=== PATIENT | male | born 1945 | race Caucasian/White ===

== ENCOUNTER 2022-04-10 10:54 | Observation (INO) | payer MEDICARE, MEDICAID, SELFPAY ==
[2022-04-10] VITALS (18 sets, daily range): BP systolic 120–156; BP diastolic 62–93; PULSE 78–101; RESP 12–100; TEMP 36.2–37; O2SAT 98–100; BMI 29.7
--- NOTE | ~2022-04-10 | US_ITS ---
EXAMINATION: US art doppler jessica JEFFERSON DATE: 04/10/2022 14:47 INDICATION: Ischemic second toe TECHNIQUE: Segmental pressures and plethysmographic and Doppler waveforms of the brachial and lower e xtremity arteries were obtained. COMPARISON: None. FINDINGS: Brachial artery pressure of 134 mm Hg . Right brachial artery pressures unable to be obtained due to the presence of intravascular axis at the right upper arm. The right and left high-thigh pressure ind ices are 1.21 and 1.31, respectively (normal > 1.2). Pressures unable to be obtained at the bilateral great toes due to wounds on both toes. The right ankle-brachial index (PATRICE) is 1.22 (normal >= 0.9-1). The right lower extremity segmental p ressure gradients are normal (normal gradients <= 20-30 mmHg between adjacent levels on the same leg or the same levels on the two legs). Arterial waveforms are triphasic at the right common femoral and dorsalis pedis arteries and biphasic at the right superficial femoral, popliteal and posterior tibia l arteries, each with brisk systolic upstrokes. The left PATRICE is 1.22. The left lower extremity segmental pressure gradients are normal. Arterial wave forms are triphasic at the left common femoral, superficial femoral, popliteal, dorsalis pedis arteri es and biphasic at the left posterior tibial artery, each with brisk systolic upstrokes. IMPRESSION: 1. Normal PATRICE's bilaterally. No significant occlusive disease. Reviewed, dictated and finalized at location A.
--- NOTE | ~2022-04-10 | XR_ITS ---
XR foot RT 2V 04/10/2022 12:10 Indication: Right second toe pain. Possible osteomyelitis. Procedure: 2 views right foot Comparison: No prior studies for comparison. Findings: There is a transverse lucency in the proximal aspect of the first distal phalanx. Cannot ex clude nondisplaced fracture. Osteopenia. No definite erosive changes or periosteal reaction to sugges t osteomyelitis. Lisfranc joint is grossly intact. There is soft tissue swelling surrounding the seco nd distal phalanx. No foreign bodies. Impression: 1: No definite evidence for osteomyelitis. Moderate soft tissue swelling surrounding the second dista l phalanx. Consider correlation with MRI if there is continuing clinical concern for osteomyelitis. 2: Possible nondisplaced transverse fracture proximal aspect of the first distal phalanx. Correlate f or point tenderness. Reviewed, dictated and finalized at location A. Impression: 1: No definite evidence for osteomyelitis. Moderate soft tissue swelling surrou nding the second distal phalanx. Consider correlation with MRI if there is cont inuing clinical concern for osteomyelitis. 2: Possible nondisplaced transverse fracture proximal aspect of the first dista l phalanx. Correlate for point tenderness.
[2022-04-10] MEDS: MORPHINE SULFATE (*CRX) 4 MG/ML INJ IV PUSH (11:44)
--- NOTE | 2022-04-10 11:53 | ED.GENADULT ---
HPI - General Adult General Chief complaint: Extremity Injury, Lower Stated complaint: right foot pain Time Seen by Provider: 04/10/22 11:12 History of Present Illness HPI narrative: 76-year-old male presents emergency room secondary pain to his right foot. He states she just been hobbling on it lately. He has not had good medical care or good hygiene for quite some time. He complaining of some tenderness to his right second toe. He has been putting layers and layers of bandages on it at this point. Denies any chills or fevers. He has not seen a physician in many years. He has been having this issue for several months. Related Data Home Medications Medication Instructions Recorded Confirmed No Home Medications 04/10/22 04/10/22 Allergies Allergy/AdvReac Type Severity Reaction Status Date / Time No Known Allergies Allergy Verified 08/31/17 15:07 Review of Systems Review of Systems: CONSTITUTIONAL: Denies fever, chills, or sweats. EYES: Denies visual changes, redness, or discharge. ENT: Denies rhinorrhea, congestion, sore throat, or otalgia. CARDIOVASCULAR: Denies chest pain, palpitations, or edema. RESPIRATORY: Denies cough or dyspnea. GASTROINTESTINAL: Denies abdominal pain, nausea, vomiting, or diarrhea. GENITOURINARY: Denies dysuria or hematuria. SKIN: Denies rash or itching. MUSCULOSKELETAL: Denies back pain, joint pain, or myalgia. Severe pain to the right foot NEUROLOGIC: Denies headache, numbness, or weakness. PSYCHIATRIC: Denies anxiety or depression. [facility] Past Medical History Medical History CAD (coronary artery disease) History of hyperlipidemia Not currently on medication. According to his records. History of hypertension Not currently on medication. HTN in history according to his records. History of obstructive sleep apnea According to his records Surgical History Surgical History History of cardiac catheterization 2019 Family History Family History (Updated 04/10/22 @ 16:14 by ARYAN Boyd) Other Family history unknown Social History Social History Living arrangements: with family Additional living arrangements comments: Lives with his brother Exam Narrative: APPEARANCE: Well appearing, no pain or distress, well-nourished. Head normocephalic and atraumatic. EYES: PERRLA/EOMI, conjunctivae very clear. NOSE: Normal with no drainage EARS:TMS clear Kevin Cheek, with good light reflex. THROAT: Pharynx clear, no exudate. NECK: Supple. No adenopathy, no masses. RESPIRATORY: Airway patent, respirations nonlabored. Clear to auscultation bilaterally, no rales, rhonchi, wheezing. CARDIOVASCULAR: Regular rate and rhythm without murmurs, rubs, or gallops. ABDOMINAL: Soft, nontender, nondistended, no hepatosplenomegaly Musculoskeletal: Moves all extremities. Strength/ROM intact, No edema, No calf tenderness. Extremely poor care of his feet. He has very large overgrown toenails. He has multiple layers of bandages to his right second toe. Is noted to be enlarged and swollen. On the plantar aspect at the metatarsal phalangeal joint area is an open lesion with purulent drainage and very foul-smelling. Patient was administered IV morphine and his pain is controlled and I was able to remove all the bandages from around the second toe. Patient is got soft tissue damage to the plantar aspect to the point that I can see the flexor tendons on the plantar aspect of the second right toe. NEURO: Alert. Cranial nerves II through XII intact. Normal gait. Good coordination. Nonfocal examination. SKIN:: Warm, dry. Normal Color PSYCHIATRIC: Normal affect/mood, normal interaction Course Vital Signs Vital signs: Vital Signs Temperature 97.1 F L 04/10/22 10:56 Pulse Rate 78 04/10/22 10:56 Respiratory Rate 100 H
[2022-04-10 12:09] LABS: Basophils Percent Auto 0.2 % (0.2-1.2); Eosinophils Absolute Auto 0.1 K/mm3 (0-0.3); Eosinophils Percent Auto 0.8 % (0-4.4); Hematocrit 41.6 % (42.0-52.0); Hemoglobin 13.8 g/dL (14.0-18.0); Immature Granulocyte Absolute 0.04 K/mm3 (0.00-0.031); Immature Granulocyte Percent A 0.4 % (0-0.5); Immature Platelet Fraction Pct 35.2 % (0.9-11.2); Lymphocytes Absolute Auto 0.91 K/mm3 (0.9-3.2); Lymphocytes Percent Auto 9.4 % (18.3-44.2); Mean Corpuscular HGB Conc 33.2 g/dl (32-36); Mean Corpuscular Hemoglobin 29.4 pg (26-34); Mean Corpuscular Volume 88.7 fl (80-100); Monocytes Absolute Auto 0.7 K/mm3 (0.1-0.6); Monocytes Percent Auto 7.3 % (2.6-8.5); Neutrophils Absolute Auto 7.9 K/mm3 (1.3-6.7); Neutrophils Percent Auto 81.9 % (45.5-73.1); Red Blood Count 4.69 M/mm3 (4.6-6.20); Red Cell Distribution Width 12.7 % (11.5-14.5); White Blood Count 9.7 K/mm3 (4.5-10.0)
[2022-04-10 12:19] LABS: Alanine Aminotransferase 11 U/L (6-50); Alkaline Phosphatase 97 U/L (38-126); Anion Gap 7 mmol/L (8-16); Aspartate Amino Transferase 18 U/L (17-59); Bilirubin,Total 0.8 mg/dL (0.2-1.3); Blood Urea Nitrogen 14 mg/dL (9-20); Calcium 8.2 mg/dL (8.4-10.2); Carbon Dioxide 27 mmol/L (22-30); Chloride 101 mmol/L (98-107); Estimated CRCL calculation 47 ml/min; Estimated Glomerular Filt Rate 59; Glucose 99 mg/dL (65-110); Potassium 4.3 mmol/L (3.4-5.0); Sodium 135 mmol/L (137-145)
[2022-04-10 12:22] LABS: CRP 6.2 mg/dL (<1.0)
[2022-04-10 12:35] LABS: Platelet Count Result < 3 k/mm3 (150-375)
[2022-04-10 14:04] LABS: SARS-CoV-2 RNA PCR Negative
--- NOTE | 2022-04-10 14:08 | PC.NURSE ---
PT has scaly skin including red under abd/groin area with an odor noted. Pt stated that the dsg to his right 2nd toe has been in place for a long time. Pt also has a dressing to his toe on his left foot but this was not removed per pt's request/ MD at bedside during assessment.
--- NOTE | 2022-04-10 15:35 | PM.IMHP ---
H&P: HPI History of Present Illness Date/Time: 04/10/22 15:35 Chief Complaint: Right foot pain. Narrative: This is a 76-year-old male with history of coronary artery disease, hypertension, hyperlipidemia, ITP, and other comorbidities who presented to the emergency department via EMS from home for evaluation of right foot pain for couple of months. He has a cognitive deficit with a poor memory and as such he is not the greatest historian and thus some of the following is obtained via a review of his electronic medical records. I also spoke with his brother Boni chavez with the patient's permission. Over the past couple of weeks, he has had increasing pain in the bottom of the right foot which he is not able to really qualify. He noticed a small wound on the right 2nd toe and he has been keeping this covered with a Band-Aid. He does not recall injuring the area but admits that he walks around barefoot a lot of the time. Unfortunately the pain in the foot has continued to get worse and he came in for evaluation today. Imaging of that foot showed no definitive evidence to suggest osteomyelitis though he has been started on antibiotics for possible infection. Also of note, he was found to have a platelet count of less than 3000 on initial lab draw. Repeat CBC confirms of thrombocytopenia with a platelet count of 8000. Looking back through his chart he does have a history of ITP in 2017 for which he was hospitalized and seen by Dr. Darden. The patient has not noticed any significant bleeding or rash though he has a fine petechial rash on his extremities on exam. He currently has no complaints. Review of Systems Review of Systems: Twelve systems were reviewed. No fever, chills, or sweats. No cold or flu symptoms. No sick contacts. No gingival bleeding, epistaxis, hematemesis, melena, hematochezia, or hematuria. Appetite has been good. No nausea, vomiting, or diarrhea. Except as documented, all other systems were reviewed and are negative. [facility] Past Medical History Medical History (Updated 04/10/22 @ 21:32 by Karina Campbell PA-C) Anxiety Coronary artery disease STEMI in fall 2018 status post PCI to the LAD. Hydrocephalus Hyperlipidemia Noted in previous records. Not currently on medication. Hypertension Noted in previous records. Not currently on medication. Intellectual disability Obstructive sleep apnea Noted in previous records. He does not use a CPAP. Surgical History Surgical History (Updated 04/10/22 @ 21:32 by Karina Campbell PA-C) History of appendectomy History of cardiac catheterization (2018) Fall 2018: PCI to the LAD done at [place]. 07/11/2019: Balloon angioplasty to the distal terminal LAD. History of esophagogastroduodenoscopy Family History Family History (Updated 04/10/22 @ 21:29 by Karina Campbell PA-C) Other Diabetes mellitus Social History Social History (Updated 04/10/22 @ 21:33 by Karina Campbell PA-C) Social History: Surrogate decision maker: Boni Melendrezbrother almendarez. Code status: Full code. Smoking status: Former smoker Alcohol intake: never Substance use: never Living arrangements: with family Additional living arrangements comments: The patient lives with his brother in [place]. Spiritual care concerns: No Meds Home Medications and Allergies Home Medications Medication Instructions Recorded Confirmed Type No Home Medications 04/10/22 04/10/22 History Allergies Allergy/AdvReac Type Severity Reaction Status Date / Time No Known Allergies Allergy Verified 08/31/17 15:07 Vital Signs Vital Signs - 24 hr 04/10/22 10:56 04/10/22 11:16 04/10/22 11:22 Temperature 97.1 F L 98.6 F 97.8 F Pulse Rate 78 101 H 87 Respiratory Rate 100 H 12 18 Blood Pressure 120/79 136/89 130/68 Pulse Oximetry 98 98 100 Oxygen Delivery Room Air 04/10/22 11:13 04/10/22 11:14 04/10/22 14:45 Temperature Pulse Rate Respiratory Rate Blood Pres
--- NOTE | 2022-04-10 15:58 | PM.CNGS ---
Assessment and Plan Assessment and plan (1) Open wound of right foot: Code(s): S91.301A - Unspecified open wound, right foot, initial encounter Status: Acute Assessment and Plan: This is the reason for our consultation. He has an open right second toe wound of unknown origin that has tendon widely exposed. His toe is swollen but there is no obvious purulent drainage at the time of my exam. No evidence of osteomyelitis on plain films. ABIs show no occlusive arterial disease. Will start local wound care with silver gel dressing changes daily, which would also aid in keeping the tendon moist. Due to the exposed tendon, we would recommend orthopedic surgery evaluation. May need further eval with MRI, but will await orthopedic recommendations. Will also consult wound care to help clean up his feet and toenails tomorrow. Thank you for allowing us to see the patient in consultation. (2) Thrombocytopenia: Code(s): D69.6 - Thrombocytopenia, unspecified Status: Acute Assessment and Plan: Platelets < 3,000 which is a contraindication for any surgical procedure, but fortunately there is no need for any urgent surgical intervention at this time. Management per Hospitalist. Monitor labs. (3) Poor personal hygiene: Code(s): R46.0 - Very low level of personal hygiene Status: Acute Assessment and Plan: Discussed the importance of taking care of his foot and keeping this wound clean. Plan I have discussed the patient's case and plan of care with Dr. Dixon. History of Present Illness Consult details Consult date: 04/10/22 Reason for consult: wound care (Right 2nd toe wound) Requesting physician: Alonso Liang, Narrative: This is a 76 yo male who presented to the ER with a right 2nd toe wound. The patient is a poor historian and is unable to provide much history. He cannot recall when or how the wound started, but believes he has been having pain in his foot for at least 2-3 months. He cannot recall any injury. He cannot recall any of his health history. He doesn't recall the last time he washed his feet, but states it isn't very often. Work-up in the ER showed a normal white blood cell count with severe thrombocytopenia with platelets of < 3,000. The ER physician found layers and layers of bandages over his right foot that took a substantial amount of time to remove. He was given IV Morphine for his foot pain. After removing all bandages, he was found to have a wound on the plantar aspect of his second toe with tendon exposed and suspected infection. X-rays of the right foot showed no evidence of osteomyelitis. There is noted to be soft tissue swelling of the right second toe and possible fracture of the proximal aspect of the first distal phalanx. He has no point tenderness on exam. ABIs done in ER and normal. Our service was consulted for the right toe wound. He will be admitted to the Hospitalist. Type and screen has been ordered. Review of Systems Review of Systems: ROS unobtainable: Yes unobtainable due to mental status and other (Limited due to him being a poor historian) [facility] Past Medical History Medical History CAD (coronary artery disease) History of hyperlipidemia Not currently on medication. According to his records. History of hypertension Not currently on medication. HTN in history according to his records. History of obstructive sleep apnea According to his records Surgical History Surgical History History of cardiac catheterization 2019 Family History Family History (Updated 04/10/22 @ 16:14 by ARYAN Boyd) Other Family history unknown Social History Social History Living arrangements: with family Additional living arrangements comments: Lives with his brother Meds Home Medications and A
[2022-04-10 16:02] LABS: Basophils Percent Auto 0.3 % (0.2-1.2); Eosinophils Absolute Auto 0.1 K/mm3 (0-0.3); Eosinophils Percent Auto 1.1 % (0-4.4); Hematocrit 38.9 % (42.0-52.0); Hemoglobin 13.3 g/dL (14.0-18.0); Immature Granulocyte Absolute 0.05 K/mm3 (0.00-0.031); Immature Granulocyte Percent A 0.5 % (0-0.5); Lymphocytes Absolute Auto 1.31 K/mm3 (0.9-3.2); Lymphocytes Percent Auto 12.9 % (18.3-44.2); Mean Corpuscular HGB Conc 34.2 g/dl (32-36); Mean Corpuscular Hemoglobin 29.8 pg (26-34); Mean Corpuscular Volume 87.2 fl (80-100); Monocytes Absolute Auto 0.8 K/mm3 (0.1-0.6); Monocytes Percent Auto 7.4 % (2.6-8.5); Neutrophils Absolute Auto 7.9 K/mm3 (1.3-6.7); Neutrophils Percent Auto 77.8 % (45.5-73.1); Red Blood Count 4.46 M/mm3 (4.6-6.20); Red Cell Distribution Width 12.9 % (11.5-14.5); White Blood Count 10.1 K/mm3 (4.5-10.0)
[2022-04-10 16:27] LABS: Platelet Count Result 8 k/mm3 (150-375)
[2022-04-10] MEDS: methylPREDNISolone SOD SUCC 125 MG VIAL IV PUSH (17:57)
[2022-04-10] MEDS: EUCERIN CREAM 120 GM JAR 1 APPLIC TOPICAL (18:00)
--- NOTE | 2022-04-10 18:24 | ADMGEN ---
This patient, Eduardo Flores, was admitted to 3 Med Surg Room 315-01. Patient/family oriented to hospital policies and general routines including ID bracelet, bed and alarms, visiting hours, pain management, procedures, bathroom and other care routines, personal items, smoking policy, room service/diet, and visiting hours. Information on how to activate the Rapid Response Team has been discussed. Patient/Family are encouraged to report perceived risks to care and to ask questions if they do not understand what they are told or what they should do.
[2022-04-11] VITALS (10 sets, daily range): BP systolic 107–146; BP diastolic 63–80; PULSE 71–89; RESP 16–18; TEMP 36.1–37; O2SAT 95–100
[2022-04-11] MEDS: methylPREDNISolone SOD SUCC 125 MG VIAL IV PUSH ×2 (06:11→17:52)
[2022-04-11 07:58] LABS: Hematocrit 46.4 % (42.0-52.0); Hemoglobin 15.7 g/dL (14.0-18.0); Immature Platelet Fraction Pct 46.2 % (0.9-11.2); Mean Corpuscular HGB Conc 33.8 g/dl (32-36); Mean Corpuscular Hemoglobin 29.7 pg (26-34); Mean Corpuscular Volume 87.7 fl (80-100); Red Blood Count 5.29 M/mm3 (4.6-6.20); Red Cell Distribution Width 12.5 % (11.5-14.5); White Blood Count 9.7 K/mm3 (4.5-10.0)
[2022-04-11 08:02] LABS: Anion Gap 9 mmol/L (8-16); Blood Urea Nitrogen 17 mg/dL (9-20); Calcium 8.3 mg/dL (8.4-10.2); Carbon Dioxide 23 mmol/L (22-30); Chloride 102 mmol/L (98-107); Estimated CRCL calculation 50 ml/min; Estimated Glomerular Filt Rate > 60; Glucose 145 mg/dL (65-110); Magnesium 2.3 mg/dL (1.6-2.3); Potassium 4.4 mmol/L (3.4-5.0); Sodium 134 mmol/L (137-145)
[2022-04-11 08:15] LABS: Platelet Count Result < 3 k/mm3 (150-375)
[2022-04-11] MEDS: SILVERGEL (ELTA) 45 ML 1 APPLIC TOPICAL (09:30)
--- NOTE | 2022-04-11 10:37 | PM.PNGS ---
Progress Note: A&P Assessment and Plan (1) Open wound of right foot: Code(s): S91.301A - Unspecified open wound, right foot, initial encounter Status: Acute Assessment and Plan: appreciate wound care input, await ortho recs, no acute surgical issues as wound is clean and there is no s/s infection Subjective Subjective Date/Time Seen: 04/11/22 10:37 no acute issues, still c/o pain in R foot but not worse Review of Systems Review of Systems: All systems reviewed & are unremarkable except as noted in HPI and below Exam Const: General: cooperative, comfortable and poor hygiene Resp: Auscultation: clear to auscultation bilaterally Cardio: Rate: regular rate Rhythm: regular rhythm GI: GI Palp: No abdominal tenderness and Yes Soft to palpation Skin: Other: R foot - dressing C/D/I Objective Data Vital Signs Vital Signs: Vital Signs - 24 hr 04/10/22 10:56 04/10/22 11:16 04/10/22 11:22 Temperature 36.2 C L 37.0 C 36.6 C Pulse Rate 78 101 H 87 Respiratory Rate 100 H 12 18 Blood Pressure 120/79 136/89 130/68 Pulse Oximetry 98 98 100 Oxygen Delivery Room Air 04/10/22 11:13 04/10/22 11:14 04/10/22 14:45 Temperature Pulse Rate Respiratory Rate Blood Pressure 146/93 H 142/62 H Pulse Oximetry 100 100 100 Oxygen Delivery 04/10/22 14:46 04/10/22 15:01 04/10/22 15:08 Temperature Pulse Rate Respiratory Rate Blood Pressure 126/66 126/64 Pulse Oximetry 100 100 100 Oxygen Delivery 04/10/22 15:17 04/10/22 15:31 04/10/22 15:46 Temperature Pulse Rate Respiratory Rate Blood Pressure 135/75 156/72 H Pulse Oximetry 100 Oxygen Delivery 04/10/22 16:01 04/10/22 16:16 04/10/22 17:15 Temperature Pulse Rate Respiratory Rate Blood Pressure 130/66 127/62 Pulse Oximetry 100 Oxygen Delivery 04/10/22 17:30 04/10/22 18:22 04/10/22 22:00 Temperature 36.9 C Pulse Rate 91 82 Respiratory Rate 16 16 Blood Pressure 139/69 139/69 Pulse Oximetry 99 99 99 Oxygen Delivery 04/10/22 20:00 04/11/22 06:00 Temperature 36.1 C L Pulse Rate 78 Respiratory Rate 16 Blood Pressure 146/72 H Pulse Oximetry 100 Oxygen Delivery Room Air Intake/Output Intake/Output: Intake & Output 04/08/22 04/09/22 04/10/22 04/11/22 23:59 23:59 23:59 23:59 Intake Total 250 950 Output Total 200 Balance 250 750 Meds/Results Medications: Active Medications Generic Name Dose Route Start Last Admin Trade Name Hailey PRN Reason Stop Dose Admin Methylprednisolone Sodium Succinate 125 mg 04/11/22 06:00 04/11/22 06:11 Methylprednisolone Sod Succ 125 Mg Vial IV PUSH 125 mg Q12H MARIEL Administration Multi-Ingred Cream/Lotion/Oil/Oint 1 applic 04/11/22 09:00 04/10/22 18:00 Eucerin Cream 120 Gm Jar TOPICAL 1 applic DAILY MARIEL Administration Pantoprazole Sodium 40 mg 04/11/22 09:00 Pantoprazole 40 Mg Tablet PO QAM MARIEL Silver Nitrate 1 applic 04/10/22 16:05 04/10/22 20:30 Silvergel (Elta) 45 Ml TOPICAL Not Given DAILY [facility] Radiology Results: ITS Impressions Foot X-Ray 04/10/22 12:17 Impression: 1: No definite evidence for osteomyelitis. Moderate soft tissue swelling surrounding the second distal phalanx. Consider correlation with MRI if there is continuing clinical concern for osteomyelitis. 2: Possible nondisplaced transverse fracture proximal aspect of the first distal phalanx. Correlate for point tenderness. Doppler Study Ultrasound 04/10/22 14:51 IMPRESSION: 1. Normal PATRICE's bilaterally. No significant occlusive disease. Labs Labs: Laboratory Results - last 24 hr 04/10/22 04/10/22 04/10/22 11:57 11:57 11:57 WBC 9.7 RBC 4.69 Hgb 13.8 L Hct 41.6 L MCV 88.7 MCH 29.4 MCHC 33.2 RDW 12.7 Plt Count < 3 L* MPV TNP Immature Gran % (Auto) 0.4 Neut % (Auto) 81.9 H Lymph % (Auto) 9.[address] [place] % (Auto) 7.3 Eos % (
[2022-04-11] MEDS: PANTOPRAZOLE 40 MG TABLET PO (10:39)
--- NOTE | 2022-04-11 15:56 | PM.IMPN ---
Progress Note: A&P Assessment and Plan (1) Open wound of right foot: Code(s): S91.301A - Unspecified open wound, right foot, initial encounter Status: Acute Assessment and Plan: The patient cannot provide details regarding the wound, how or when it was obtained. General surgery was consulted and appreciate their input. Wound nurse has also been consulted. Does not appear to be infected. Plan to continue wound care. (2) Thrombocytopenia: Code(s): D69.6 - Thrombocytopenia, unspecified Status: Acute Assessment and Plan: Patient has a history of ITP. Dr. Darden was consulted and he recommended starting Solu-Medrol 125 mg b.i.d. At this time there is no active bleeding. Plt count <3000. Discussed with Dr Darden with plans for transfusion today. Continue bleeding precautions and repeat platelet count in the morning. (3) Coronary artery disease: Code(s): I25.10 - Atherosclerotic heart disease of [place] coronary artery without angina pectoris Status: Acute Assessment and Plan: Patient with CAD status post PCI to the LAD in the fall of 2018. He is not currently taking any medications at home. No symptoms. Continue to monitor (4) Hypertension: Code(s): I10 - Essential (primary) hypertension Status: Acute Assessment and Plan: Patient's blood pressure was reviewed on 04/11. Patient with diet-controlled hypertension. Blood pressure remains well controlled. Continue to follow. Subjective Date/time seen: 04/11/22 15:56 Interval history: 76yo male with intellectual disability, ITP, CAD, HTN and ITP here for right foot pain. Patient feels well today. No complaints of CP or SOB. No significant right foot pain. Eating well. No n/v. Denies melena, hematochezia, hematuria or hemoptysis. Exam Narrative: AF 97.6 114/65 71 16 99% ra Gen - NARD sitting up in chair feeding himself Chest - CTA bilaterally, nml RR CV - RRR S1/S2 Abd - Soft, NT/ND, Positive BS. no obvious splenomegaly Ext - No pedal edema. right foot dressing with small dried red stain overlying the toes o/w clean/dry/intact Psych - Nml mood and affect. in good spirits Skin - Warm and dry. diffuse petechial rash. Objective Data Vital Signs Vital Signs: Vital Signs - 24 hr 04/10/22 16:01 04/10/22 16:16 04/10/22 17:15 Temperature Pulse Rate Respiratory Rate Blood Pressure 130/66 127/62 Pulse Oximetry 100 Oxygen Delivery 04/10/22 17:30 04/10/22 18:22 04/10/22 22:00 Temperature 98.5 F Pulse Rate 91 82 Respiratory Rate 16 16 Blood Pressure 139/69 139/69 Pulse Oximetry 99 99 99 Oxygen Delivery 04/10/22 20:00 04/11/22 06:00 04/11/22 08:50 Temperature 96.9 F L Pulse Rate 78 Respiratory Rate 16 Blood Pressure 146/72 H Pulse Oximetry 100 Oxygen Delivery Room Air Room Air 04/11/22 13:26 Temperature 97.6 F Pulse Rate 71 Respiratory Rate 16 Blood Pressure 114/65 Pulse Oximetry 99 Oxygen Delivery Intake/Output Intake/Output: Intake & Output 04/08/22 04/09/22 04/10/22 04/11/22 23:59 23:59 23:59 23:59 Intake Total 250 2350 Output Total 400 Balance 250 1950 Meds/Results Medications: Active Medications Generic Name Dose Route Start Last Admin Trade Name Freq PRN Reason Stop Dose Admin Methylprednisolone Sodium Succinate 125 mg 04/11/22 06:00 04/11/22 06:11 Methylprednisolone Sod Succ 125 Mg Vial IV PUSH 125 mg Q12H MARIEL Administration Multi-Ingred Cream/Lotion/Oil/Oint 1 applic 04/11/22 09:00 04/10/22 18:00 Eucerin Cream 120 Gm Jar TOPICAL 1 applic DAILY MARIEL Administration Pantoprazole Sodium 40 mg 04/11/22 09:00 04/11/22 10:39 Pantoprazole 40 Mg Tablet PO 40 mg QAM MARIEL Administration Silver Nitrate 1 applic 04/10/22 16:05 04/10/22 20:30 Silvergel (Elta) 45 Ml TOPICAL Not Given DAILY [facility] Radiology Results: ITS Impressions Foot X-Ray 04/10/22 12:1
--- NOTE | 2022-04-11 16:22 | PDONCCN ---
[facility] - Date of Consult Date/Time: 04/11/22 16:22 Requesting Physician: Moody House MD Primary Care Provider: UNKNOWN,DOCTOR - Consult Narrative Reason for consult: ITP Narrative: Eduardo Flores is a 76 year old male with history of chronic ITP, coronary artery disease and hyperlipidemia came into the ER with right foot pain going on for couple of months duration. He denies any prior injury. Foot x-ray showed no definite evidence of osteomyelitis. Patient is a poor historian. He denies any bleeding but does have some bruises in hands. He denies any fevers and chills. He denies any new lumps bowels and lymphadenopathy. No melena hematochezia. Labs showed platelet count of less than 3000. Patient has a history of ITP and was seen last in September 2017. At that time his platelet count was 5000 on admission. He received treatment with a steroid at that time. He also received IV IgG treatment. Review of Systems - Review of Systems All systems reviewed & are unremarkable except as noted in [facility] and [facility] Medical History: Medical History (Last Updated 04/10/22 @ 21:32 by Karina Campbell PA-C) Anxiety Coronary artery disease STEMI in fall 2018 status post PCI to the LAD. Hydrocephalus Hyperlipidemia Noted in previous records. Not currently on medication. Hypertension Noted in previous records. Not currently on medication. Intellectual disability Obstructive sleep apnea Noted in previous records. He does not use a CPAP. Surgical History: Surgical History (Last Updated 04/10/22 @ 21:32 by Karina Campbell PA-C) History of appendectomy History of cardiac catheterization Onset Date: fall: PCI to the LAD done at [facility]. 07/11/2019: Balloon angioplasty to the distal terminal LAD. History of esophagogastroduodenoscopy Family History: Family History (Last Updated 04/10/22 @ 21:29 by Karina Campbell PA-C) Other Diabetes mellitus - Social History Social History: Social History (Last Updated 04/10/22 @ 21:33 by Karina Campbell PA-C) Alcohol Use: Alcohol intake: never Substance Use: Substance use: never Others: Spiritual care concerns: No Living Arrangements: Living arrangements: with family Smoking Status: Smoking status: Former smoker Meds Home Medications Medication Instructions Recorded Confirmed Type No Home Medications 04/10/22 04/10/22 History Allergies Allergy/AdvReac Type Severity Reaction Status Date / Time No Known Allergies Allergy Verified 08/31/17 15:07 Results - Labs CBC & Chem 7: 04/11/22 07:34 04/11/22 07:34 Labs: Short CBC 04/10/22 04/11/22 Range/Units 15:54 07:34 WBC 10.1 H 9.7 (4.5-10.0) K/mm3 Hgb 13.3 L 15.7 (14.0-18.0) g/dL Hct 38.9 L 46.4 (42.0-52.0) % Plt Count 8 L* D < 3 L* D (150-375) k/mm3 BMP 04/11/22 07:34 Sodium 134 L Potassium 4.4 Chloride 102 Carbon Dioxide 23 BUN 17 Creatinine 1.00 Glucose 145 H Calcium 8.3 L Assessment and Plan - Additional Plan Chronic ITP. Patient is now has a flare up of ITP. Likely secondary to the right foot infection. Patient is a poor historian. He was found to have acute ITP in 2016 when his platelet count was only 5000. Now he came into the hospital with right foot infection going on for 2 months duration. Right foot x-ray showed no definitive evidence of osteomyelitis. He denies any fevers and chills. He denies any bleeding. I have reviewed these labs. This is consistent with ITP. Patient has been started on Solu-Medrol 125 mg q.12 hours. Platelet count remains low. We will proceed with 2 units of platelet transfusion today. We will also add IV IgG treatment. Patient will continue prednisone taper upon discharge. I plan to start him on prednisone 60 mg twice a day with 10 mg taper on every 4 day once platelet count is more than 50,000. He can be discharged home onc
[2022-04-11] MEDS: SODIUM CHLORIDE 0.9% IV 250 ML 30 ML IV CONT (18:29)
[2022-04-12 02:26] VITALS: BP 128/80; PULSE 74; RESP 16; TEMP 36.7; O2SAT 96
[2022-04-12 05:49] VITALS: BP 128/59; PULSE 71; RESP 16; TEMP 37.1; O2SAT 96
[2022-04-12] MEDS: methylPREDNISolone SOD SUCC 125 MG VIAL IV PUSH ×2 (06:27→17:29)
[2022-04-12 07:12] LABS: Basophils Percent Auto 0.1 % (0.2-1.2); Hematocrit 37.4 % (42.0-52.0); Hemoglobin 12.5 g/dL (14.0-18.0); Immature Granulocyte Absolute 0.21 K/mm3 (0.00-0.031); Immature Granulocyte Percent A 0.9 % (0-0.5); Immature Platelet Fraction Pct 12.8 % (0.9-11.2); Lymphocytes Absolute Auto 0.65 K/mm3 (0.9-3.2); Lymphocytes Percent Auto 2.9 % (18.3-44.2); Mean Corpuscular HGB Conc 33.4 g/dl (32-36); Mean Corpuscular Volume 86.8 fl (80-100); Mean Platelet Volume 11.5 fl (7.4-10.4); Monocytes Percent Auto 4.4 % (2.6-8.5); Neutrophils Absolute Auto 20.3 K/mm3 (1.3-6.7); Neutrophils Percent Auto 91.7 % (45.5-73.1); Platelet Count Result 75 k/mm3 (150-375); Red Blood Count 4.31 M/mm3 (4.6-6.20); Red Cell Distribution Width 12.6 % (11.5-14.5); White Blood Count 22.1 K/mm3 (4.5-10.0)
[2022-04-12 08:30] LABS: Folic Acid 6.7 ng/mL (2.76->20)
--- NOTE | 2022-04-12 09:16 | PM.PNGS ---
Progress Note: A&P Assessment and Plan (1) Open wound of right foot: Code(s): S91.301A - Unspecified open wound, right foot, initial encounter Status: Acute Assessment and Plan: cont local wound care, no acute issues, will need coverage of tendon vs amputation but can be done as outpt, ok to dc from surgical standpoint once medically stable (2) Thrombocytopenia: Code(s): D69.6 - Thrombocytopenia, unspecified Status: Acute Assessment and Plan: improved c steroids per hematology, cont mgmt per heme Subjective Subjective Date/Time Seen: 04/12/22 09:16 no acute issues, resting comfortably this am Review of Systems Review of Systems: All systems reviewed & are unremarkable except as noted in HPI and below Exam Const: General: no acute distress and poor hygiene Resp: Auscultation: clear to auscultation bilaterally Cardio: Rate: regular rate Rhythm: regular rhythm GI: Inspection: normal to inspection Skin: Other: R foot wound - drsg C/D/I Objective Data Vital Signs Vital Signs: Vital Signs - 24 hr 04/11/22 13:26 04/11/22 18:34 04/11/22 18:55 Temperature 36.4 C 36.1 C L 36.1 C L Pulse Rate 71 88 86 Respiratory Rate 16 18 18 Blood Pressure 114/65 113/70 107/63 Pulse Oximetry 99 96 97 04/11/22 18:58 04/11/22 21:18 04/11/22 21:39 Temperature 36.6 C 36.7 C 36.7 C Pulse Rate 89 84 89 Respiratory Rate 16 16 16 Blood Pressure 124/79 124/80 124/79 Pulse Oximetry 99 99 99 04/11/22 21:25 04/11/22 22:37 04/11/22 23:37 Temperature 36.2 C L 37.0 C 36.9 C Pulse Rate 79 82 86 Respiratory Rate 16 16 16 Blood Pressure 128/71 118/68 128/78 Pulse Oximetry 95 95 95 04/12/22 02:26 04/12/22 05:49 Temperature 36.7 C 37.1 C Pulse Rate 74 71 Respiratory Rate 16 16 Blood Pressure 128/80 128/59 L Pulse Oximetry 96 96 Intake/Output Intake/Output: Intake & Output 07/06/22 07/07/22 07/08/22 07/09/22 23:59 23:59 23:59 23:59 Intake Total 250 3370 1083 Output Total 900 Balance 250 2470 1083 Meds/Results Medications: Active Medications Generic Name Dose Route Start Last Admin Trade Name Hailey PRN Reason Stop Dose Admin Immune Globulin 79 gm/ N/A 790 mls @ 23.7 mls/hr 04/11/22 16:17 04/12/22 02:42 IVPB 04/13/22 01:36 0.5 mg/kg/min ONCE ONE 23.7 mls/hr Administration 0.5 MG/KG/MIN Methylprednisolone Sodium Succinate 125 mg 04/11/22 06:00 04/12/22 06:27 Methylprednisolone Sod Succ 125 Mg Vial IV PUSH 125 mg Q12H MARIEL Administration Multi-Ingred Cream/Lotion/Oil/Oint 1 applic 04/11/22 09:00 04/10/22 18:00 Eucerin Cream 120 Gm Jar TOPICAL 1 applic DAILY MARIEL Administration Silver Nitrate 1 applic 04/10/22 16:05 04/11/22 09:30 Silvergel (Elta) 45 Ml TOPICAL 1 applic DAILY MARIEL Administration Radiology Results: ITS Impressions Foot X-Ray 04/10/22 12:17 Impression: 1: No definite evidence for osteomyelitis. Moderate soft tissue swelling surrounding the second distal phalanx. Consider correlation with MRI if there is continuing clinical concern for osteomyelitis. 2: Possible nondisplaced transverse fracture proximal aspect of the first distal phalanx. Correlate for point tenderness. Doppler Study Ultrasound 04/10/22 14:51 IMPRESSION: 1. Normal PATRICE's bilaterally. No significant occlusive disease. Labs Labs: Laboratory Results - last 24 hr 04/10/22 04/12/22 04/12/22 11:57 07:02 07:02 WBC 22.1 H RBC 4.31 L Hgb 12.5 L D Hct 37.4 L MCV 86.8 MCH 29.0 MCHC 33.4 RDW 12.6 Plt Count 75 L D MPV 11.5 H Immature Gran % (Auto) 0.9 H Neut % (Auto) 91.7 H Lymph % (Auto) 2.9 L [place] % (Auto) 4.4 Eos % (Auto) 0.0 Baso % (Auto) 0.1 L Lymph # (Auto) 0.65 L [place] # (Auto) 1.0 H Eos # (Auto) 0.0 Baso # (Auto) 0.0 Abs Immat Gran (auto) 0.21 H Absolute Neuts (auto) 20.3 H Absolute Nucleated RBC 0.0 Nucleated RBC % 0.0 %
--- NOTE | 2022-04-12 12:29 | PM.IMPN ---
Progress Note: A&P Assessment and Plan (1) Open wound of right foot: Code(s): S91.301A - Unspecified open wound, right foot, initial encounter Status: Acute Assessment and Plan: The patient cannot provide details regarding the wound, how or when it was obtained. General surgery was consulted and appreciate their input. Wound nurse has also been consulted. Does not appear to be infected. Plan to continue current wound care. Plan to return home after discharge with brother. Start PT/OT. (2) Thrombocytopenia: Code(s): D69.6 - Thrombocytopenia, unspecified Status: Acute Assessment and Plan: Patient has a history of ITP. Dr. Darden was consulted and he recommended starting Solu-Medrol 125 mg b.i.d. At this time there is no active bleeding. Plt count was <3000. Patient was transfused 2U platelets. IVIg also started. Plt count up to 75K. Continue steroids. Continue to monitor. (3) Coronary artery disease: Code(s): I25.10 - Atherosclerotic heart disease of [place] coronary artery without angina pectoris Status: Acute Assessment and Plan: Patient with CAD status post PCI to the LAD in the fall of 2018. He is not currently taking any medications at home. No symptoms. Continue to monitor (4) Hypertension: Code(s): I10 - Essential (primary) hypertension Status: Acute Assessment and Plan: Patient's blood pressure was reviewed on 04/12 Patient with diet-controlled hypertension. Blood pressure remains well controlled. Continue to follow. Plan DVT prophylaxis: SCDs Code status: Full Subjective Date/time seen: 04/12/22 12:29 Interval history: 76yo male with intellectual disability, ITP, CAD, HTN and ITP here for right foot pain. Slept well last night. No complaints of chest pain, shortness of breath, nausea, vomiting, cough or abdominal pain. Eating normally. No evidence of acute blood loss. Tolerated the transfusion well last night Exam Narrative: AF 98.7 128/59 71 16 96% ra Gen - NARD lying semi-recumbent in bed Chest - few basilar inspiratory crackles. nml RR CV - RRR S1/S2 Abd - Soft, NT/ND, Positive BS Ext - No pedal edema. Psych - Nml mood and affect. in good spirits Skin - Warm and dry. diffuse petechial rash. Objective Data Vital Signs Vital Signs: Vital Signs - 24 hr 04/11/22 13:26 04/11/22 18:34 04/11/22 18:55 Temperature 97.6 F 97.0 F L 96.9 F L Pulse Rate 71 88 86 Respiratory Rate 16 18 18 Blood Pressure 114/65 113/70 107/63 Pulse Oximetry 99 96 97 Oxygen Delivery 04/11/22 18:58 04/11/22 21:18 04/11/22 21:39 Temperature 98 F 98.1 F 98.1 F Pulse Rate 89 84 89 Respiratory Rate 16 16 16 Blood Pressure 124/79 124/80 124/79 Pulse Oximetry 99 99 99 Oxygen Delivery 04/11/22 21:25 04/11/22 22:37 04/11/22 23:37 Temperature 97.1 F L 98.6 F 98.4 F Pulse Rate 79 82 86 Respiratory Rate 16 16 16 Blood Pressure 128/71 118/68 128/78 Pulse Oximetry 95 95 95 Oxygen Delivery 04/12/22 02:26 04/12/22 05:49 04/12/22 08:00 Temperature 98.1 F 98.7 F Pulse Rate 74 71 Respiratory Rate 16 16 Blood Pressure 128/80 128/59 L Pulse Oximetry 96 96 Oxygen Delivery Room Air Intake/Output Intake/Output: Intake & Output 04/09/22 04/10/22 04/11/22 04/12/22 23:59 23:59 23:59 23:59 Intake Total 250 3370 1203 Output Total 900 Balance 250 2470 1203 Meds/Results Medications: Active Medications Generic Name Dose Route Start Last Admin Trade Name Freq PRN Reason Stop Dose Admin Immune Globulin 79 gm/ N/A 790 mls @ 23.7 mls/hr 04/11/22 16:17 04/12/22 02:42 IVPB 04/13/22 01:36 0.5 mg/kg/min ONCE ONE 23.7 mls/hr Administration 0.5 MG/KG/MIN Methylprednisolone Sodium Succinate 125 mg 04/11/22 06:00 04/12/22 06:27 Methylprednisolone Sod Succ 125 Mg Vial IV PUSH 125 mg Q12H MARIEL Administration Multi-Ingred Cream/Lotion/Oil/Oint 1 applic 04/11/22 09:00
[2022-04-12 14:00] VITALS: BP 102/88; PULSE 76; RESP 18; TEMP 36.4; O2SAT 96
[2022-04-12] MEDS: SILVERGEL (ELTA) 45 ML 1 APPLIC TOPICAL (16:17)
[2022-04-12] MEDS: EUCERIN CREAM 120 GM JAR 1 APPLIC TOPICAL (17:28)
[2022-04-12 21:59] VITALS: BP 128/76; PULSE 79; RESP 18; TEMP 36.6; O2SAT 96
[2022-04-12 22:18] VITALS: O2SAT 96
[2022-04-13] MEDS: methylPREDNISolone SOD SUCC 125 MG VIAL IV PUSH (05:22)
[2022-04-13 05:33] VITALS: BP 132/77; PULSE 83; RESP 18; TEMP 36.9; O2SAT 97
[2022-04-13 06:55] LABS: Basophils Percent Auto 0.1 % (0.2-1.2); Hematocrit 38.2 % (42.0-52.0); Hemoglobin 12.9 g/dL (14.0-18.0); Immature Granulocyte Absolute 0.23 K/mm3 (0.00-0.031); Immature Granulocyte Percent A 1.3 % (0-0.5); Lymphocytes Absolute Auto 0.56 K/mm3 (0.9-3.2); Lymphocytes Percent Auto 3.2 % (18.3-44.2); Mean Corpuscular HGB Conc 33.8 g/dl (32-36); Mean Corpuscular Hemoglobin 29.4 pg (26-34); Monocytes Absolute Auto 0.6 K/mm3 (0.1-0.6); Monocytes Percent Auto 3.5 % (2.6-8.5); Neutrophils Absolute Auto 16.1 K/mm3 (1.3-6.7); Neutrophils Percent Auto 91.9 % (45.5-73.1); Platelet Count Result 114 k/mm3 (150-375); Red Blood Count 4.39 M/mm3 (4.6-6.20); Red Cell Distribution Width 12.7 % (11.5-14.5); White Blood Count 17.5 K/mm3 (4.5-10.0)
[2022-04-13] MEDS: EUCERIN CREAM 120 GM JAR 1 APPLIC TOPICAL (08:36)
[2022-04-13] MEDS: SILVERGEL (ELTA) 45 ML 1 APPLIC TOPICAL (09:17)
[2022-04-13 14:00] VITALS: BP 129/59; PULSE 77; RESP 20; TEMP 35.7; O2SAT 99
--- NOTE | 2022-04-13 16:59 | PCCCNOTE ---
Nurse [facility] called and stated pt needs cab voucher for ride home. Cab voucher provided.
--- NOTE | 2022-04-13 17:00 | PM.DS ---
DS: Admitting Diagnosis Discharge Date 04/13/22 Admitting Diagnosis Right foot pain DS: Discharge Diagnosis Discharge Diagnosis (1) Open wound of right foot: Code(s): S91.301A - Unspecified open wound, right foot, initial encounter Status: Acute Assessment and Plan: The patient cannot provide details regarding the wound, how or when it was obtained. General surgery was consulted and appreciate their input. No indication for surgery. Wound nurse was also consulted. Did not appear to be infected. Plan to continue current wound care. Plan to return home after discharge with brother. (2) Thrombocytopenia: Code(s): D69.6 - Thrombocytopenia, unspecified Status: Acute Assessment and Plan: Patient has a history of ITP. Plately count was <3000. Dr. Darden was consulted and he recommended starting Solu-Medrol 125 mg b.i.d. There was no active bleeding. Patient was transfused 2U platelets. IVIg started. Plt count up to 114K. Discussed with Dr Darden who recommended Prednisone 60mg BID to wean by 10mg every 3 days until off. Plan to discharge with a tapering course of steroids as outpatient. A hand typed prednisone tapering schedule was given with decreasing the evening dose by 10mg every 3 days until off then taper the morning dose. (3) Coronary artery disease: Code(s): I25.10 - Atherosclerotic heart disease of [place] coronary artery without angina pectoris Status: Acute Assessment and Plan: Patient with CAD status post PCI to the LAD in the fall of 2018. He is not currently taking any medications at home. No symptoms. Continue to monitor (4) Hypertension: Code(s): I10 - Essential (primary) hypertension Status: Acute Assessment and Plan: Patient's blood pressure was monitored closely. Patient with diet-controlled hypertension. Blood pressure remained well controlled. DS: Summary Hospital Course Reason for hospitalization: 76yo male with intellectual disability, ITP, CAD, HTN and ITP here for right foot pain. Please see H&P for details. Hospital Course: Please see above for details of hospital course. Status at Discharge Cognitive/behavioral status at discharge: Stable Time Spent with Patient Time attestation: Total time spent providing and/or coordinating discharge services: 35 minutes Time spent: Greater than 30 minutes Exam Narrative: AF 96.2 129/59 77 20 99% ra Gen - NARD lying semi-recumbent in bed Chest - CTA bilaterally, nml RR CV - RRR S1/S2 Abd - Soft, NT/ND, Positive BS Ext - No pedal edema. Right foot dressing clean and dry Psych - Nml mood and affect. Skin - Warm and dry. diffuse petechial rash. small shallow ulcer mid back without drainage or erythema. DS: Data Data Completed and Pending Labs on day of discharge: Labs from last 24 hours 04/13/22 06:11 WBC 17.5 H RBC 4.39 L Hgb 12.9 L Hct 38.2 L MCV 87.0 MCH 29.4 MCHC 33.8 RDW 12.7 Plt Count 114 L D MPV 12.0 H Immature Gran % (Auto) 1.3 H Neut % (Auto) 91.9 H Lymph % (Auto) 3.2 L [place] % (Auto) 3.5 Eos % (Auto) 0.0 Baso % (Auto) 0.1 L Lymph # (Auto) 0.56 L [place] # (Auto) 0.6 Eos # (Auto) 0.0 Baso # (Auto) 0.0 Abs Immat Gran (auto) 0.23 H Absolute Neuts (auto) 16.1 H Absolute Nucleated RBC 0.0 Nucleated RBC % 0.0 Discharge Plan Discharge Attending physician on discharge: Joseph House Consulting providers: Jovita Dixon ; Tomasz Darden Discharging Clinician: Joseph House Anticipated Discharge Date/Time: 04/13/22 17:10 Patient Disposition: Home, Self-Care Activity: as tolerated Diet: heart healthy Discharge Instructions: WOUND CARE TO THE RIGHT TOE: Apply silver gel to right 2nd toe wound DAILY and cover with gauze, wrap with Kerlex to keep the gauze in place. Take precautions to avoid falls. Rise slowly from a lying or sitting position. Pause before standing
--- NOTE | 2022-04-13 17:50 | PC.NURSE ---
Went over discharge instructions with Boni Flores brother and caregiver of Eduardo.
[2022-04-14 19:22] LABS: Platelet Antibody, Direct IgG NEGATIVE (NEGATIVE)
--- NOTE | 2022-04-22 10:06 | PC.NURSE ---
Plt Ab direct is negative. Dr. Harsh christian.
== END 2022-04-13 19:05 | disposition home or self-care (01) ==
LOC: ANHED 15:18 → ANH3MEDSUR 17:05
PROVIDERS: Internal Medicine Hematology & Oncology; Physician Assistant; Admitting Provider Internal Medicine; Emergency Provider Emergency Medicine; Visit Provider Internal Medicine
DX: S91.301A Unspecified open wound, right foot, initial encounter (principal); D69.6 Thrombocytopenia, unspecified; M79.89 Other specified soft tissue disorders; R46.0 Very low level of personal hygiene; I10 Essential (primary) hypertension; I25.10 Atherosclerotic heart disease of native coronary artery without angina pectoris; I25.2 Old myocardial infarction; G47.33 Obstructive sleep apnea (adult) (pediatric); F79 Unspecified intellectual disabilities; D69.3 Immune thrombocytopenic purpura; Z87.891 Personal history of nicotine dependence; X58.XXXA Exposure to other specified factors, initial encounter; Z20.822 Contact with and (suspected) exposure to COVID-19
CPT/HCPCS: 36415; 36430; 73620; 80048; 80053; 82607; 82746; 83735; 84443; 85025; 85027; 85055; 86023; 86140; 86850; 86900; 86901; 93923; 96365; 96366; 96367; 96375; 96376; 97161; 97165; 99285; A9270; C9803; G0378; J1459; J2270; J2930; J3370; J7050; P9034; U0003; U0005

== ENCOUNTER 2022-04-25 10:59 | Outpatient (CLI) | payer MEDICARE, MEDICAID, SELFPAY ==
--- NOTE | ~2022-04-25 | XR_ITS ---
EXAMINATION: XR ankle RT min 3V, XR foot RT min 3V DATE: 04/25/2022 12:30 INDICATION: Toe cellulitis at the right foot TECHNIQUE: 1. Anteroposterior, mortise, additional oblique and lateral view of the right ankle were obtained. 2. Dorsoplantar, two oblique and lateral views of the right foot were obtained. COMPARISON: None. FINDINGS: Hallux valgus. Alignment of the right foot and ankle is otherwise normal. No fracture. Polyarticular osteoarthritis, moderate severity at the tibiotalar joint and mild at the subtalar, first metatarsoph alangeal and multiple tarsometatarsal and interphalangeal joints. There is diffuse osteopenia which c omplicates assessment for cortical erosion particularly at the toes. On the supinated oblique view of the foot the cortex at the tuft of the fourth distal phalanx is indistinct and could not exclude ost eolysis although this is not appreciated on the dorsal plantar projection. No other lesions suspiciou s for osteomyelitis. Small plantar calcaneal spur. Mild soft tissue swelling over the dorsum of the f orefoot. No soft tissue gas or radiopaque foreign bodies. IMPRESSION: 1. Equivocal osteolysis with indistinct cortex at the tuft of the fourth distal phalanx on one obliqu e images but with intact appearing cortex on the dorsal plantar image. Osteomyelitis at this location is considered possible but less likely. Correlate with site of infection. If clinically indicated co uld consider either dedicated high-resolution smaller field of view images focused at the toes or MRI for further evaluation. 2. Polyarticular osteoarthritis, moderate at the right ankle and mild at multiple additional joints i n the foot. Reviewed, dictated and finalized at location A. IMPRESSION: 1. Equivocal osteolysis with indistinct cortex at the tuft of the fourth distal phalanx on one oblique images but with intact appearing cortex on the dorsal p lantar image. Osteomyelitis at this location is considered possible but less li david. Correlate with site of infection. If clinically indicated could consider either dedicated high-resolution smaller field of view images focused at the to es or MRI for further evaluation. 2. Polyarticular osteoarthritis, moderate at the right ankle and mild at multip le additional joints in the foot.
--- NOTE | ~2022-04-25 | XR_ITS ---
XR lumbar spine 2-3V DATE: 04/25/2022 12:30 INDICATION: Low back pain. TECHNIQUE: AP, lateral, coned lateral lumbosacral views COMPARISON: None FINDINGS: There is osteopenia. There is levoscoliosis of the thoracic spine and minimal dextro scoliosis of the lumbar spine. There is degenerative disease throughout the lumbar spine, severe at L1-2, mild at L2-3, moderate at L3-4, moderately severe at L4-5, severe at L5-S1. Minimal anterolisthesis at L3-4. No fracture or bone destruction or spondylolisthesis is noted otherwise. The lumbar pedicles are inta ct. The sacroiliac joints are unremarkable. IMPRESSION: Osteopenia Scoliosis Multilevel degenerative disc disease Reviewed, dictated and finalized at location B.
[2022-04-25 12:04] LABS: Hematocrit 44.3 % (42.0-52.0); Hemoglobin 14.6 g/dL (14.0-18.0); Immature Platelet Fraction Pct 8.6 % (0.9-11.2); Mean Corpuscular Hemoglobin 29.7 pg (26-34); Mean Corpuscular Volume 90.2 fl (80-100); Mean Platelet Volume 11.1 fl (7.4-10.4); Platelet Count Result 59 k/mm3 (150-375); Red Blood Count 4.91 M/mm3 (4.6-6.20); Red Cell Distribution Width 13.7 % (11.5-14.5); White Blood Count 19.9 K/mm3 (4.5-10.0)
[2022-04-25 12:12] LABS: Hemoglobin A1C 5.8 % (<5.7)
[2022-04-25 12:15] LABS: Alanine Aminotransferase 22 U/L (6-50); Albumin Level 3.5 g/dL (3.5-5.1); Alkaline Phosphatase 75 U/L (38-126); Anion Gap 2 mmol/L (8-16); Aspartate Amino Transferase 23 U/L (17-59); Bilirubin,Total 0.5 mg/dL (0.2-1.3); Blood Urea Nitrogen 28 mg/dL (9-20); Calcium 8.5 mg/dL (8.4-10.2); Carbon Dioxide 28 mmol/L (22-30); Chloride 103 mmol/L (98-107); Cholesterol 232 mg/dL (0-200); Estimated Glomerular Filt Rate > 60; Glucose 107 mg/dL (65-110); HDL Direct 37 mg/dL; Potassium 4.4 mmol/L (3.4-5.0); Sodium 133 mmol/L (137-145); Triglycerides 118 mg/dL (<150)
[2022-04-25 12:26] LABS: LDL Cholesterol Direct 166 mg/dL
[2022-04-25 12:35] LABS: Free T4 Free Thyroxine 1.35 ng/mL (0.78-2.19)
[2022-04-25 13:20] LABS: Folic Acid 6.4 ng/mL (2.76->20)
== END 2022-04-25 11:00 | disposition home or self-care (01) ==
LOC: ANHLAB 11:25
PROVIDERS: Visit Provider Emergency Medicine
DX: F41.9 Anxiety disorder, unspecified (principal); D69.6 Thrombocytopenia, unspecified; D72.829 Elevated white blood cell count, unspecified; L03.115 Cellulitis of right lower limb; I25.10 Atherosclerotic heart disease of native coronary artery without angina pectoris; E66.9 Obesity, unspecified; M85.88 Other specified disorders of bone density and structure, other site; M41.86 Other forms of scoliosis, lumbar region; M51.36 Other intervertebral disc degeneration, lumbar region; M19.071 Primary osteoarthritis, right ankle and foot; M89.571 Osteolysis, right ankle and foot
CPT/HCPCS: 36415; 72100; 73610; 73630; 80053; 80061; 82607; 82746; 83036; 84439; 84443; 85027; 85055

== ENCOUNTER 2022-04-26 09:50 | Outpatient (NON) | payer MEDICARE, MEDICAID, SELFPAY ==
[2022-04-26 11:07] LABS: Appearance Urine Clear (Clear); Bilirubin Urine Negative (Negative); Blood Urine Negative (Negative); Color Urine Yellow (Yellow); Glucose Urine UA Negative (Negative); Ketones Urine Negative (Negative); Leukocyte Esterase Ur Negative LEU/UL (NEGATIVE); Nitrate Urine Negative (Negative); Protein Urine Negative (Negative); Urobilinogen Urine 0.2 mg/dL (<2.0); pH Urine 5.5 (5.0-9.0)
[2022-04-26 11:11] LABS: Add Urine Microscopic? NO
[2022-04-26 11:13] LABS: Bacteria Urine Trace /hpf; Mucus Urine Rare /lpf; Squamous Epithelial Cell Urine Rare /hpf (Few); Uric Acid Crystals Urine Many /hpf
== END 2022-04-26 09:51 | disposition home or self-care (01) ==
PROVIDERS: Visit Provider Emergency Medicine
DX: F41.9 Anxiety disorder, unspecified (principal); I25.10 Atherosclerotic heart disease of native coronary artery without angina pectoris; E66.9 Obesity, unspecified; D72.829 Elevated white blood cell count, unspecified; D69.6 Thrombocytopenia, unspecified
CPT/HCPCS: 81003

== ENCOUNTER 2022-04-28 16:28 | Emergency (ER) | payer MEDICARE, MEDICAID, SELFPAY ==
--- NOTE | ~2022-04-28 | XR_ITS ---
EXAM: XR toe 2nd RT min 2V DATE: 04/28/2022 18:29 HISTORY: deep wound infection Rt 2nd toe . COMPARISON: None available. FINDINGS: Decreased mineralization. No fracture or dislocation. Cortical loss along the proximal and lateral aspect of the second distal phalange. No periosteal change. Overlying soft tissue irregulari ty. IMPRESSION: Possible osteoarthritis involving the proximal and lateral aspect of the distal right sec ond phalange. Reviewed, dictated and finalized at location K. IMPRESSION: Possible osteoarthritis involving the proximal and lateral aspect o f the distal right second phalange.
--- NOTE | ~2022-04-28 | XR_ITS ---
EXAM: XR toe 3rd LT min 2V DATE: 04/28/2022 18:31 HISTORY: wound Lt 3rd toe . COMPARISON: None available. FINDINGS: Decreased mineralization. No fracture or dislocation. No lytic or blastic lesion. Scattere d mild degenerative change. No erosion or periosteal change. Soft tissues within normal limits. IMPRESSION: No radiographic evidence of osteomyelitis in the left third toe. Reviewed, dictated and finalized at location K.
[2022-04-28 16:33] VITALS: BP 124/69; PULSE 79; RESP 14; TEMP 36.8; O2SAT 97
--- NOTE | 2022-04-28 17:53 | ED.RECABL ---
HPI - Recheck/Abnormal Lab/Rx General Chief Complaint: Recheck/Abnormal Lab/Rx Stated Complaint: abnormal labs Time Seen by Provider: 04/28/22 17:27 Source: patient and family Mode of arrival: ambulatory Limitations: other (poor historian) History of Present Illness HPI narrative: This is a 76 year old male that presents to the ER for abnormal labs. Reports he went to see his primary doctor on Thursday and had some blood work done. He was called today as his platelets were abnormal. He was instructed to come to the ER. He also has an open wound on the right 2nd toe as well as a wound on the left third toe. They have been caring for his wounds at home. His brother helps him manage the wound. Denies fever, hematuria, melena, or hematochezia. Related Data Allergies Allergy/AdvReac Type Severity Reaction Status Date / Time No Known Allergies Allergy Verified 08/31/17 15:07 Review of Systems Review of Systems: CONSTITUTIONAL: Denies fever SKIN: Reports rash NEUROLOGIC: Denies numbness All systems reviewed & are unremarkable except as noted in HPI and below FOR[facility]LY [facility] Past Medical History Medical History (Updated 04/30/22 @ 00:00 by [facility]) Anxiety Coronary artery disease STEMI in fall 2018 status post PCI to the LAD. Hydrocephalus Hyperlipidemia Noted in previous records. Not currently on medication. Hypertension Noted in previous records. Not currently on medication. Intellectual disability Obstructive sleep apnea Noted in previous records. He does not use a CPAP. Surgical History Surgical History (Updated 04/11/22 @ 16:31 by Tomasz Darden MD) History of appendectomy History of cardiac catheterization (2018) Fall 2018: PCI to the LAD done at [facility]. 07/11/2019: Balloon angioplasty to the distal terminal LAD. History of esophagogastroduodenoscopy Family History Family History (Updated 04/10/22 @ 21:29 by Karina Campbell PA-C) Other Diabetes mellitus Social History Social History (Updated 04/10/22 @ 21:33 by Karina Campbell PA-C) Social History: Surrogate decision maker: Boni Flores, alyshaer. Code status: Full code. Smoking status: Former smoker Alcohol intake: never Substance use: never Additional living arrangements comments: The patient lives with his brother in [place]. Spiritual care concerns: No Exam Narrative: GENERAL: Well-appearing, well-nourished, and in no acute distress. HEAD: Normocephalic, atraumatic. EYES: EOMI. ENT: Nares clear, no rhinorrhea or epistaxis. Mucous membranes moist. Oropharynx without tonsillar hypertrophy exudate or other lesions. CHEST: No respiratory distress. HEART: Regular rate. Normal peripheral pulses. EXTREMITIES: Normal range of motion. Right 2nd toe with mild redness and edema. There is an open wound at the base of the 2nd proximal phalanx in which the tendon is exposed. No abnormal drainage noted. There is an ulceration starting on the left 3rd toe without surrounding erythema or edema SKIN: Warm, dry. Fine, petechial rash NEURO: No focal deficits. Alert and oriented x3. PSYCH: Normal mood and affect Course Consultations Consultation #1: Spoke with Dr. Smith about patient and workup. Agrees that his wound sounds chronic in nature without any change, and no concerning laboratory findings today. Is to follow up with Dr. Dixon as originally planned in his last admission for further management Date: 04/28/22 Time: 20:02 Vital Signs Vital signs: Vital Signs Temperature 98.3 F 04/28/22 16:33 Pulse Rate 79 04/28/22 16:33 Respiratory Rate 14 04/28/22 16:33 Blood Pressure 124/69 04/28/22 16:33 Pulse Oximetry 97 04/28/22 16:33 Oxygen Delivery Room Air 04/28/22 16:33 Temperature 98.3 F 04/28/22 16:33 Pulse Rate 84 04/28/22 23:04 Respiratory Rate 16 04/28/22 23:04 Blood Pressure 140/86 04/28/22 23:04 Pulse Oximetry 98 04/28/22 23:04 Oxygen Delivery Room Air 04/28/22 16:33
[2022-04-28 18:28] LABS: Hematocrit 49.4 % (42.0-52.0); Hemoglobin 14.9 g/dL (14.0-18.0); Immature Platelet Fraction Pct 4.7 % (0.9-11.2); Mean Corpuscular HGB Conc 30.2 g/dl (32-36); Mean Corpuscular Hemoglobin 29.7 pg (26-34); Mean Corpuscular Volume 98.4 fl (80-100); Mean Platelet Volume 11.4 fl (7.4-10.4); Platelet Count Result 76 k/mm3 (150-375); Red Blood Count 5.02 M/mm3 (4.6-6.20); Red Cell Distribution Width 14.5 % (11.5-14.5); White Blood Count 20.8 K/mm3 (4.5-10.0)
[2022-04-28 18:39] LABS: INR 1.1; Prothrombin Time 13.8 Seconds (11.1-14.7)
[2022-04-28 18:40] LABS: Lactic Acid Reflex 2.3 mmol/L (0.7-2.0); Partial Thromboplastin Time 22.6 SECONDS (22.3-36.8)
[2022-04-28 18:42] LABS: Alanine Aminotransferase 24 U/L (6-50); Albumin Level 3.9 g/dL (3.5-5.1); Alkaline Phosphatase 79 U/L (38-126); Anion Gap 6 mmol/L (8-16); Aspartate Amino Transferase 19 U/L (17-59); Bilirubin,Total 0.6 mg/dL (0.2-1.3); Blood Urea Nitrogen 31 mg/dL (9-20); CRP < 0.5 mg/dL (<1.0); Calcium 8.4 mg/dL (8.4-10.2); Carbon Dioxide 29 mmol/L (22-30); Chloride 105 mmol/L (98-107); Estimated Glomerular Filt Rate > 60; Glucose 136 mg/dL (65-110); Potassium 4.4 mmol/L (3.4-5.0); Sodium 140 mmol/L (137-145)
[2022-04-28 18:50] LABS: Lymphocytes Absolute Manual 0.83 K/mm3 (1.1-4.5); Monocytes Percent Manual 1 % (3-9); Neutrophils Percent Manual 95 % (46-73); Platelet Estimate Decreased (Adequate); Total Cells Counted 100
[2022-04-28 18:51] LABS: Hypochromasia 1+ (NORMAL)
[2022-04-28] MEDS: SODIUM CHLORIDE 0.9% IV 500 ML 999 ML IV CONT ×3 (19:11→21:30)
[2022-04-28 19:13] LABS: Erythrocyte Sedimentation Rate 1 mm/hr (0-20)
[2022-04-28 20:29] VITALS: BP 128/76; PULSE 80; RESP 16; O2SAT 97
[2022-04-28 21:26] LABS: Reflex Lactic Acid Yes or No Add Lactic
[2022-04-28 22:24] LABS: Lactic Acid 1.5 mmol/L (0.7-2.0)
[2022-04-28 23:04] VITALS: BP 140/86; PULSE 84; RESP 16; O2SAT 98
== END 2022-04-29 00:22 | disposition home or self-care (01) ==
PROVIDERS: Physician Assistant; Emergency Provider Emergency Medicine; PCP Emergency Medicine
DX: D69.6 Thrombocytopenia, unspecified (principal); L98.8 Other specified disorders of the skin and subcutaneous tissue; I25.2 Old myocardial infarction; I25.10 Atherosclerotic heart disease of native coronary artery without angina pectoris; G47.33 Obstructive sleep apnea (adult) (pediatric); F79 Unspecified intellectual disabilities; Z87.891 Personal history of nicotine dependence; R93.6 Abnormal findings on diagnostic imaging of limbs
CPT/HCPCS: 36415; 73660; 80053; 83605; 85025; 85055; 85610; 85652; 85730; 86140; 87040; 87070; 87205; 99283; J7040

== ENCOUNTER 2022-05-17 05:52 | Observation (INO) | payer MEDICARE, MEDICAID, SELFPAY ==
[2022-05-17] VITALS (18 sets, daily range): BP systolic 109–137; BP diastolic 54–81; PULSE 70–102; RESP 18–24; TEMP 35.9–37; O2SAT 94–99; BMI 29.9
--- NOTE | ~2022-05-17 | XR_ITS ---
EXAMINATION: XR chest 1V portable INDICATION: Weakness TECHNIQUE: Portable AP chest at 0612 hours COMPARISON: 10/13/2017 FINDINGS: The lungs are free of acute opacities. No pleural effusion or pneumothorax. The cardiomedia stinal silhouette is normal. IMPRESSION: 1. No acute cardiopulmonary abnormality. Reviewed, dictated and finalized at location A.
--- NOTE | 2022-05-17 05:55 | ECG_ITS ---
Measurements Intervals [place] Rate: 101 P: 31 AR: 133 QRS: 9 QRSD: 94 T: 11 QT: 334 QTc: 433 Interpretive Statements SINUS TACHYCARDIA WITH OCCASIONAL SUPRAVENTRICULAR PREMATURE COMPLEXES BASELINE ARTIFACT BORDERLINE ECG NO PREVIOUS ECG AVAILABLE FOR COMPARISON Electronically Signed On 05-17-2022 13:28:15 CDT by Jovi Abreu M.D.
[2022-05-17 06:08] LABS: Basophils Percent Auto 0.2 % (0.2-1.2); Eosinophils Percent Auto 0.4 % (0-4.4); Hematocrit 43.8 % (42.0-52.0); Hemoglobin 13.8 g/dL (14.0-18.0); Immature Granulocyte Absolute 0.22 K/mm3 (0.00-0.031); Lymphocytes Absolute Auto 0.62 K/mm3 (0.9-3.2); Lymphocytes Percent Auto 5.5 % (18.3-44.2); Mean Corpuscular HGB Conc 31.5 g/dl (32-36); Mean Corpuscular Hemoglobin 29.1 pg (26-34); Mean Corpuscular Volume 92.4 fl (80-100); Mean Platelet Volume 9.9 fl (7.4-10.4); Monocytes Absolute Auto 0.8 K/mm3 (0.1-0.6); Monocytes Percent Auto 6.7 % (2.6-8.5); Neutrophils Absolute Auto 9.6 K/mm3 (1.3-6.7); Neutrophils Percent Auto 85.2 % (45.5-73.1); Platelet Count Result 125 k/mm3 (150-375); Red Blood Count 4.74 M/mm3 (4.6-6.20); Red Cell Distribution Width 14.6 % (11.5-14.5); White Blood Count 11.2 K/mm3 (4.5-10.0)
[2022-05-17 06:18] LABS: Lactic Acid Reflex 2.6 mmol/L (0.7-2.0)
[2022-05-17 06:19] LABS: Alanine Aminotransferase 29 U/L (6-50); Albumin Level 3.4 g/dL (3.5-5.1); Alkaline Phosphatase 76 U/L (38-126); Anion Gap 5 mmol/L (8-16); Aspartate Amino Transferase 28 U/L (17-59); Bilirubin,Total 0.8 mg/dL (0.2-1.3); Blood Urea Nitrogen 22 mg/dL (9-20); Carbon Dioxide 31 mmol/L (22-30); Chloride 100 mmol/L (98-107); Estimated Glomerular Filt Rate 59; Glucose 194 mg/dL (65-110); Potassium 4.1 mmol/L (3.4-5.0); Sodium 136 mmol/L (137-145)
--- NOTE | 2022-05-17 06:28 | PC.NURSE ---
When catheterizing this patient this RN found the patient in 2 depends, 3 pairs of underwear and 2 pairs of pants all soaked through with new and old urine. Patient states I have no help. Patient also wearing 2 shirts because he states he cannot do it. Patient groin area found red, swollen, bleeding, covered in yeast and pus. Patient is in a lot pain and was cleaned up. Patient also states he has not taken a shower in a few weeks. Patient scalp is yellow, flaky, and full of grease.
[2022-05-17 06:37] LABS: Troponin I 0.048 ng/mL (0.000-0.034)
[2022-05-17 06:44] LABS: Appearance Urine Clear (Clear); Bilirubin Urine Negative (Negative); Blood Urine 1+ (Negative); Color Urine Yellow (Yellow); Glucose Urine UA Negative (Negative); Ketones Urine Negative (Negative); Leukocyte Esterase Ur Negative LEU/UL (Negative); Nitrate Urine Negative (Negative); Protein Urine 1+ mg/dL (Negative)
--- NOTE | 2022-05-17 06:47 | ED.GENADULT ---
HPI - General Adult General Chief complaint: Weakness Stated complaint: GEN WEAKNESS Time Seen by Provider: 05/17/22 05:55 History of Present Illness HPI narrative: 76-year-old male brought in by EMS secondary to generalized weakness. Patient lives in an apartment and apparently his roommate called for them to come and curing pickling packer the patient. They found him he was sitting on the bathroom floor. Patient is a very poor historian. He is not voicing any specific complaints. He denies any chest, abdominal pain. He denies any chills or fevers. Patient is wearing 2 depends and 3 pairs of shorts and 2 pants that are all saturated with urine. It is obvious that this patient is not have the capability of taking care of himself. Related Data Allergies Allergy/AdvReac Type Severity Reaction Status Date / Time No Known Allergies Allergy Verified 08/31/17 15:07 Review of Systems Review of Systems: ROS unobtainable: Yes unobtainable due to mental status PMFSH Past Medical History Medical History Anxiety Coronary artery disease STEMI in fall 2018 status post PCI to the LAD. Hydrocephalus Hyperlipidemia Noted in previous records. Not currently on medication. Hypertension Noted in previous records. Not currently on medication. Intellectual disability Obstructive sleep apnea Noted in previous records. He does not use a CPAP. Surgical History Surgical History History of appendectomy History of cardiac catheterization (2018) Fall 2018: PCI to the LAD done at [place]. 07/11/2019: Balloon angioplasty to the distal terminal LAD. History of esophagogastroduodenoscopy Family History Family History Other Diabetes mellitus Social History Social History Social History: Surrogate decision maker: Boni Flores, brother. Code status: Full code. Smoking status: Former smoker Alcohol intake: never Substance use: never Additional living arrangements comments: The patient lives with his brother in [place]. Spiritual care concerns: No Exam Narrative: APPEARANCE: Well appearing, no pain or distress, well-nourished. Patient is very unkept. Head Normocephalic and atraumatic. EYES: PERRLA/EOMI, conjunctivae clear. NOSE: Normal with no drainage EARS:TMS clear with Cheek, with good light reflex. THROAT: Pharynx clear, no exudate. NECK: Supple. No adenopathy, no masses. RESPIRATORY: Airway patent, respirations nonlabored. Clear to auscultation bilaterally, no rales, rhonchi, wheezing. CARDIOVASCULAR: Regular rate and rhythm without murmurs, rubs, or gallops. ABDOMINAL: Soft, nontender, nondistended, no hepatosplenomegaly Musculoskeletal: Moves all extremities. Strength/ROM intact, No edema, No calf tenderness. NEURO: Alert. Cranial nerves II through XII intact. Normal gait. Good coordination. Nonfocal examination. SKIN:: Warm, dry. Appears to be pale in color. PSYCHIATRIC: Normal affect/mood, normal interaction but not answering questions appropriately. He does know that he is here in the emergency department. GENITAL: Excoriations and erythema noted to the scrotal region Course Vital Signs Vital signs: Vital Signs Temperature 98.6 F 05/17/22 05:52 Pulse Rate 98 05/17/22 05:52 Respiratory Rate 18 05/17/22 05:52 Blood Pressure 132/81 05/17/22 05:52 Pulse Oximetry 96 05/17/22 05:52 Oxygen Delivery Room Air 05/17/22 05:52 Temperature 98.6 F 05/17/22 05:52 Pulse Rate 96 05/17/22 05:59 Respiratory Rate 18 05/17/22 05:52 Blood Pressure 132/81 05/17/22 05:52 Pulse Oximetry 96 05/17/22 05:52 Oxygen Delivery Room Air 05/17/22 05:52 Medical Decision Making [facility] Narrative Medical decision making narrative: Patient is extremely poor historian. In reviewing the
[2022-05-17 06:52] LABS: Mucus Urine Rare /lpf; Squamous Epithelial Cell Urine Rare /hpf (Few); WBC Urine 0-3 /hpf
[2022-05-17 06:53] LABS: Add Urine Microscopic? YES
[2022-05-17 06:59] LABS: SARS-CoV-2 RNA PCR Negative
[2022-05-17] MEDS: SODIUM CHLORIDE 0.9% IV 1,000 ML 999 ML IV CONT (07:03)
--- NOTE | 2022-05-17 08:04 | PC.NURSE ---
Many attempts made to draw blood cultures, called lab/ Consulting Analyst for assistance.
--- NOTE | 2022-05-17 08:23 | ADMGEN ---
This patient, Eduardo Flores, was admitted to IMU Room 201-01. Patient/family oriented to hospital policies and general routines including ID bracelet, bed and alarms, visiting hours, pain management, procedures, bathroom and other care routines, personal items, smoking policy, room service/diet, and visiting hours. Information on how to activate the Rapid Response Team has been discussed. Patient/Family are encouraged to report perceived risks to care and to ask questions if they do not understand what they are told or what they should do.
[2022-05-17 08:51] LABS: Lactic Acid Reflex 1.4 mmol/L (0.7-2.0)
[2022-05-17 09:05] LABS: Reflex Lactic Acid Yes or No Add Lactic
[2022-05-17 10:51] LABS: Lactic Acid 1.1 mmol/L (0.7-2.0)
--- NOTE | 2022-05-17 11:31 | PM.IMHP ---
H&P: HPI History of Present Illness Date/Time: 05/17/22 11:31 Chief Complaint: 76-year-old male brought in by EMS secondary to generalized weakness.? Patient lives in an apartment and apparently his roommate called for them to come and chart picker the patient.? They found him he was sitting on the bathroom floor.? Patient is a very poor historian.? He is not voicing any specific complaints.? He denies any chest, abdominal pain.? He denies any chills or fevers.? Patient is wearing 2 depends and 3 pairs of shorts and 2 pants that are all saturated with urine.? It is obvious that this patient is not have the capability of taking care of himself. Review of Systems Review of Systems: 10 point ROS negative except as stated in HPI / Subjective PMFSH Past Medical History Medical History Anxiety Coronary artery disease STEMI in fall 2018 status post PCI to the LAD. Hydrocephalus Hyperlipidemia Noted in previous records. Not currently on medication. Hypertension Noted in previous records. Not currently on medication. Intellectual disability Obstructive sleep apnea Noted in previous records. He does not use a CPAP. Surgical History Surgical History History of appendectomy History of cardiac catheterization (2018) Fall 2018: PCI to the LAD done at [place]. 07/11/2019: Balloon angioplasty to the distal terminal LAD. History of esophagogastroduodenoscopy Family History Family History Other Diabetes mellitus Social History Social History Social History: Surrogate decision maker: Boni Flores, brother. Code status: Full code. Smoking status: Never smoker Alcohol intake: never Substance use: never Substance use type: does not use Additional living arrangements comments: The patient lives with his brother in [place]. Spiritual care concerns: No Meds Home Medications and Allergies Home Medications Medication Instructions Recorded Confirmed Type No Home Medications 05/17/22 05/17/22 History Allergies Allergy/AdvReac Type Severity Reaction Status Date / Time No Known Allergies Allergy Verified 08/31/17 15:07 Vital Signs Vital Signs - 24 hr 05/17/22 05:52 05/17/22 05:59 05/17/22 07:23 Temperature 98.6 F Pulse Rate 98 96 93 Respiratory Rate 18 18 Blood Pressure 132/81 109/66 Pulse Oximetry 96 99 Oxygen Delivery Room Air 05/17/22 07:43 05/17/22 07:55 05/17/22 08:54 Temperature 98.2 F Pulse Rate 88 85 88 Respiratory Rate 20 20 24 H Blood Pressure 118/65 120/64 113/55 L Pulse Oximetry 96 95 94 Oxygen Delivery 05/17/22 09:06 05/17/22 10:00 05/17/22 08:36 Temperature Pulse Rate 86 85 Respiratory Rate Blood Pressure Pulse Oximetry Oxygen Delivery Room Air H&P: Results Labs Labs: Short CBC 05/17/22 Range/Units 06:02 WBC 11.2 H (4.5-10.0) K/mm3 Hgb 13.8 L (14.0-18.0) g/dL Hct 43.8 (42.0-52.0) % Plt Count 125 L D (150-375) k/mm3 BMP 05/17/22 06:02 Sodium 136 L Potassium 4.1 Chloride 100 Carbon Dioxide 31 H BUN 22 H Creatinine 1.20 Glucose 194 H Calcium 8.0 L Cardiac Enzymes 05/17/22 Range/Units 06:02 Troponin I 0.048 H* (0.000-0.034) ng/mL Liver Function 05/17/22 Range/Units 06:02 Total Bilirubin 0.8 (0.2-1.3) mg/dL AST 28 (17-59) U/L ALT 29 (6-50) U/L Alkaline Phosphatase 76 (38-126) U/L Albumin 3.4 L (3.5-5.1) g/dL Urine 05/17/22 Range/Units 06:23 Urine Color Yellow (Yellow) Urine Appearance Clear (Clear) Urine pH 6.0 (5.0-9.0) Ur Specific [place] 1.020 (1.001-1.035) Urine Protein 1+ H (Negative) mg/dL Urine Glucose (UA) Negative (Negative) mg/dL Assessment and Plan Assessment and plan (
[2022-05-17 15:43] LABS: Troponin I 0.059 ng/mL (0.000-0.034)
[2022-05-17] MEDS: TOLNAFTATE 1% POWDER 45 GM BTL 1 APPLIC TOPICAL (21:51)
[2022-05-18] VITALS (8 sets, daily range): BP systolic 105–133; BP diastolic 48–78; PULSE 66–94; RESP 17–24; TEMP 36.4–37.1; O2SAT 90–99
[2022-05-18 07:11] LABS: Anion Gap 4 mmol/L (8-16); Blood Urea Nitrogen 13 mg/dL (9-20); Calcium 7.3 mg/dL (8.4-10.2); Carbon Dioxide 28 mmol/L (22-30); Chloride 104 mmol/L (98-107); Estimated CRCL calculation 59 ml/min; Estimated Glomerular Filt Rate > 60; Glucose 123 mg/dL (65-110); Potassium 3.3 mmol/L (3.4-5.0); Sodium 136 mmol/L (137-145)
[2022-05-18 07:23] LABS: Troponin I 0.035 ng/mL (0.000-0.034)
[2022-05-18] MEDS: TOLNAFTATE 1% POWDER 45 GM BTL 1 APPLIC TOPICAL ×2 (10:36→20:07)
[2022-05-18] MEDS: POTASSIUM CHLORIDE 20 MEQ PACKET (FOR LIQUID) 40 MEQ PO (10:36)
--- NOTE | 2022-05-18 11:07 | PM.IMPN ---
Progress Note: A&P Assessment and Plan (1) Generalized weakness: Code(s): R53.1 - Weakness Status: Acute Assessment and Plan: Will have PT OT evaluate the patient. Will likely need placement. (2) Elevated lactic acid level: Code(s): R79.89 - Other specified abnormal findings of blood chemistry Status: Acute Assessment and Plan: Resolved (3) Anxiety: Code(s): F41.9 - Anxiety disorder, unspecified Status: Acute Assessment and Plan: Chronic (4) Hyperlipidemia: Code(s): E78.5 - Hyperlipidemia, unspecified Status: Acute Assessment and Plan: Chronic (5) Hypertension: Code(s): I10 - Essential (primary) hypertension Status: Acute Assessment and Plan: Monitor blood pressure. No home meds listed in the system. Need to get home med information. (6) Obstructive sleep apnea: Code(s): G47.33 - Obstructive sleep apnea (adult) (pediatric) Status: Acute Assessment and Plan: Chronic (7) Dehydration: Code(s): E86.0 - Dehydration Status: Acute Assessment and Plan: Continue IV fluids. Improved. Monitor labs Subjective Date/time seen: 05/18/22 11:07 No complaints Exam Narrative: General: alert and oriented Psych: appropriate mood nad affect Eyes: PERRLA Neck: Trachea midline, no new lesions Skin: no changes Lungs: CTA Cardiac: Normal S1,S2, no MGR ABD: soft, nd, nt, nbs Ext: no new lesions, no cce Vasc: Pulses intact Objective Data Vital Signs Vital Signs: Vital Signs - 24 hr 05/17/22 12:11 05/17/22 12:28 05/17/22 12:00 Temperature 96.7 F L Pulse Rate 70 83 Respiratory Rate 18 Blood Pressure 126/72 Pulse Oximetry 96 Oxygen Delivery Room Air 05/17/22 14:00 05/17/22 14:58 05/17/22 16:00 Temperature Pulse Rate 80 Respiratory Rate Blood Pressure Pulse Oximetry Oxygen Delivery Room Air Room Air 05/17/22 16:00 05/17/22 16:50 05/17/22 18:00 Temperature 98.2 F Pulse Rate 92 91 95 Respiratory Rate 21 H Blood Pressure 120/54 L Pulse Oximetry 96 Oxygen Delivery 05/17/22 20:00 05/17/22 20:00 05/17/22 20:00 Temperature 97.3 F L Pulse Rate 96 96 98 Respiratory Rate 20 20 Blood Pressure 133/54 L Pulse Oximetry 99 99 Oxygen Delivery Room Air 05/17/22 22:00 05/17/22 23:11 05/17/22 23:17 Temperature 98.1 F Pulse Rate 90 102 H 102 H Respiratory Rate 20 20 Blood Pressure 137/66 Pulse Oximetry 99 99 Oxygen Delivery Room Air 05/18/22 00:00 05/18/22 02:00 05/18/22 04:00 Temperature Pulse Rate 89 88 91 Respiratory Rate Blood Pressure Pulse Oximetry Oxygen Delivery 05/18/22 04:00 05/18/22 03:30 05/18/22 06:00 Temperature 97.5 F L Pulse Rate 90 90 89 Respiratory Rate 18 18 Blood Pressure 133/78 Pulse Oximetry 99 99 Oxygen Delivery Room Air 05/18/22 08:00 05/18/22 08:00 05/18/22 08:50 Temperature 98.7 F Pulse Rate 92 88 Respiratory Rate 20 Blood Pressure 125/62 Pulse Oximetry 90 Oxygen Delivery Room Air Intake/Output Intake/Output: Intake & Output 05/15/22 05/16/22 05/17/22 05/18/22 23:59 23:59 23:59 23:59 Intake Total 1590 200 Output Total 400 350 Balance 1190 -150 Meds/Results Medications: Active Medications Generic Name Dose Route Start Last Admin Trade Name Freq PRN Reason Stop Dose Admin Tolnaftate 1 applic 05/17/22 21:00 05/18/22 10:36 Tolnaftate 1% Powder 45 Gm Btl TOPICAL 1 applic Q12HR MARIEL Administration Radiology Results: ITS Impressions Chest X-Ray 05/17/22 08:55 IMPRESSION: 1. No acute cardiopulmonary abnormality. Labs Labs: Laboratory Results - last 24 hr 05/17/22 05/18/22 05/18/22 14:53 06:47 06:47 Sodium 136 L Potassium 3.3 L Chloride 104 Carbon Dioxide 28 Anion Gap 4 L BUN 13 D Creatinine 0.90 Estim Creat Clear Calc 59 Estimated G
--- NOTE | 2022-05-18 14:58 | PC.NURSE ---
This patient, Eduardo Flores, was transferred to [facility] on 05/18/22 at 1457. Personal belongings sent with patient. Report given to Joycelyn REDDY. Appropriate documentation sent with patient.
--- NOTE | 2022-05-18 15:06 | PC.NURSE ---
This patient, Eduardo Flores, was received from [[phone] to [facility] [phone] ] on 05/18/22 at 1500. Patient/family oriented to unit policies and routines
[2022-05-19 06:00] VITALS: BP 108/58; PULSE 83; RESP 17; TEMP 36.8; O2SAT 95
[2022-05-19] MEDS: TOLNAFTATE 1% POWDER 45 GM BTL 1 APPLIC TOPICAL (08:27)
--- NOTE | 2022-05-19 09:04 | PCOTNOTE ---
Attempted to see patient this am, however patient refused.
--- NOTE | 2022-05-19 10:21 | PM.DS ---
DS: Admitting Diagnosis Discharge Date May 19, 2022 Admitting Diagnosis Dehydration DS: Discharge Diagnosis Discharge Diagnosis (1) Generalized weakness: Code(s): R53.1 - Weakness Status: Acute Assessment and Plan: Will have PT OT evaluate the patient. Will likely need placement. (2) Elevated lactic acid level: Code(s): R79.89 - Other specified abnormal findings of blood chemistry Status: Acute Assessment and Plan: Resolved (3) Anxiety: Code(s): F41.9 - Anxiety disorder, unspecified Status: Acute Assessment and Plan: Chronic (4) Hyperlipidemia: Code(s): E78.5 - Hyperlipidemia, unspecified Status: Acute Assessment and Plan: Chronic (5) Hypertension: Code(s): I10 - Essential (primary) hypertension Status: Acute Assessment and Plan: Monitor blood pressure. No home meds listed in the system. Need to get home med information. (6) Obstructive sleep apnea: Code(s): G47.33 - Obstructive sleep apnea (adult) (pediatric) Status: Acute Assessment and Plan: Chronic (7) Dehydration: Code(s): E86.0 - Dehydration Status: Acute Assessment and Plan: Continue IV fluids. Improved. Monitor labs DS: Summary Hospital Course Hospital Course: Patient was admitted fall and weakness. He was found to be dehydrated. After IV fluids all of his laboratory values improved. He will need to be set up with ongoing physical therapy on discharge. Otherwise patient is stable can be discharged Time Spent with Patient Time attestation: Total time spent providing and/or coordinating discharge services: Exam Narrative: General: alert and oriented Psych: appropriate mood nad affect Eyes: PERRLA Neck: Trachea midline, no new lesions Skin: no changes Lungs: CTA Cardiac: Normal S1,S2, no MGR ABD: soft, nd, nt, nbs Ext: no new lesions, no cce Vasc: Pulses intact DS: Data Data Completed and Pending Labs on day of discharge: Preliminary micro results at discharge 05/17/22 08:22 Blood Culture - Preliminary Blood 05/17/22 08:22 Blood Culture - Preliminary Blood Discharge Plan Discharge Attending physician on discharge: Ilya Maciel Discharging Clinician: Ilya Maciel Patient Disposition: SNF Activity: no preference Diet: as tolerated Patient Instructions: Antibiotic Form, Sepsis (GEN), High Troponin Levels (GEN) Stand Alone Forms: General Discharge Information Discharge Medications: No Action No Home Medications Date of admission: 05/17/22 06:43 Primary Care Provider: Manjeet Fernandez Admitting Provider: Nita Pratt V. Attending physician on admission: Nita Pratt V. Condition: Stable
[2022-05-19 14:00] VITALS: BP 112/65; PULSE 85; RESP 18; TEMP 37.4; O2SAT 100
[2022-05-19 15:07] LABS: EDCOVIDSCREEN Negative (Negative)
== END 2022-05-19 16:25 ==
LOC: ANHED 06:46 → ANHIMU 08:32 → ANH3MEDSUR 05-19 10:21 → ANHIMU 05-21 10:57
PROVIDERS: Admitting Provider Internal Medicine; Emergency Provider Emergency Medicine; PCP Emergency Medicine; Visit Provider Chiropractor
DX: R53.1 Weakness (principal); R74.02 Elevation of levels of lactic acid dehydrogenase [LDH]; F41.9 Anxiety disorder, unspecified; I25.10 Atherosclerotic heart disease of native coronary artery without angina pectoris; E78.5 Hyperlipidemia, unspecified; I10 Essential (primary) hypertension; Z95.5 Presence of coronary angioplasty implant and graft; E86.0 Dehydration; G47.33 Obstructive sleep apnea (adult) (pediatric); G91.9 Hydrocephalus, unspecified; F79 Unspecified intellectual disabilities; R77.8 Other specified abnormalities of plasma proteins; I25.2 Old myocardial infarction; R00.0 Tachycardia, unspecified; I49.1 Atrial premature depolarization; L53.9 Erythematous condition, unspecified; N49.2 Inflammatory disorders of scrotum; Z20.822 Contact with and (suspected) exposure to COVID-19; Z79.891 Long term (current) use of opiate analgesic; Z79.52 Long term (current) use of systemic steroids; Z79.899 Other long term (current) drug therapy
CPT/HCPCS: 36415; 51701; 71045; 80048; 80053; 81001; 83605; 84484; 85025; 87040; 87426; 93005; 96361; 96365; 97116; 97161; 97165; 97530; 99285; A9270; C9803; G0378; J0696; J7030; U0003; U0005

== ENCOUNTER 2024-03-06 05:48 | Inpatient (IN) | payer MEDICARE, MEDICAID, SELFPAY ==
[2024-03-06] VITALS (14 sets, daily range): BP systolic 108–145; BP diastolic 52–69; PULSE 71–88; RESP 16–30; TEMP 36.1–36.9; O2SAT 91–100
--- NOTE | ~2024-03-06 | XR_ITS ---
XR chest 1V portable 03/06/2024 06:23 Indication: Weakness. Procedure: AP portable chest Comparison: Comparison to multiple prior studies sequentially, with oldest reviewed study dated 05/2015. Findings: Heart size normal. Left basilar atelectasis. Right lung clear. No significant effusion or p neumothorax. No acute osseous abnormality. Impression: 1: Left basilar atelectasis. Reviewed, dictated and finalized at location B. Impression: 1: Left basilar atelectasis.
--- NOTE | ~2024-03-06 | CT_ITS ---
EXAMINATION: CT brain wo con DATE: 03/06/2024 08:18 INDICATION: Status post fall. TECHNIQUE: Computed tomography (CT) of the head was performed without intravenous contrast. The dose- length product was 1135.00 mGy-cm. Automated exposure control and iterative reconstruction technique were employed. COMPARISON: CT dated 10/13/2017 FINDINGS: No acute intracranial hemorrhage, infarction, mass or mass effect. No ventriculomegaly or m idline shift. There are scattered moderate periventricular and subcortical white matter changes, most likely related to small vessel ischemic disease (microangiopathy). There is a small mucous retention cyst of the right maxillary sinus. No acute infarction, hemorrhage or mass. IMPRESSION: 1. No acute intracranial abnormality. 2: Chronic age-related findings. Reviewed, dictated and finalized at location B.
--- NOTE | 2024-03-06 05:55 | ECG_ITS ---
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 Measurements Intervals [place] Rate: 87 P: 38 IN: 144 QRS: 23 QRSD: 101 T: 45 QT: 351 QTc: 424 Interpretive Statements SINUS RHYTHM NONSPECIFIC T-WAVE ABNORMALITY No previous ECG available for comparison Electronically Signed On 03-06-2024 12:09:05 CDT by Gautam Su M.D.
[2024-03-06 06:32] LABS: Basophils Percent Auto 0.2 % (0.2-1.2); Immature Granulocyte Percent A 0.5 % (0-0.5); Immature Platelet Fraction Pct 3.1 % (0.9-11.2); Lymphocytes Absolute Auto 0.32 K/mm3 (0.9-3.2); Lymphocytes Percent Auto 1.7 % (18.3-44.2); Mean Corpuscular HGB Conc 33.3 g/dl (32-36); Mean Corpuscular Hemoglobin 29.8 pg (26-34); Mean Corpuscular Volume 89.3 fl (80-100); Mean Platelet Volume 9.7 fl (7.4-10.4); Monocytes Absolute Auto 0.6 K/mm3 (0.1-0.6); Monocytes Percent Auto 3.3 % (2.6-8.5); Neutrophils Absolute Auto 17.7 K/mm3 (1.3-6.7); Neutrophils Percent Auto 94.3 % (45.5-73.1); Platelet Count Result 145 k/mm3 (150-375); Red Blood Count 5.04 M/mm3 (4.6-6.20); Red Cell Distribution Width 13.2 % (11.5-14.5); White Blood Count 18.8 K/mm3 (4.5-10.0)
[2024-03-06 06:40] LABS: Alanine Aminotransferase 11 U/L (6-50); Albumin Level 3.9 g/dL (3.5-5.1); Alkaline Phosphatase 85 U/L (38-126); Anion Gap 6 mmol/L (4-12); Aspartate Amino Transferase 19 U/L (17-59); Bilirubin,Total 0.5 mg/dL (0.2-1.3); Blood Urea Nitrogen 26 mg/dL (9-20); Calcium 8.9 mg/dL (8.4-10.2); Carbon Dioxide 25 mmol/L (22-30); Chloride 104 mmol/L (98-107); Estimated CRCL calculation 41 ml/min; Estimated Glomerular Filt Rate 59; Glucose 207 mg/dL (65-110); Potassium 4.6 mmol/L (3.4-5.0); Sodium 135 mmol/L (137-145)
[2024-03-06 06:49] LABS: Appearance Urine Clear (Clear); Bacteria Urine None Seen /hpf; Bilirubin Urine Negative (Negative); Blood Urine 1+ (Negative); Color Urine Yellow (Yellow); Glucose Urine UA Negative (Negative); Ketones Urine Negative (Negative); Leukocyte Esterase Ur Negative LEU/UL (Negative); Mucus Urine Present /lpf; Nitrate Urine Negative (Negative); Non Pathogenic Casts 0-2; Protein Urine Trace mg/dL (Negative); Specific Grav Ur 1.019 (1.001-1.035); Squamous Epithelial Cell Urine None Seen /hpf (Few); Urobilinogen Urine 0.2 mg/dL (<2.0); WBC Urine 0-5 /hpf (0-3)
[2024-03-06 06:50] LABS: Add Urine Microscopic? YES
[2024-03-06 06:58] LABS: INR 1.1; Prothrombin Time 14.6 Seconds (11.1-14.7)
[2024-03-06 06:59] LABS: Partial Thromboplastin Time 27.8 Seconds (22.3-36.8)
[2024-03-06 07:07] LABS: Influenza A QL RT-PCR Negative (Negative); Influenza B QL RT-PCR Negative (Negative); RSV RNA, RT-PCR Negative (Negative); SARS-CoV-2 RNA PCR Negative (Negative)
[2024-03-06] MEDS: SODIUM CHLORIDE 0.9% IV 1,000 ML 999 ML IV CONT (07:28)
[2024-03-06 09:28] LABS: Reflex Lactic Acid Yes or No Add Lactic
[2024-03-06 09:39] LABS: Creatine Kinase 346 U/L (55-170)
--- NOTE | 2024-03-06 09:41 | ED.GENADULT ---
HPI - General Adult General Chief complaint: Weakness Stated complaint: generalized weakness Time Seen by Provider: 03/06/24 07:03 Source: EMS Mode of arrival: EMS Limitations: altered mental status History of Present Illness HPI narrative: 78-year-old with a history of hypertension, and CAD, anxiety, intellectual disability lives in a long term was brought in with the complaints of fall. Patient upon arrival was covered with feces had 5 layers of clothes. Patient how he is unsure why he is here. Related Data Home Medications Medication Instructions Recorded Confirmed No Home Medications 05/17/22 05/17/22 Allergies Allergy/AdvReac Type Severity Reaction Status Date / Time No Known Allergies Allergy Verified 08/31/17 15:07 Review of Systems Review of Systems: ROS unobtainable: Yes unobtainable due to medical condition PMFSH Past Medical History Medical History Anxiety Coronary artery disease STEMI in fall 2018 status post PCI to the LAD. Hydrocephalus Hyperlipidemia Noted in previous records. Not currently on medication. Hypertension Noted in previous records. Not currently on medication. Intellectual disability Obstructive sleep apnea Noted in previous records. He does not use a CPAP. Surgical History Surgical History History of appendectomy History of cardiac catheterization (2018) Fall 2018: PCI to the LAD done at [place]. 07/11/2019: Balloon angioplasty to the distal terminal LAD. History of esophagogastroduodenoscopy Family History Family History Other Diabetes mellitus Social History Social History Social History: Surrogate decision maker: Boni Flores, alyshaer. Code status: Full code. Smoking status: Never smoker Alcohol intake: never Substance use: never Substance use type: does not use Living arrangements: with family Additional living arrangements comments: The patient lives with his brother in [place]. Spiritual care concerns: No Exam Narrative: GENERAL: Well-appearing, well-nourished, and in no acute distress., confused and unkempt HEAD: Normocephalic, atraumatic. EYES: PERRLA and EOMI. ENT: Nares clear, no rhinorrhea or epistaxis. Mucous membranes moist. NECK: Supple. CHEST: Clear to auscultation. No respiratory distress. HEART: Regular rate and rhythm. No murmur heard. Normal peripheral pulses. ABDOMEN: Soft, nontender, nondistended, normal active bowel sounds. EXTREMITIES: Normal range of motion. No edema. SKIN: Warm, dry, no rash. NEURO: No focal deficits. Alert PSYCH: Normal mood and affect. Course Course Emergency Course: Patient comfortably lying in bed in no discomfort. And did review his labs his lactic acid was elevated did give him a L of fluid , repeat lactic acid was 1.7. Patient needs to be placed in a half-way. He is unable to take care of himself he did a discussed with the hospitalist accepted the patient Vital Signs Vital signs: Vital Signs Temperature 36.9 C 03/06/24 05:47 Pulse Rate 88 03/06/24 05:47 Respiratory Rate 30 H 03/06/24 05:47 Blood Pressure 120/56 L 03/06/24 05:47 Pulse Oximetry 93 03/06/24 05:47 Oxygen Delivery Room Air 03/06/24 05:47 Temperature 36.9 C 03/06/24 05:47 Pulse Rate 88 03/06/24 05:47 Respiratory Rate 30 H 03/06/24 05:47 Blood Pressure 120/56 L 03/06/24 05:47 Pulse Oximetry 93 03/06/24 05:47 Oxygen Delivery Room Air 03/06/24 05:47 Medical Decision Making Differential Diagnosis Differential Diagnosis: Sepsis, head trauma, UTI, dehydration Vital Signs Vital Signs: Vital Signs Temperature 36.9 C 03/06/24 05:47 Pulse Rate 88 03/06/24 05:47 Respiratory Rate 30 H 03/06/24 05:47 Blood Pressure 120/56 L 03/06/24
[2024-03-06 09:48] LABS: Lactic Acid 1.7 mmol/L (0.7-2.0)
--- NOTE | 2024-03-06 11:56 | PM.IMHP ---
H&P: HPI History of Present Illness Date/Time: 03/06/24 11:56 Chief Complaint: confusion Narrative: patient is confused, history is taken from ER physician, 78 years old gentleman with history of hypertension, dementia, CAD, anxiety, brought to ED by EMS because of confusion. Patient was found on the floor, unknown time on the floor. And patient was found covered with feces and urine. patient was brought to ED for further evaluation treatment. Upon arrival, patient was afebrile, but had tachycardia tachypnea, leukocytosis 18,800 with left shift, elevated BUN creatinine ratio 26/1.2, urinalysis showed white blood cell 0 to 5, chest x-ray shows patchy infiltrate bilateral low base, prominent left lower lobe. when I saw examined patient in the ED, patient is alert, still confused. Patient could not recall who brought him in the hospital. patient was not oriented x3. Patient denies chest pain abdomen pain nausea vomiting. We admit patient for further evaluation and treatment Review of Systems Review of Systems: patient confused, , I am unable to review system completely except above PMFSH Past Medical History Medical History Anxiety Coronary artery disease STEMI in fall 2018 status post PCI to the LAD. Hydrocephalus Hyperlipidemia Noted in previous records. Not currently on medication. Hypertension Noted in previous records. Not currently on medication. Intellectual disability Obstructive sleep apnea Noted in previous records. He does not use a CPAP. Surgical History Surgical History History of appendectomy History of cardiac catheterization (2018) Fall 2018: PCI to the LAD done at [place]. 07/11/2019: Balloon angioplasty to the distal terminal LAD. History of esophagogastroduodenoscopy Family History Family History Other Diabetes mellitus Social History Social History Social History: Surrogate decision maker: Boni Flores, alyshaer. Code status: Full code. Smoking status: Never smoker Alcohol intake: never Substance use: never Substance use type: does not use Living arrangements: with family Additional living arrangements comments: The patient lives with his brother in [place]. Spiritual care concerns: No Meds Home Medications and Allergies Home Medications Medication Instructions Recorded Confirmed Type No Home Medications 05/17/22 05/17/22 History Allergies Allergy/AdvReac Type Severity Reaction Status Date / Time No Known Allergies Allergy Verified 08/31/17 15:07 Vital Signs Vital Signs - 24 hr 03/06/24 05:47 03/06/24 06:01 03/06/24 06:53 Temperature 98.4 F Pulse Rate 88 85 82 Respiratory Rate 30 H 26 H 27 H Blood Pressure 120/56 L 113/62 119/56 L Pulse Oximetry 93 91 97 Oxygen Delivery Room Air 03/06/24 07:01 03/06/24 07:31 03/06/24 08:01 Temperature Pulse Rate 81 80 85 Respiratory Rate 21 H 22 H 23 H Blood Pressure 124/60 119/59 L 128/61 Pulse Oximetry 96 96 98 Oxygen Delivery 03/06/24 09:11 03/06/24 09:30 03/06/24 09:31 Temperature Pulse Rate 79 77 79 Respiratory Rate 20 20 16 Blood Pressure 120/69 137/69 Pulse Oximetry 100 98 99 Oxygen Delivery 03/06/24 09:45 03/06/24 10:01 Temperature Pulse Rate 78 80 Respiratory Rate 20 20 Blood Pressure 145/66 H Pulse Oximetry 99 Oxygen Delivery Exam Narrative: GENERAL: lethargic in no acute distress. Well-nourished. - EYES: EOMI. Anicteric. - HENT: dry mucous membranes. - LUNGS: Clear to auscultation bilaterally, no wheezing, rhonchi, or rales. - CARDIOVASCULAR: Regular rate and rhythm. No murmur. No JVD. - ABDOMEN: Soft, non-tender and non-distended. No palpable masses. - EXTREMITIES: No edema. Peripheral pulses 2+.
[2024-03-06] MEDS: SODIUM CHLORIDE 0.9% IV 1,000 ML 125 ML IV CONT (13:00)
--- NOTE | 2024-03-06 15:42 | PC.NURSE ---
This RN placed call to [place] Adult Abuse Hotline ( ) at this time to relay patient condition/information. Worker made aware of patient admission.
--- NOTE | 2024-03-06 16:23 | PC.NURSE ---
This patient, Eduardo Flores, was admitted to 3 Med Surg Room 305-01. Patient/family oriented to hospital policies and general routines including ID bracelet, bed and alarms, visiting hours, pain management, procedures, bathroom and other care routines, personal items, smoking policy, room service/diet, and visiting hours. Information on how to activate the Rapid Response Team has been discussed. Patient/Family are encouraged to report perceived risks to care and to ask questions if they do not understand what they are told or what they should do.
[2024-03-06] MEDS: cefTRIAXone 2 GM/NS 100 ML 2 GM/100 ML BAG IVPB (17:05)
[2024-03-06] MEDS: metroNIDAZOLE 500 MG/ISO 100ML 500 MG/100 ML BAG 100 MG IVPB ×2 (17:05→20:52)
[2024-03-07] MEDS: SODIUM CHLORIDE 0.9% IV 1,000 ML 125 ML IV CONT ×2 (04:08→12:22)
[2024-03-07] MEDS: metroNIDAZOLE 500 MG/ISO 100ML 500 MG/100 ML BAG 100 MG IVPB ×3 (05:54→21:01)
[2024-03-07 06:00] VITALS: BP 144/43; PULSE 74; RESP 18; TEMP 36.1; O2SAT 99
[2024-03-07 06:20] LABS: Basophils Percent Auto 0.2 % (0.2-1.2); Eosinophils Absolute Auto 0.1 K/mm3 (0-0.3); Eosinophils Percent Auto 1.3 % (0-4.4); Hematocrit 41.6 % (42.0-52.0); Hemoglobin 13.3 g/dL (14.0-18.0); Immature Granulocyte Absolute 0.03 K/mm3 (0.00-0.031); Immature Granulocyte Percent A 0.3 % (0-0.5); Immature Platelet Fraction Pct 3.7 % (0.9-11.2); Lymphocytes Absolute Auto 0.85 K/mm3 (0.9-3.2); Lymphocytes Percent Auto 8.4 % (18.3-44.2); Mean Corpuscular Hemoglobin 29.2 pg (26-34); Mean Corpuscular Volume 91.4 fl (80-100); Mean Platelet Volume 10.3 fl (7.4-10.4); Monocytes Absolute Auto 0.6 K/mm3 (0.1-0.6); Neutrophils Absolute Auto 8.5 K/mm3 (1.3-6.7); Neutrophils Percent Auto 83.8 % (45.5-73.1); Platelet Count Result 134 k/mm3 (150-375); Red Blood Count 4.55 M/mm3 (4.6-6.20); Red Cell Distribution Width 13.2 % (11.5-14.5); White Blood Count 10.1 K/mm3 (4.5-10.0)
[2024-03-07 06:40] LABS: Anion Gap 3 mmol/L (4-12); Blood Urea Nitrogen 19 mg/dL (9-20); Carbon Dioxide 27 mmol/L (22-30); Chloride 107 mmol/L (98-107); Estimated CRCL calculation 49 ml/min; Estimated Glomerular Filt Rate > 60; Glucose 117 mg/dL (65-110); Potassium 3.8 mmol/L (3.4-5.0); Sodium 137 mmol/L (137-145)
[2024-03-07 08:15] VITALS: PULSE 74; O2SAT 98
--- NOTE | 2024-03-07 08:57 | PM.IMPN ---
Progress Note: A&P Assessment and Plan (1) Acute metabolic encephalopathy: Code(s): G93.41 - Metabolic encephalopathy Status: Acute (2) Altered mental status: Qualifiers: Altered mental status type: unspecified Qualified Code(s): R41.82 - Altered mental status, unspecified Code(s): R41.82 - Altered mental status, unspecified Status: Acute (3) Dehydration: Code(s): E86.0 - Dehydration Status: Acute (4) Acute renal failure: Code(s): N17.9 - Acute kidney failure, unspecified Status: Acute (5) Sepsis: Code(s): A41.9 - Sepsis, unspecified organism Status: Acute (6) Aspiration pneumonia: Code(s): J69.0 - Pneumonitis due to inhalation of food and vomit Status: Acute (7) Complicated UTI (urinary tract infection): Code(s): N39.0 - Urinary tract infection, site not specified Status: Acute (8) Hyperlipidemia: Code(s): E78.5 - Hyperlipidemia, unspecified Status: Acute (9) Anxiety: Code(s): F41.9 - Anxiety disorder, unspecified Status: Acute (10) CAD (coronary artery disease): Code(s): I25.10 - Atherosclerotic heart disease of [place] coronary artery without angina pectoris Status: Acute Plan acute metabolic encephalopathy Patient have dementia, patient not oriented x3, worse than baseline Possible acute metabolic encephalopathy due to dehydration and possible sepsis Neuro check CT of head shows no acute intracranial issues Four precaution Consult PT OT home health care physician for evaluation and assisting placement sepsis, aspiration pneumonia, UTI Patient has leukocytosis 18,500, tachycardia tachypnea, lactic acidosis 3.0 x-ray shows patchy infiltrate prominent left lower lobe Suspecting aspiration pneumonia , UA show white blood cell 0 5 and microscopic hematuria, suspecting UTI Start ceftriaxone and Flagyl IV Follow-up blood culture Start received fluid resuscitation in the ED, continue IV fluid blood culture has no growth so far Essential hypertension, blood pressure low initially, received fluid resuscitation blood pressure became stable continue IV fluid dehydration ZEB Elevated BUN creatinine above baseline Dry mucous membrane Possible due to dehydration Avoid nephrotoxic medication Follow-up BMP Patient may stay more than 2 midnights in the hospital Subjective Date/time seen: 03/07/24 08:57 Interval history: patient is afebrile, blood pressure stable, leukocytosis is resolving, mental status improving, lactic acidosis resolved. patient still not oriented x3 Exam Narrative: GENERAL: lethargic in no acute distress. Well-nourished. - EYES: EOMI. Anicteric. - HENT: dry mucous membranes. - LUNGS: Clear to auscultation bilaterally, no wheezing, rhonchi, or rales. - CARDIOVASCULAR: Regular rate and rhythm. No murmur. No JVD. - ABDOMEN: Soft, non-tender and non-distended. No palpable masses. - EXTREMITIES: No edema. Peripheral pulses 2+. Non-tender. - NEUROLOGIC: No focal neurological deficits. CN II-XII grossly intact. know we are extremities, general weakness, - PSYCHIATRIC: Awake, Alert and not oriented x 3. Appropriate mood and affect. - SKIN: No rashes or lesions. Warm. - LYMPH: No cervical lymphadenopathy. Objective Data Vital Signs Vital Signs: Vital Signs - 24 hr 03/06/24 09:11 03/06/24 09:30 03/06/24 09:31 Temperature Pulse Rate 79 77 79 Respiratory Rate 20 20 16 Blood Pressure 120/69 137/69 Pulse Oximetry 100 98 99 Oxygen Delivery 03/06/24 09:45 03/06/24 10:01 03/06/24 12:00 Temperature 97.7 F Pulse Rate 78 80 71 Respiratory Rate 20 20 18 Blood Pressure 145/66 H 127/63 Pulse Oximetry 99 99 Oxygen Delivery 03/06/24 13:26 03/06/24 16:35 03/06/24 21:01 Temperature 97.7 F 96.9 F L Pulse Rate 71 74 Respiratory Rate 18 18 Blood Pressure 127/63 108/52 L Pulse Oximetry 99 96 Oxygen Delivery
[2024-03-07] MEDS: cefTRIAXone 2 GM/NS 100 ML 2 GM/100 ML BAG IVPB (12:20)
[2024-03-07 14:00] VITALS: BP 109/51; PULSE 71; RESP 16; TEMP 36.4; O2SAT 98
[2024-03-07 14:27] VITALS: O2SAT 97
[2024-03-07 20:33] VITALS: BP 139/64; PULSE 68; RESP 16; TEMP 36.6; O2SAT 100
[2024-03-08 05:30] VITALS: BP 147/68; PULSE 65; RESP 20; TEMP 36.2; O2SAT 100
[2024-03-08] MEDS: metroNIDAZOLE 500 MG/ISO 100ML 500 MG/100 ML BAG 100 MG IVPB ×3 (05:43→23:46)
[2024-03-08] MEDS: SODIUM CHLORIDE 0.9% IV 1,000 ML 125 ML IV CONT ×2 (05:47→12:22)
--- NOTE | 2024-03-08 08:07 | PM.IMPN ---
Progress Note: A&P Assessment and Plan (1) Acute metabolic encephalopathy: Code(s): G93.41 - Metabolic encephalopathy Status: Acute (2) Altered mental status: Qualifiers: Altered mental status type: unspecified Qualified Code(s): R41.82 - Altered mental status, unspecified Code(s): R41.82 - Altered mental status, unspecified Status: Acute (3) Dehydration: Code(s): E86.0 - Dehydration Status: Acute (4) Acute renal failure: Code(s): N17.9 - Acute kidney failure, unspecified Status: Acute (5) Sepsis: Code(s): A41.9 - Sepsis, unspecified organism Status: Acute (6) Aspiration pneumonia: Code(s): J69.0 - Pneumonitis due to inhalation of food and vomit Status: Acute (7) Complicated UTI (urinary tract infection): Code(s): N39.0 - Urinary tract infection, site not specified Status: Acute (8) Hyperlipidemia: Code(s): E78.5 - Hyperlipidemia, unspecified Status: Acute (9) Anxiety: Code(s): F41.9 - Anxiety disorder, unspecified Status: Acute (10) CAD (coronary artery disease): Code(s): I25.10 - Atherosclerotic heart disease of [place] coronary artery without angina pectoris Status: Acute Plan acute metabolic encephalopathy Patient have dementia, patient not oriented x3, worse than baseline Possible acute metabolic encephalopathy due to dehydration and possible sepsis Neuro check CT of head shows no acute intracranial issues Four precaution Consult PT OT manager critical care for evaluation and assisting placement sepsis, aspiration pneumonia, UTI Patient has leukocytosis 18,500, tachycardia tachypnea, lactic acidosis 3.0 x-ray shows patchy infiltrate prominent left lower lobe Suspecting aspiration pneumonia , UA show white blood cell 0 5 and microscopic hematuria, suspecting UTI continue ceftriaxone and Flagyl IV Follow-up blood culture, no growth so far Start received fluid resuscitation in the ED, continue IV fluid Essential hypertension, blood pressure low initially, received fluid resuscitation blood pressure became stable continue IV fluid blood pressure stable dehydration ZEB Elevated BUN creatinine above baseline Dry mucous membrane Possible due to dehydration Avoid nephrotoxic medication Follow-up BMP Patient may stay more than 2 midnights in the hospital Subjective Date/time seen: 03/08/24 08:07 Interval history: patient is afebrile, blood pressure stable, leukocytosis is resolving, mental status continue to improve, patient is alert, oriented to place, not oriented to time and person. no other new issues or event Exam Narrative: GENERAL: ill-appearing in no acute distress. Well-nourished. - EYES: EOMI. Anicteric. - HENT: Moist mucous membranes. - LUNGS: Clear to auscultation bilaterally, no wheezing, rhonchi, or rales. - CARDIOVASCULAR: Regular rate and rhythm. No murmur. No JVD. - ABDOMEN: Soft, non-tender and non-distended. No palpable masses. - EXTREMITIES: No edema. Peripheral pulses 2+. Non-tender. - NEUROLOGIC: No focal neurological deficits. CN II-XII grossly intact. - PSYCHIATRIC: Awake, Alert and oriented to place only Appropriate mood and affect. - SKIN: No rashes or lesions. Warm. - LYMPH: No cervical lymphadenopathy. Objective Data Vital Signs Vital Signs: Vital Signs - 24 hr 03/07/24 09:05 03/07/24 08:15 03/07/24 14:27 Temperature Pulse Rate 74 Respiratory Rate Blood Pressure Pulse Oximetry 98 97 Oxygen Delivery Room Air Room Air Room Air 03/07/24 14:00 03/07/24 20:33 03/08/24 05:30 Temperature 97.6 F 97.8 F 97.1 F L Pulse Rate 71 68 65 Respiratory Rate 16 16 20 Blood Pressure 109/51 L 139/64 147/68 H Pulse Oximetry 98 100 100 Oxygen Delivery Intake/Output Intake/Output: Intake & Output 03/05/24 03/06/24 03/07/24 03/08/24 23:59 23:59 23:59 23:59 Intake Total 0730 473
[2024-03-08 09:39] LABS: Hemoglobin 15.3 g/dL (14.0-18.0); Mean Corpuscular HGB Conc 32.6 g/dl (32-36); Mean Corpuscular Hemoglobin 29.7 pg (26-34); Mean Corpuscular Volume 91.1 fl (80-100); Mean Platelet Volume 9.8 fl (7.4-10.4); Platelet Count Result 142 k/mm3 (150-375); Red Blood Count 5.16 M/mm3 (4.6-6.20); Red Cell Distribution Width 13.1 % (11.5-14.5); White Blood Count 9.3 K/mm3 (4.5-10.0)
[2024-03-08 09:50] LABS: Anion Gap 6 mmol/L (4-12); Blood Urea Nitrogen 18 mg/dL (9-20); Calcium 8.6 mg/dL (8.4-10.2); Carbon Dioxide 26 mmol/L (22-30); Chloride 106 mmol/L (98-107); Estimated CRCL calculation 49 ml/min; Estimated Glomerular Filt Rate > 60; Glucose 161 mg/dL (65-110); Potassium 4.7 mmol/L (3.4-5.0); Sodium 138 mmol/L (137-145)
[2024-03-08] MEDS: cefTRIAXone 2 GM/NS 100 ML 2 GM/100 ML BAG IVPB (12:21)
[2024-03-08 13:54] VITALS: BP 105/58; PULSE 67; RESP 18; TEMP 36.3; O2SAT 99
[2024-03-08 20:55] VITALS: BP 121/63; PULSE 69; RESP 20; TEMP 36.7; O2SAT 100
[2024-03-09 05:25] VITALS: BP 129/58; PULSE 69; RESP 18; TEMP 36; O2SAT 97
[2024-03-09] MEDS: metroNIDAZOLE 500 MG/ISO 100ML 500 MG/100 ML BAG 100 MG IVPB (05:52)
--- NOTE | 2024-03-09 08:44 | PM.IMPN ---
Progress Note: A&P Assessment and Plan (1) Acute metabolic encephalopathy: Code(s): G93.41 - Metabolic encephalopathy Status: Acute (2) Altered mental status: Qualifiers: Altered mental status type: unspecified Qualified Code(s): R41.82 - Altered mental status, unspecified Code(s): R41.82 - Altered mental status, unspecified Status: Acute (3) Dehydration: Code(s): E86.0 - Dehydration Status: Acute (4) Acute renal failure: Code(s): N17.9 - Acute kidney failure, unspecified Status: Acute (5) Sepsis: Code(s): A41.9 - Sepsis, unspecified organism Status: Acute (6) Aspiration pneumonia: Code(s): J69.0 - Pneumonitis due to inhalation of food and vomit Status: Acute (7) Complicated UTI (urinary tract infection): Code(s): N39.0 - Urinary tract infection, site not specified Status: Acute (8) Hyperlipidemia: Code(s): E78.5 - Hyperlipidemia, unspecified Status: Acute (9) Anxiety: Code(s): F41.9 - Anxiety disorder, unspecified Status: Acute (10) CAD (coronary artery disease): Code(s): I25.10 - Atherosclerotic heart disease of [place] coronary artery without angina pectoris Status: Acute Plan acute metabolic encephalopathy Patient have dementia, patient not oriented x3, worse than baseline Possible acute metabolic encephalopathy due to dehydration and possible sepsis Neuro check CT of head shows no acute intracranial issues Four precaution Consult PT OT primary care md for evaluation and assisting placement sepsis, aspiration pneumonia, UTI Patient has leukocytosis 18,500, tachycardia tachypnea, lactic acidosis 3.0 x-ray shows patchy infiltrate prominent left lower lobe Suspecting aspiration pneumonia , UA show white blood cell 0 5 and microscopic hematuria, suspecting UTI continue ceftriaxone and Flagyl IV Follow-up blood culture, no growth so far received fluid resuscitation in the ED, continue IV fluid Patient has finished 4 days of antibiotics, will change to Augmentin p.o. Essential hypertension, blood pressure low initially, received fluid resuscitation blood pressure became stable continue IV fluid blood pressure stable dehydration ZEB Elevated BUN creatinine above baseline Dry mucous membrane Possible due to dehydration Avoid nephrotoxic medication Follow-up BMP resolved patient is ready to be discharged to [facility] today Subjective Date/time seen: 03/09/24 08:44 Interval history: patient is afebrile, blood pressure stable, continue to improve, patient is alert, oriented to place, not oriented to time and person. no other new issues or event Exam Narrative: GENERAL: ill-appearing in no acute distress. Well-nourished. - EYES: EOMI. Anicteric. - HENT: Moist mucous membranes. - LUNGS: Clear to auscultation bilaterally, no wheezing, rhonchi, or rales. - CARDIOVASCULAR: Regular rate and rhythm. No murmur. No JVD. - ABDOMEN: Soft, non-tender and non-distended. No palpable masses. - EXTREMITIES: No edema. Peripheral pulses 2+. Non-tender. - NEUROLOGIC: No focal neurological deficits. CN II-XII grossly intact. - PSYCHIATRIC: Awake, Alert and oriented to place only Appropriate mood and affect. - SKIN: No rashes or lesions. Warm. - LYMPH: No cervical lymphadenopathy. Objective Data Vital Signs Vital Signs: Vital Signs - 24 hr 03/08/24 13:54 03/08/24 20:55 03/08/24 20:00 Temperature 97.4 F L 98.1 F Pulse Rate 67 69 Respiratory Rate 18 20 Blood Pressure 105/58 L 121/63 Pulse Oximetry 99 100 Oxygen Delivery Room Air 03/09/24 05:25 Temperature 96.8 F L Pulse Rate 69 Respiratory Rate 18 Blood Pressure 129/58 L Pulse Oximetry 97 Oxygen Delivery Intake/Output Intake/Output: Intake & Output 03/06/24 03/07/24 03/08/24 03/09/24 23:59 23:59 23:59 23:59 Intake Total 3276 4730 3692.9 820 Balance 32
--- NOTE | 2024-03-09 08:44 | PM.DS ---
DS: Admitting Diagnosis Discharge Date 03/09 Admitting Diagnosis (1) Acute metabolic encephalopathy: Code(s): G93.41 - Metabolic encephalopathy Status: Acute (2) Altered mental status: Qualifiers: Altered mental status type: unspecified Qualified Code(s): R41.82 - Altered mental status, unspecified Code(s): R41.82 - Altered mental status, unspecified Status: Acute (3) Dehydration: Code(s): E86.0 - Dehydration Status: Acute (4) Acute renal failure: Code(s): N17.9 - Acute kidney failure, unspecified Status: Acute (5) Sepsis: Code(s): A41.9 - Sepsis, unspecified organism Status: Acute (6) Aspiration pneumonia: Code(s): J69.0 - Pneumonitis due to inhalation of food and vomit Status: Acute (7) Complicated UTI (urinary tract infection): Code(s): N39.0 - Urinary tract infection, site not specified Status: Acute (8) Hyperlipidemia: Code(s): E78.5 - Hyperlipidemia, unspecified Status: Acute (9) Anxiety: Code(s): F41.9 - Anxiety disorder, unspecified Status: Acute (10) CAD (coronary artery disease): Code(s): I25.10 - Atherosclerotic heart disease of [place] coronary artery without angina pectoris Status: Acute DS: Discharge Diagnosis Discharge Diagnosis (1) Acute metabolic encephalopathy: Code(s): G93.41 - Metabolic encephalopathy Status: Acute (2) Altered mental status: Qualifiers: Altered mental status type: unspecified Qualified Code(s): R41.82 - Altered mental status, unspecified Code(s): R41.82 - Altered mental status, unspecified Status: Acute (3) Dehydration: Code(s): E86.0 - Dehydration Status: Acute (4) Acute renal failure: Code(s): N17.9 - Acute kidney failure, unspecified Status: Acute (5) Sepsis: Code(s): A41.9 - Sepsis, unspecified organism Status: Acute (6) Aspiration pneumonia: Code(s): J69.0 - Pneumonitis due to inhalation of food and vomit Status: Acute (7) Complicated UTI (urinary tract infection): Code(s): N39.0 - Urinary tract infection, site not specified Status: Acute (8) Hyperlipidemia: Code(s): E78.5 - Hyperlipidemia, unspecified Status: Acute (9) Anxiety: Code(s): F41.9 - Anxiety disorder, unspecified Status: Acute (10) CAD (coronary artery disease): Code(s): I25.10 - Atherosclerotic heart disease of [place] coronary artery without angina pectoris Status: Acute DS: Summary Hospital Course Hospital Course: 78 years old gentleman with history of hypertension, dementia, CAD, anxiety, brought to ED by EMS because of confusion. Patient was found on the floor, unknown time on the floor. And patient was found covered with feces and urine. patient was brought to ED for further evaluation treatment. Upon arrival, patient was afebrile, but had tachycardia tachypnea, leukocytosis 18,800 with left shift, elevated BUN creatinine ratio 26/1.2, urinalysis showed white blood cell 0 to 5, chest x-ray shows patchy infiltrate bilateral low base, prominent left lower lobe. when I saw examined patient in the ED, patient is alert, still confused. Patient could not recall who brought him in the hospital. patient was not oriented x3. Patient denies chest pain abdomen pain nausea vomiting. We admit patient for further evaluation and treatment acute metabolic encephalopathy Patient have dementia, patient not oriented x3, worse than baseline Possible acute metabolic encephalopathy due to dehydration and possible sepsis Neuro check CT of head shows no acute intracranial issues Four precaution Consult PT OT rn critical care for evaluation and assisting placement sepsis, aspiration pneumonia, UTI Patient has leukocytosis 18,500, tachycardia tachypnea, lactic acidosis 3.0 x-ray shows patchy infiltrate prominent
[2024-03-09 11:58] LABS: SARS-CoV-2 RNA PCR Negative (Negative)
[2024-03-09 13:36] VITALS: BP 115/47; PULSE 82; RESP 16; TEMP 36.2; O2SAT 98
== END 2024-03-09 14:05 | DRG 871 ==
LOC: ANHED 10:18 → ANH3MEDSUR 10:45
PROVIDERS: Emergency Medicine; Admitting Provider Hospitalist; Emergency Provider Family Medicine; PCP Emergency Medicine; Visit Provider Hospitalist
DX: A41.9 Sepsis, unspecified organism (principal); G93.41 Metabolic encephalopathy; J69.0 Pneumonitis due to inhalation of food and vomit; J18.9 Pneumonia, unspecified organism; N17.9 Acute kidney failure, unspecified; N39.0 Urinary tract infection, site not specified; R31.29 Other microscopic hematuria; Z20.822 Contact with and (suspected) exposure to COVID-19; E86.0 Dehydration; E78.5 Hyperlipidemia, unspecified; F41.9 Anxiety disorder, unspecified; I25.10 Atherosclerotic heart disease of native coronary artery without angina pectoris; F03.90 Unspecified dementia, unspecified severity, without behavioral disturbance, psychotic disturbance, mood disturbance, and anxiety; Z90.49 Acquired absence of other specified parts of digestive tract
CPT/HCPCS: 36415; 70450; 71045; 80048; 80053; 81001; 82550; 83605; 85025; 85027; 85055; 85610; 85730; 87040; 87635; 87637; 93005; 96360; 97110; 97116; 97161; 97165; 97530; 99285; J0696; J1836; J7030

== ENCOUNTER 2025-05-19 22:03 | Inpatient (IN) | payer MEDICARE, MEDICAID, SELFPAY ==
--- NOTE | ~2025-05-19 | XR_ITS ---
CHEST RADIOGRAPH CLINICAL HISTORY: weakness . COMPARISON: 03/06/2024 TECHNIQUE: Single portable view of the chest. FINDINGS The cardiomediastinal silhouette is unremarkable. The lungs are clear. IMPRESSION: No focal infiltrate or effusion. Reviewed, dictated and finalized at location A.
--- NOTE | ~2025-05-19 | CT_ITS ---
EXAMINATION: CT brain wo con DATE: 05/20/2025 00:51 INDICATION: Weakness TECHNIQUE: Computed tomography (CT) of the head was performed without intravenous contrast. Sagittal and coronal reconstructions were performed. The mA was adjusted according to patient size. Iterative reconstruction technique was employed. The dose-length product was 756.67 mGy-cm. COMPARISON: head CT dated 03/06/2024 FINDINGS: No acute intracranial hemorrhage, acute infarction or abnormal extra axial fluid collection. There is moderate scattered white matter hypoattenuation consistent with chronic small vessel ischemic diseas e. Symmetric prominence of the sulci consistent with mild age-appropriate diffuse cerebral volume lo ss. Ventricles are normal and symmetric. No mass/mass effect. Mucus retention cyst in the right maxil julián sinus. The orbits are normal. Bilateral mastoids are hypopneumatized but clear. IMPRESSION: 1. No acute intracranial process. 2. Age-related changes including mild diffuse volume loss and moderate scattered white matter hypoatt enuation consistent with chronic small vessel ischemic disease. Reviewed, dictated and finalized at location A. IMPRESSION: 1. No acute intracranial process. 2. Age-related changes including mild diffuse volume loss and moderate scattere d white matter hypoattenuation consistent with chronic small vessel ischemic di sease.
--- NOTE | ~2025-05-19 | CT_ITS ---
EXAMINATION: CT diagnostic chest w con DATE: 05/20/2025 09:16 INDICATION: Dedicated imaging of concern of aspiration PNA TECHNIQUE: Computed tomography (CT) of the chest was performed without intravenous contrast. Addition al 3D reconstructions utilizing coronal maximum intensity projection (MIP) were performed. Automated exposure control and iterative reconstruction technique were employed. The dose-length product was 20 5.81 mGy-cm. COMPARISON: 10/27/2014 FINDINGS: Chronic pneumatocele in the posterior segment of the right upper lobe. Patchy consolidation in the ba silar left lower lobe and small region of tree-in-bud opacity in the dependent right middle lobe cons istent with endobronchial spread of disease and aspiration and/or pneumonia. No pulmonary edema, pleu ral effusion or pneumothorax. Heart size normal. Atherosclerotic coronary artery calcifications. No p ericardial effusion. Aortic valve calcification. Thoracic aorta is normal in caliber with no dissecti on. Bilateral renal cysts the largest on the left measuring 6.5 cm. There are couple small calcified nodules at the caudal tip of the right hepatic lobe consistent with old granulomatous disease. Modera te thoracic spondylosis with chronic mild anterior wedging of a few mid to lower thoracic vertebral b odies. IMPRESSION: 1. Focal lung disease in mild in the dependent right middle lobe and more prominent at the basilar le ft lower lobe consistent with aspiration and/or pneumonia. Reviewed, dictated and finalized at location A. IMPRESSION: 1. Focal lung disease in mild in the dependent right middle lobe and more promi nent at the basilar left lower lobe consistent with aspiration and/or pneumonia .
--- NOTE | ~2025-05-19 | CT_ITS ---
EXAMINATION: CT abdomen pelvis w con DATE: 05/20/2025 01:05 INDICATION: Lactic acidosis. Sacral wound. TECHNIQUE: Computed tomography (CT) of the abdomen and pelvis was performed with 100 mL Omnipaque-350 intravenous contrast. Automated exposure control and iterative reconstruction technique were employe d. The dose-length product was 425.08 mGy-cm. COMPARISON: None FINDINGS: Tree-in-bud opacities and small region of consolidation at the basilar left lower lobe small region o f tree-in-bud opacity in the dependent right middle lobe which are suspicious for aspiration or pneum onia. No pleural effusion. Heart size is normal. Atherosclerotic coronary artery calcific location an d aortic valve calcific lesion. No pericardial effusion. Liver, gallbladder, spleen, pancreas and bilateral adrenal glands are normal. There are bilateral carmen al cysts the largest on the left measuring 6.7 cm. Prostatomegaly measuring 5.[address] in the bladder. Mild sigmoid diverticulosis without adjacent comparison to suggest diverticular c olitis. Small bowel and appendix are normal. No free intraperitoneal gas or fluid. No pathologically enlarged abdominal or pelvic lymphadenopathy. Mild to moderate thoracic and moderate to severe lumbar spondylosis. No evident deep decubitus ulceration, abscess or evident osteomyelitis at the sacrum or coccyx. IMPRESSION: 1. Tree-in-bud opacities in the dependent right middle lobe and at the basilar left lower lobe is als o some focal consolidation consistent with aspiration and/or pneumonia. Reviewed, dictated and finalized at location A. IMPRESSION: 1. Tree-in-bud opacities in the dependent right middle lobe and at the basilar left lower lobe is also some focal consolidation consistent with aspiration and /or pneumonia.
[2025-05-19 22:03] VITALS: BP 126/71; PULSE 86; RESP 16; TEMP 37.3; O2SAT 100
--- NOTE | 2025-05-19 22:15 | ECG_ITS ---
Test Date: 2025-05-19 22:17:35 Measurements Intervals [place] Rate: 84 P: 47 [place]: 160 QRS: 5 QRSD: 139 T: 125 QT: 388 QTc: 460 Interpretive Statements SINUS RHYTHM WITH OCCASIONAL SUPRAVENTRICULAR PREMATURE COMPLEXES LEFT BUNDLE BRANCH BLOCK BASELINE ARTIFACT- I, II, AVR, AVL, AVF, V1-V6 ABNORMAL ECG Compared to ECG 03/06/2024 05:57:38 LEFT BUNDLE BRANCH BLOCK NOW PRESENT Electronically Signed On 05-20-2025 07:20:40 CDT by Dixon Rubio D.O.
[2025-05-19 22:17] VITALS: PULSE 84
--- NOTE | 2025-05-19 22:18 | ED_ITS ---
HPI - Weakness General Chief complaint: Weakness Stated complaint: Weakness/Found on floor History of Present Illness HPI Narrative: 79-year-old male with history of hypertension, intellectual debility [facility] presenting to the emergency department for failure to thrive and found with generalized weakness and on the ground of the toilet. He is soiled with multiple layers of urine and feces stand closing. Appears very disheveled. Smells foul. Patient is awake and answering questions x2 which is his reported baseline after he was found by his brother. No apparent falls or injuries. Patient is not any distress not complaining anything aside from just weakness as he was not able to walk. No visible signs of traumatic injury. He is covered in multiple layers of clothing including 4 layers of shirts and pants. 3 layers of socks. He is answering all questions appropriately and not in distress. Related Data Allergies Allergy/AdvReac Type Severity Reaction Status Date / Time No Known Allergies Allergy Verified 08/31/17 15:07 Review of Systems 2 Review of Systems: As reviewed above in HPI ON LICENSE OF [facility] Past Medical History Medical History (Updated 05/20/25 @ 07:02 by Abdifatah Mcqueen MD) Lactic acidosis Hyperkalemia Self-care deficit Intellectual disability Hydrocephalus Anxiety Hyperlipidemia Noted in previous records. Not currently on medication. Hypertension Noted in previous records. Not currently on medication. Obstructive sleep apnea Noted in previous records. He does not use a CPAP. Coronary artery disease STEMI in fall 2018 status post PCI to the LAD. Surgical History Surgical History History of esophagogastroduodenoscopy History of appendectomy History of cardiac catheterization (2018) Fall 2018: PCI to the LAD done at [place]. 07/11/2019: Balloon angioplasty to the distal terminal LAD. Family History Family History Other Diabetes mellitus Social History Social History Social History: Surrogate decision maker: Boni Flores, brother. Code status: Full code. Smoking status: Never smoker Alcohol intake: never Substance use: never Substance use type: does not use Do You Feel Safe in your Home?: Yes Lack of Transportation: No Lack of Food: Never True Current Housing: I Have Housing Concerned About Future Housing: No Difficulty Paying Gas/Electric Bills: Decline to Answer Difficulty Paying for Meds: Decline to Answer Currently Unemployed: Decline to Answer Education: Decline to Answer Difficulty w/ Childcare or Family Care: No Living arrangements: with family Additional living arrangements comments: The patient lives with his brother in [place]. Spiritual care concerns: No Exam 2 Narrative: GENERAL: Disheveled, foul smelling, multiple layers of clothes HEAD: Cachectic appearing but normocephalic otherwise EYES: [PERRLA and EOMI.] ENT: Nares clear, no rhinorrhea or epistaxis. Mucous membranes moist. NECK: Supple. CHEST: [Clear to auscultation. No respiratory distress.] HEART: [Regular rate and rhythm]. No murmur heard. [Normal peripheral pulses.] ABDOMEN: [Soft, nondistended], [nontender], [No rigidity or guarding] EXTREMITIES: Normal range of motion. [No edema.] SKIN: Covered in feces sustained, foul-smelling, stage I and stage II ulcerations over his sacral region and scrotal region without any purulent drainage, tenderness to palpation. Skin tissue appears macerated, but not obviously infected without any purulent drainage, tenderness or abscess formation. NEURO: No overt focal deficits. Alert and oriented x2, reportedly at baseline mentation, moving all extremities with no facial asymmetry slurring speech. PSYCH: [Normal mood and affect.] Course Vital Signs Vital signs: Vital Signs Temperature 37.3 C 05/19/25 22:03 Pulse Rate 86 05/19/25 22:03 Respiratory Rate 16 05/19/25 22:03 Blood Pressure 126/71 05/19/25 22:03 Pulse Oximetry 100 05/19/25 22:03 Oxygen Delivery Room Air 05/19/25 22:03 Temperature 37.3 C 05/19/25 22:03 Pulse Rate 79 05/20/25 05:21 Respiratory Rate 19 05/20/25 05:21 Blood Pressure 118/64 05/20/25 05:21 Pulse Oximetry 100 05/20/25 05:21 Oxygen Delivery Room Air 05/19/25 22:03 MDM - Weakness MDM Narrative Medical decision making narrative: 79-year-old male with history of hypertension, intellectual debility living at a [facility] presenting to the emergency department for failure to thrive and found with generalized weakness and on the ground of the toilet. He is soiled with multiple layers of urine and feces stand closing. Appears very disheveled. Smells foul. Patient is awake and answering questions x2 which is his reported baseline after he was found by his brother. No apparent falls or injuries. Patient is not any distress not complaining anything aside from just weakness as he was not able to walk. No visible signs of traumatic injury. He is covered in multiple layers of clothing including 4 layers of shirts and pants. 3 layers of socks. He is answering all questions appropriately and not in distress. Patient is cachectic appearing, covered in feces stains essentially head to toe, foul-smelling, stage I and stage II ulcerations over his sacral region and scrotal region without any purulent drainage, tenderness to palpation. Skin tissue appears macerated, but not obviously infected without any purulent drainage, tenderness or abscess formation. Hemodynamically stable normal vital signs with a tachycardia, fever, tachypnea, blood pressure concerns or hypoxemia. Sepsis bundle initiated as well as adding on a CPK level. He was given 2 L of fluid hydration, empirically started on vancomycin for the sores on his backside. Urinalysis with straight catheterization in broad workup obtained at this time. CT head imaging given generalized weakness and chest x-ray as well. CT of the head shows no acute abnormalities. CT of the abdomen pelvis shows some thickened wall findings consistent with cystitis, enlarged prostate gland, left basilar opacity likely aspiration. Fat stranding in the bilateral buttocks without any abscess or fluid collections. Patient started on broader antibiotics including vancomycin, Rocephin and Flagyl for anaerobic and aspiration coverage. Laboratory studies are reassuring, no leukocytosis or anemia. Normal platelet count. Electrolytes with some hyperkalemia 5.3 but also renal dehydration with a BUN of 32 and a creatinine 1.25 which is above his baseline indicative of acute kidney injury. Consistent with lactic acidosis of 4.2 from dehydration which improved to 1.4 after hydration. Renal function improved and he was given calcium gluconate as well as Lokelma for the high potassium which also corrected to 4.4 on repeat draw. Urinalysis with no florid signs of UTI. Spoke to the hospitalist who accepted the patient to the hospital at this time. Patient was cleaned up and no longer disheveled or covered in stool. Medical Records Attestation: I reviewed the patient's medical records. Lab Data Attestation: I reviewed the patient's lab results. 05/19/25 22:37 05/20/25 06:37 Labs: Lab Results 05/19/25 05/19/25 05/19/25 Range/Units 22:37 22:38 23:26 WBC 9.7 (4.5-10.0) K/mm3 RBC 5.62 (4.6-6.20) M/mm3 Hgb 15.9 (14.0-18.0) g/dL Hct 50.3 (42.0-52.0) % MCV 89.5 (80-100) fl MCH 28.3 (26-34) pg MCHC 31.6 L (32-36) g/dl RDW 13.1 (11.5-14.5) % Plt Count 179 (150-375) k/mm3 MPV 9.7 (7.4-10.4) fl Immature Gran % (Auto) 0.3 (0-0.5) % Neut % (Auto) 83.7 H (45.5-73.1) % Lymph % (Auto) 8.1 L (18.3-44.2) % Rush % (Auto) 6.6 (2.6-8.5) % Eos % (Auto) 1.0 (0-4.4) % Baso % (Auto) 0.3 (0.2-1.2) % Lymph # (Auto) 0.78 L (0.9-3.2) K/mm3 Rush # (Auto) 0.6 (0.1-0.6) K/mm3 Eos # (Auto) 0.1 (0-0.3) K/mm3 Baso # (Auto) 0.0 (0.0-0.1) K/mm3 Abs Immat Gran (auto) 0.03 (0.00-0.031) K/mm3 Absolute Neuts (auto) 8.1 H (1.3-6.7) K/mm3 Absolute Nucleated RBC 0.000 (0.0-0.012) K/mm3 Nucleated RBC % 0.0 (0.0-0.2) % PT 16.0 H (11.1-14.7) Seconds INR 1.3 APTT 31.3 (22.3-36.8) Seconds Sodium 135 L (137-145) mmol/L Potassium 5.3 H (3.4-5.0) mmol/L Chloride 101 (98-107) mmol/L Carbon Dioxide 15 L (22-30) mmol/L Anion Gap 19 H (4-12) mmol/L BUN 32 H D (9-20) mg/dL Creatinine 1.25 (0.7-1.3) mg/dL Estim Creat Clear Calc 34 ml/min Estimated GFR 56 L (59 - ) Glucose 95 (65-110) mg/dL Lactic Acid 4.2 H* (0.7-2.0) mmol/L Calcium 9.2 (8.4-10.2) mg/dL Total Bilirubin 1.0 (0.2-1.3) mg/dL AST 33 (17-59) U/L ALT 20 (6-50) U/L Alkaline Phosphatase 95 (38-126) U/L Total Creatine Kinase 52 L (55-170) U/L C-Reactive Protein 10.3 H (<1.0) mg/dL Total Protein 7.2 (6.3-8.2) g/dL Albumin 4.1 (3.5-5.1) g/dL Urine Color Yellow (Yellow) Urine Appearance Clear (Clear) Urine pH 5.5 (5.0-9.0) Ur Specific [place] 1.026 (1.001-1.035) Urine Protein Trace (Negative) mg/dL Urine Glucose (UA) Negative (Negative) mg/dL Urine Ketones 3+ H (Negative) mg/dL Ur Blood (Man) Negative (Negative) Urine Nitrate Negative (Negative) Urine Bilirubin Negative (Negative) Urine Urobilinogen 1.0 (<2.0) mg/dL Add Ur Microanalysis Reviewed Leukocyte Esterase Rfl Negative (Negative) GERARDO/UL Urine RBC 3-5 H (0-2) /hpf Urine WBC 0-5 (0-3) /hpf Ur Squamous Epith Cells Occasional (Few) /hpf Urine Bacteria None seen /hpf Urine Casts 11-20 Hyaline Casts Present (None) /lpf Urine Mucus Present /lpf Syphilis IgG/IgM Ab (Nonreactive) HSV I DNA PCR HSV II DNA PCR 05/19/25 05/20/25 05/20/25 Range/Units 23:51 00:40 01:57 WBC (4.5-10.0) K/mm3 RBC (4.6-6.20) M/mm3 Hgb (14.0-18.0) g/dL Hct (42.0-52.0) % MCV (80-100) fl MCH (26-34) pg MCHC (32-36) g/dl RDW (11.5-14.5) % Plt Count (150-375) k/mm3 MPV (7.4-10.4) fl Immature Gran % (Auto) (0-0.5) % Neut % (Auto) (45.5-73.1) % Lymph % (Auto) (18.3-44.2) % Rush % (Auto) (2.6-8.5) % Eos % (Auto) (0-4.4) % Baso % (Auto) (0.2-1.2) % Lymph # (Auto) (0.9-3.2) K/mm3 Rush # (Auto) (0.1-0.6) K/mm3 Eos # (Auto) (0-0.3) K/mm3 Baso # (Auto) (0.0-0.1) K/mm3 Abs Immat Gran (auto) (0.00-0.031) K/mm3 Absolute Neuts (auto) (1.3-6.7) K/mm3 Absolute Nucleated RBC (0.0-0.012) K/mm3 Nucleated RBC % (0.0-0.2) % PT (11.1-14.7) Seconds INR APTT (22.3-36.8) Seconds Sodium (137-145) mmol/L Potassium (3.4-5.0) mmol/L Chloride (98-107) mmol/L Carbon Dioxide (22-30) mmol/L Anion Gap (4-12) mmol/L BUN (9-20) mg/dL Creatinine (0.7-1.3) mg/dL Estim Creat Clear Calc ml/min Estimated GFR (59 - ) Glucose (65-110) mg/dL Lactic Acid 1.4 (0.7-2.0) mmol/L Calcium (8.4-10.2) mg/dL Total Bilirubin (0.2-1.3) mg/dL AST (17-59) U/L ALT (6-50) U/L Alkaline Phosphatase (38-126) U/L Total Creatine Kinase (55-170) U/L C-Reactive Protein (<1.0) mg/dL Total Protein (6.3-8.2) g/dL Albumin (3.5-5.1) g/dL Urine Color (Yellow) Urine Appearance (Clear) Urine pH (5.0-9.0) Ur Specific [place] (1.001-1.035) Urine Protein (Negative) mg/dL Urine Glucose (UA) (Negative) mg/dL Urine Ketones (Negative) mg/dL Ur Blood (Man) (Negative) Urine Nitrate (Negative) Urine Bilirubin (Negative) Urine Urobilinogen (<2.0) mg/dL Add Ur Microanalysis Leukocyte Esterase Rfl (Negative) GERARDO/UL Urine RBC (0-2) /hpf Urine WBC (0-3) /hpf Ur Squamous Epith Cells (Few) /hpf Urine Bacteria /hpf Urine Casts Hyaline Casts (None) /lpf Urine Mucus /lpf Syphilis IgG/IgM Ab Non-reactive (Nonreactive) HSV I DNA PCR Pending HSV II DNA PCR Pending Imaging Data Attestation: I personally reviewed and interpreted this imaging study as follows: My impression: Impressions Chest X-Ray 05/19/25 23:25 IMPRESSION: No focal infiltrate or effusion. No acute CT head findings, left opacity consistent with aspiration, sacral wounds without any abscess formation but signs of cellulitis. Critical Care Time Critical Care Time Critical Care Time: Yes Total Critical Care Time: 35 Discharge Plan Discharge Clinical Impression: Adult failure to thrive, Generalized weakness, Aspiration pneumonia, Cellulitis of sacral region, Acute hyperkalemia, Acute kidney injury Patient Disposition: Still a Patient Condition: Stable
[2025-05-19] MEDS: LACTATED RINGERS 1,000 ML 999 ML IV CONT ×2 (22:24)
--- OUTSIDE RECORDS SUMMARY | 2025-05-19 22:26 | XMS_ITS | Clinical Summary ---
Author Organization [facility] Address [address] [place] [id number] Care Team Providers Care Housing Manager Name Role Phone Unavailable Primary Care Provider Unavailabl e Social History Tobacco Use Types Packs/Day Years Used Date Smoking Tobacco: Never Assessed Sex and Gender Information Value Date Recorded Sex Assigned at Not on file Legal Sex Male 7:13 PM CDT Gender Identity Not on file Sexual Orientation Not on file Plan of Treatment Health Maintenance Due Date Last Done Comments Hepatitis C 1963 DTaP, Tdap and Td Vaccines ( 1 - Tdap) 1964 Pneumococcal Vaccine: 50+ Ye ars (1 of 1 - PCV) 1995 Zoster Vaccines (1 of 2) 1995 RSV Immunization or 60+ Years (1 - 1-dose 75+ series) 2020 COVID-19 Vaccine ( - 2023-2 5 season) 2024 Meningococcal B Vaccine Aged Out No l onger eligible based on patient's age to complete this topic Meningococcal Vaccine Aged Out No titus janette eligible based on patient's age to complete this topic RSV Immunizations Under 20 Months Aged Out No longer eligible based on patient's age to complete this topic
--- OUTSIDE RECORDS SUMMARY | 2025-05-19 22:26 | XMS_ITS | Clinical Summary ---
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 Name Role Phone Unavailable Primary Care Provider Unavailabl e Active Problems Problem Noted Date Diagnosed Date Acute kidney failure 11/27/2014 Essential (primary) hypertension 11/27/2014 Family History Medical History Relation Comments Family history unknown Relative Relation Status Comments Relative Social History Tobacco Use Types Packs/Day Years Used Date Smoking Tobacco: Never Assessed Sex and Gender Information Value Date Recorded Sex Assigned at Not on file Legal Sex Male 9:28 AM MST Gender Identity Not on file Sexual Orientation Not on file Last Filed Vital Signs Vital Sign Reading Time Taken Comments Blood Pressure 100/40 11/27/2014 12:01 AM DENTAL LABORATORY TECHNOLOGY TEACHER Pulse 72 11/27/2014 12:01 AM DENTAL LABORATORY TECHNOLOGY TEACHER Temperature 35.2 C (95.4 F) 11/27/2014 12:01 AM DENTAL LABORATORY TECHNOLOGY TEACHER Respiratory Rate - - Oxygen Saturation - - Inhaled Oxygen Concentration - - Weight 85.7 kg (189 lb) 11/27/2014 12:01 AM DENTAL LABORATORY TECHNOLOGY TEACHER Height 165.1 cm (5' 5) 11/27/2014 12:01 AM DENTAL LABORATORY TECHNOLOGY TEACHER Body Mass Index 31.45 11/27/2014 12:01 AM DENTAL LABORATORY TECHNOLOGY TEACHER Plan of Treatment Not on file
--- OUTSIDE RECORDS SUMMARY | 2025-05-19 22:26 | XMS_ITS | Clinical Summary ---
Author Organization [facility] Address [address] [place] [address] Care Team Providers Care Chain Saw Mechanic Name Role Phone Unavailable Primary Care Provider Unavailabl e Allergies No known active allergies Medications PARoxetine HCl (PAXIL) 20 mg tablet Take 3 Tablets by mouth 2 times daily. 08/12/2017 Active predniSONE (DELTASONE) 20 mg tablet Take 3 Tablets (60 mg) by mouth 2 times daily with meals. 84 Tablet 3 09/30/2017 Active Active Problems Problem Noted Date Diagnosed Date Acute idiopathic thrombocytopenic purpura 2016 Family History Medical History Relation Name Comments No Known Problems Brother Diabetes Father Diabetes Mother Relation Name Status Comments Brother Alive Father Mother Social History Tobacco Use Types Packs/Day Years Used Date Smoking Tobacco: Former Cigarettes Q uit: 1986 Smokeless Tobacco: Never Tobacco Cessation:Counseling Given: Yes Alcohol Use Standard Drinks/Week Comments No 0 (1 standard drink = 0.6 oz pur e alcohol) Sex and Gender Information Value Date Recorded Sex Assigned at Not on file Legal Sex Male 2:19 PM QUALITY WORKER Gender Identity Not on file Sexual Orientation Not on file Last Filed Vital Signs Vital Sign Reading Time Taken Comments Blood Pressure 122/77 09/30/2017 1:26 PM QUALITY WORKER Pulse 102 09/30/2017 1:26 PM QUALITY WORKER Temperature 36.6 C (97.8 F) 09/30/2017 1:26 PM QUALITY WORKER Respiratory Rate 18 09/30/2017 1:26 PM QUALITY WORKER Oxygen Saturation 92% 09/21/2017 2:08 PM QUALITY WORKER Inhaled Oxygen Concentration - - Weight 100.2 kg (221 lb) 09/30/2017 1:26 PM QUALITY WORKER Height 162.6 cm (5' 4) 09/30/2017 1:26 PM QUALITY WORKER Body Mass Index 37.93 09/30/2017 1:26 PM QUALITY WORKER Plan of Treatment Health Maintenance Due Date Last Done Comments DTAP/TDAP/TD VACCINES (1 - Tdap) 1964 PNEUMOCOCCAL VACCINE 50+ YEARS (1 of 1 - PCV) 10/05/18 96 ZOSTER VACCINE (1 of 2) 1995 RSV VACCINE (60+ or ) (1 - 1-dose 75+ series) 2020 INFLUENZA VACCINE (#1) 2025 Insurance MEDICARE PART B
--- NOTE | 2025-05-19 22:37 | PC.NURSE ---
1st set of blood cultures obtained with iv start 18g rac using kurin device and multiple chg swabs.
[2025-05-19 22:43] LABS: Hematocrit 50.3 % (42.0-52.0); Hemoglobin 15.9 g/dL (14.0-18.0); Immature Granulocyte Percent A 0.3 % (0-0.5); Lymphocytes Absolute Auto 0.78 K/mm3 (0.9-3.2); Mean Corpuscular HGB Conc 31.6 g/dl (32-36); Mean Corpuscular Hemoglobin 28.3 pg (26-34); Mean Corpuscular Volume 89.5 fl (80-100); Nucleated Red Blood Cells Absolute Auto 0.000 K/mm3 (0.0-0.012); Nucleated Red Blood Cells Perc 0.0 % (0.0-0.2); Platelet Count Result 179 k/mm3 (150-375); Red Blood Count 5.62 M/mm3 (4.6-6.20); White Blood Count 9.7 K/mm3 (4.5-10.0)
[2025-05-19 22:55] LABS: INR 1.3; Prothrombin Time 16.0 Seconds (11.1-14.7)
[2025-05-19 22:56] LABS: Creatine Kinase 52 U/L (55-170); Partial Thromboplastin Time 31.3 Seconds (22.3-36.8)
[2025-05-19 22:57] LABS: Alanine Aminotransferase 20 U/L (6-50); Albumin Level 4.1 g/dL (3.5-5.1); Alkaline Phosphatase 95 U/L (38-126); Anion Gap 19 mmol/L (4-12); Aspartate Amino Transferase 33 U/L (17-59); Bilirubin,Total 1.0 mg/dL (0.2-1.3); Blood Urea Nitrogen 32 mg/dL (9-20); Calcium 9.2 mg/dL (8.4-10.2); Carbon Dioxide 15 mmol/L (22-30); Chloride 101 mmol/L (98-107); Estimated CRCL calculation 34 ml/min; Estimated Glomerular Filt Rate 56; Glucose 95 mg/dL (65-110); Potassium 5.3 mmol/L (3.4-5.0); Sodium 135 mmol/L (137-145); Total Protein 7.2 g/dL (6.3-8.2)
[2025-05-20] VITALS (11 sets, daily range): BP systolic 103–144; BP diastolic 46–72; PULSE 74–98; RESP 18–20; TEMP 36.7–36.9; O2SAT 96–100; BMI 21.9
[2025-05-20 00:09] LABS: Add Urine Microscopic? YES; Appearance Urine Clear (Clear); Glucose Urine UA Negative (Negative); Leukocyte Esterase Ur Negative LEU/UL (Negative); Need Manual Microscopic Reviewed; Nitrate Urine Negative (Negative); Specific Grav Ur 1.026 (1.001-1.035)
[2025-05-20 00:19] LABS: CRP 10.3 mg/dL (<1.0)
[2025-05-20] MEDS: CALCIUM GLUCONATE 1,000 MG/10 ML VIAL 1000 MG IV PUSH (00:23)
[2025-05-20] MEDS: SODIUM ZIRCONIUM CYCLOSILICATE 10 GM POWD.PACK PO (00:23)
[2025-05-20] MEDS: VANCOMYCIN 1,500 MG/NS 500 ML 1,500 MG/500 ML BAG 250 MG IVPB (00:24)
[2025-05-20 01:30] LABS: Syphilis IgG/IgM Antibody Non-Reactive (Nonreactive)
[2025-05-20] MEDS: cefTRIAXone 1 GM in SODIUM CHLORIDE 0.9% IV 50 ML 100 ML IVPB (03:42)
[2025-05-20] MEDS: metroNIDAZOLE 500 MG/ISO 100ML 500 MG/100 ML BAG 100 MG IVPB (04:09)
--- NOTE | 2025-05-20 04:53 | PM.IMHP ---
H&P: HPI History of Present Illness Date/Time: 05/20/25 04:53 Chief Complaint: Weakness found on floor Narrative: This is a 79-year-old male patient with past medical history of hypertension, intellectual disability anxiety anemia, hypertension, coronary artery disease status post MS status post PCI to the LAD in 2019 and sleep apnea who presents to the emergency room after EMS was called by patient's sibling as he was noted to be lying in the floor in front of the toilet and was weak. Patient resides in a correction and although high function is currently unable to care for himself. Patient with transient orientation. Patient was alert oriented x2 for ER staff, he is alert and oriented to self only for me. Upon arrival to ER he was noted to be wearing 3 pairs of socks, had on four shirts and wearing 4 pairs of pants. In the emergency room a workup was performed that showed unremarkable vital signs, normal CBC and metabolic panel showing some renal insufficiency with creatinine 1.25 and BUN of 32 and a noted potassium of 5.3 that patient received calcium and Lokelma 4. Coags are unremarkable. Lactic acid was initially 4.2. After IV hydration this decreased to normal. CK was noted to be 52. 3+ ketones present in the urine supporting dehydration. Blood cultures x2 are pending. CRP 10.3. Secondary to the amount wounds and sores in a scattered pattern all over the body a syphilis test was performed that was nonreactive. HSV 1 and [address] head was without any acute findings. CT abdomen pelvis showed a thickened bladder wall, however this is not reflected and urinalysis. CT scan abdomen and pelvis showing left basilar opacities consistent with an aspiration pneumonia although chest x-ray was clear of any acute abnormalities. There is also stranding around the area of the buttocks without any abscess formation. Patient has multiple areas of breakdown all over his backside. Patient was started on antibiotics of vancomycin, Rocephin and Flagyl and is being admitted in current setting for placement. Review of Systems Review of Systems: ROS unobtainable: Yes unobtainable due to mental status [facility] Past Medical History Medical History (Updated 05/20/25 @ 05:02 by RACHEL Skinner) Lactic acidosis Hyperkalemia Self-care deficit Intellectual disability Hydrocephalus Anxiety Hyperlipidemia Noted in previous records. Not currently on medication. Hypertension Noted in previous records. Not currently on medication. Obstructive sleep apnea Noted in previous records. He does not use a CPAP. Coronary artery disease STEMI in fall 2018 status post PCI to the LAD. Surgical History Surgical History History of esophagogastroduodenoscopy History of appendectomy History of cardiac catheterization (2018) Fall 2018: PCI to the LAD done at [place]. 07/11/2019: Balloon angioplasty to the distal terminal LAD. Family History Family History Other Diabetes mellitus Social History Social History Social History: Surrogate decision maker: Boni Flores, brother. Code status: Full code. Smoking status: Never smoker Alcohol intake: never Substance use: never Substance use type: does not use Do You Feel Safe in your Home?: Yes Lack of Transportation: No Lack of Food: Never True Current Housing: I Have Housing Concerned About Future Housing: No Difficulty Paying Gas/Electric Bills: Decline to Answer Difficulty Paying for Meds: Decline to Answer Currently Unemployed: Decline to Answer Education: Decline to Answer Difficulty w/ Childcare or Family Care: No Living arrangements: with family Additional living arrangements comments: The patient lives with his brother in [place]. Spiritual care concerns: No Meds Home Medications and Allergies Home Medications ?Medication ?Instructions ?Recorded ?Confirmed ?Type amoxicillin 875 mg-potassium 1 tablet PO Q12H #2 tabs 03/09/24 Rx clavulanate 125 mg tablet Allergies Allergy/AdvReac Type Severity Reaction Status Date / Time No Known Allergies Allergy Verified 08/31/17 15:07 Vital Signs Vital Signs - 24 hr 05/19/25 22:03 05/19/25 22:17 05/20/25 00:17 Temperature 99.1 F Pulse Rate 86 84 97 Respiratory Rate 16 20 Blood Pressure 126/71 131/69 Pulse Oximetry 100 99 Oxygen Delivery Room Air 05/20/25 02:21 Temperature Pulse Rate 98 Respiratory Rate 20 Blood Pressure 144/72 H Pulse Oximetry 100 Oxygen Delivery Exam Const: General: comfortable Other: Confused, elderly male patient with fall odor and appearing poorly kempt. HENMT: Mouth: Yes dry mucous membranes Other: Multiple areas of decayed dentition throughout the oropharynx. Eyes: General: appearance normal, both eyes and all related structures Sclera: sclerae normal Neck: Neck: supple and no JVD Lymphatic: lymphadenopathy not noted Resp: Effort & Inspection: normal respiratory effort Auscultation: rhonchi (Bases bilateral) Cardio: Rate: regular rate Rhythm: regular rhythm Heart sounds: no gallops, no murmurs and no rubs GI: GI Palp: Yes Soft to palpation and No Tenderness to palpation present (GI) Auscultation: normal bowel sounds : Other: Catheter placed Urinary Catheter: Urinary Catheter: patent and draining and urine clear Skin: General skin exam: rashes and/or lesions noted Lesions: lesion noted (Scattered sores in perineal area) Wounds: wounds noted (Buttocks, scrotum, toe) Other: Patient with multiple wounds, there is maceration and excoriation present to the entire perineal and buttock regions. Left great toe with cracked nail and drainage. Skin appears overall dirty. Neuro: Speech: normal speech Motor exam (neuro): Abnormal motor strength present (Generalized weakness) Extrem: General: normal to inspection, no edema and no pedal edema Psych: Affect: normal affect Other: Alert and oriented to self. H&P: Results Labs Labs: Short CBC 05/19/25 Range/Units 22:37 WBC 9.7 (4.5-10.0) K/mm3 Hgb 15.9 (14.0-18.0) g/dL Hct 50.3 (42.0-52.0) % Plt Count 179 (150-375) k/mm3 BMP 05/19/25 22:37 Sodium 135 L Potassium 5.3 H Chloride 101 Carbon Dioxide 15 L BUN 32 H D Creatinine 1.25 Glucose 95 Calcium 9.2 Cardiac Enzymes 05/19/25 Range/Units 22:37 Total Creatine Kinase 52 L (55-170) U/L Liver Function 05/19/25 Range/Units 22:37 Total Bilirubin 1.0 (0.2-1.3) mg/dL AST 33 (17-59) U/L ALT 20 (6-50) U/L Alkaline Phosphatase 95 (38-126) U/L Albumin 4.1 (3.5-5.1) g/dL Urine 05/19/25 Range/Units 23:26 Urine Color Yellow (Yellow) Urine Appearance Clear (Clear) Urine pH 5.5 (5.0-9.0) Ur Specific [place] 1.026 (1.001-1.035) Urine Protein Trace (Negative) mg/dL Urine Glucose (UA) Negative (Negative) mg/dL Assessment and Plan Assessment and plan (1) Self-care deficit: Code(s): Z78.9 - Other specified health status Status: Acute Assessment and Plan: As evidenced by patient being found in apparent filth with dried stool and vomit present on multiple layers of clothing. Consult care coordination for placement discharge planning (2) Hyperkalemia: Code(s): E87.5 - Hyperkalemia Status: Acute Assessment and Plan: Most likely due to hemoconcentration. Potassium of 5.3 treated with Lokelma and calcium Repeat, monitor and trend labs IV fluids of LR at 100 mL/hour infusing. (3) Lactic acidosis: Code(s): E87.20 - Acidosis, unspecified Status: Acute Assessment and Plan: Initial lactic acid 4.2. After hydration patient's repeat lactic acid is 1.4. Blood cultures x2 pending Potential source of infection as seen in CT abdomen and pelvis with concern for aspiration in the base the left lung. Will order dedicated CT chest. Patient dosed with vancomycin, Rocephin and Flagyl. Monitor and trend (4) Aspiration pneumonia: Code(s): J69.0 - Pneumonitis due to inhalation of food and vomit Status: Acute Assessment and Plan: Continue vancomycin, Rocephin and Flagyl Dedicated chest imaging ordered. Quality VTE Prophylaxis VTE prophylaxis: pharmacologic ordered Hospitalist [facility] Advance Care Plan I have confirmed that the patient's Advanced Care Plan is present, code status is documented, or surrogate decision maker is listed in patient medical record.: Yes Medication Reconciliation I have utilized all available resources to obtain, update and review the patients current medications (includes all prescriptions, OTC, herbals, cannabis, and nutritional supplements).: Yes
--- NOTE | 2025-05-20 05:24 | ADMGEN ---
This patient, Eduardo Flores, was admitted to Medical Room 344-01. Patient/family oriented to hospital policies and general routines including ID bracelet, bed and alarms, visiting hours, pain management, procedures, bathroom and other care routines, personal items, smoking policy, room service/diet, and visiting hours. Information on how to activate the Rapid Response Team has been discussed. Patient/Family are encouraged to report perceived risks to care and to ask questions if they do not understand what they are told or what they should do.
--- NOTE | 2025-05-20 05:59 | WNDPHOTO ---
PHOTO ONLY - See Nursing Notes and/ or assessments for documentation.
--- NOTE | 2025-05-20 06:06 | WNDPHOTO ---
PHOTO ONLY - See Nursing Notes and/ or assessments for documentation.
[2025-05-20 06:51] LABS: Estimated CRCL calculation 41 ml/min; Estimated Glomerular Filt Rate > 60; Potassium 4.4 mmol/L (3.4-5.0)
[2025-05-20] MEDS: LACTATED RINGERS 1,000 ML 100 ML IV CONT (06:56)
--- OUTSIDE RECORDS SUMMARY | 2025-05-20 07:45 | XMS_ITS | Clinical Summary ---
Author Organization [facility] Address [address] [place] [id number] Phone Care Team Providers Care Redevelopment Specialist Name Role Phone Unavailable Primary Care Provider [...] Comments Blood Pressure 100/40 11/27/2014 12:01 AM ACCIDENT EXAMINER Pulse 72 11/27/2014 12:01 AM ACCIDENT EXAMINER Temperature 35.2 C (95.4 F) 11/27/2014 12:01 AM ACCIDENT EXAMINER Respiratory Rate - - Oxygen Saturation - - Inhaled Oxygen Concentration - - Weight 85.7 kg (189 lb) 11/27/2014 12:01 AM ACCIDENT EXAMINER Height 165.1 cm (5' 5) 11/27/2014 12:01 AM ACCIDENT EXAMINER Body Mass Index 31.45 11/27/2014 12:01 AM ACCIDENT EXAMINER Plan of Treatment Not on file
--- OUTSIDE RECORDS SUMMARY | 2025-05-20 07:45 | XMS_ITS | Clinical Summary ---
Author Organization [facility] Address [address] [place] [id number] Care Team Providers Care Fabric Pattern Grader Name Role Phone Unavailable Primary Care Provider [...]
--- OUTSIDE RECORDS SUMMARY | 2025-05-20 07:45 | XMS_ITS | Clinical Summary ---
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 Gender Identity Not on file Sexual Orientation Not on file Last Filed Vital Signs Vital Sign Reading Time Taken Comments Blood Pressure 122/77 09/30/2017 1:26 PM ULTRASONIC WELDING MACHINE OPERATOR Pulse 102 09/30/2017 1:26 PM ULTRASONIC WELDING MACHINE OPERATOR Temperature 36.6 C (97.8 F) 09/30/2017 1:26 PM ULTRASONIC WELDING MACHINE OPERATOR Respiratory Rate 18 09/30/2017 1:26 PM ULTRASONIC WELDING MACHINE OPERATOR Oxygen Saturation 92% 09/21/2017 2:08 PM ULTRASONIC WELDING MACHINE OPERATOR Inhaled Oxygen Concentration - - Weight 100.2 kg (221 lb) 09/30/2017 1:26 PM ULTRASONIC WELDING MACHINE OPERATOR Height 162.6 cm (5' 4) 09/30/2017 1:26 PM ULTRASONIC WELDING MACHINE OPERATOR Body Mass Index 37.93 09/30/2017 1:26 PM ULTRASONIC WELDING MACHINE OPERATOR Plan of Treatment Health Maintenance Due Date Last Done Comments DTAP/TDAP/TD VACCINES (1 - Tdap) 1964 PNEUMOCOCCAL VACCINE 50+ YEARS (1 of 1 - PCV) 10/05/18 96 ZOSTER VACCINE (1 of 2) 1995 RSV VACCINE (60+ or ) (1 - 1-dose 75+ series) 2020 INFLUENZA VACCINE (#1) 2025 Insurance MEDICARE PART B
[2025-05-20 07:47] LABS: Anion Gap 17 mmol/L (4-12); Blood Urea Nitrogen 24 mg/dL (9-20); Calcium 8.8 mg/dL (8.4-10.2); Carbon Dioxide 16 mmol/L (22-30); Chloride 101 mmol/L (98-107); Glucose 87 mg/dL (65-110); Sodium 134 mmol/L (137-145)
--- NOTE | 2025-05-20 08:55 | PC.NURSE ---
I attempted to call patient's brother at this time to try and get information for his admission. He did not answer and does not have a voicemail box set up. I will try to call him again in an hour.
[2025-05-20] MEDS: ENOXAPARIN 40 MG/0.4 ML SYRINGE SUB-Q (09:42)
--- NOTE | 2025-05-20 10:14 | PC.NURSE ---
I was able to speak with patient's brother at this time who stated Eduardo takes no home medications and they live in an apartment together unaffiliated with [place].
--- NOTE | 2025-05-20 11:51 | P.PNIM_ITS ---
Progress Note: A&P Assessment and Plan (1) CAP (community acquired pneumonia): Code(s): J18.9 - Pneumonia, unspecified organism Status: Acute Assessment and Plan: No clear hx or sign of aspiration at this time Check MRSA PCR and urine antigens for pneumococcus and legionella Treat with ceftriaxone and azithromycin as no evidence of abscess (2) Self-care deficit: Code(s): Z78.9 - Other specified health status Status: Acute Assessment and Plan: * As evidenced by patient being found in apparent filth with dried stool and vomit present on multiple layers of clothing. * He may qualify for SNF or rehab due to debility and need for wound care * Care coordination consulted (3) Hyperkalemia: Code(s): E87.5 - Hyperkalemia Status: Acute Assessment and Plan: * Most likely due to hemoconcentration. * Potassium of 5.3 treated with Lokelma and calcium by ED * 05/20: Eating well, so d/c IVF, f/u labs (4) Lactic acidosis: Code(s): E87.20 - Acidosis, unspecified Status: Acute Assessment and Plan: * Initial lactic acid 4.2. * After hydration patient's repeat lactic acid is 1.4. * Blood cultures x2 pending * Potential source of infection as seen in CT abdomen and pelvis with concern for aspiration in the base the left lung. * CT chest 05/19: Focal lung disease in mild in the dependent right middle lobe and more prominent at the basilar left lower lobe consistent with aspiration and/or pneumonia. Resolved (5) Poor personal hygiene: Code(s): R46.0 - Very low level of personal hygiene Status: Acute Assessment and Plan: Whether this is choice, mental illness, or dementia is difficult to determine at this time as he may be suffering from metabolic encephalopathy related to his pneumonia His brother, with whom he live, claims that the patient functions independently at baseline (6) Coronary artery disease: Code(s): I25.10 - Atherosclerotic heart disease of [place] coronary artery without angina pectoris Status: Acute Assessment and Plan: Resume ASA 81 mg daily Subjective Date/time seen: 05/20/25 11:51 Interval history: Ate well. No coughing or choking noted. No c/o of pain or sob. Still confused. Resides with brother in an independent living apartment. He has no seen a medical professional for several years. Review of Systems Review of Systems: ROS unobtainable: Yes unobtainable due to medical condition Exam Narrative: HEENT: PERRL, sclerae nonicteric, pharyngeal mucosa pink and intact NECK: No JVD CHEST: Coarse BS bilateral LL, NL effort HEART: NL S1/S2, regular, no murmur ABDOMEN: BS+, soft, nontender, no mass, no bruits EXTREMITIES: No cyanosis, edema, or clubbing NEUROLOGIC: CN intact and symmetric to inspection MUSCULOSKELETAL: Tone and strength symmetric PSYCH: Alert. Oriented to person only SKIN: Maceration over buttocks, right toe, healing lesions in groin Skin: Wounds: wounds noted (Buttocks, scrotum, toe) Objective Data Vital Signs Vital Signs: Vital Signs - 24 hr 05/19/25 22:03 05/19/25 22:17 05/20/25 00:17 Temperature 99.1 F Pulse Rate 86 84 97 Respiratory Rate 16 20 Blood Pressure 126/71 131/69 Pulse Oximetry 100 99 Oxygen Delivery Room Air 05/20/25 02:21 05/20/25 05:21 05/20/25 06:59 Temperature 98.5 F Pulse Rate 98 79 74 Respiratory Rate 20 19 Blood Pressure 144/72 H 118/64 133/62 Pulse Oximetry 100 100 100 Oxygen Delivery Intake/Output Intake/Output: Intake & Output 05/17/25 05/18/25 05/19/25 05/20/25 23:59 23:59 23:59 23:59 Intake Total 1999 1130 Output Total 500 Balance 1999 630 Meds/Results Medications: Active Medications Generic Name Dose Route Start Last Admin Trade Name Freq PRN Reason Stop Dose Admin Acetaminophen 650 mg 05/20/25 03:24 Acetaminophen 325 Mg Tablet PO Q4H PRN Mild Pain (1-3) or Fever Enoxaparin Sodium 40 mg 05/20/25 09:00 05/20/25 09:42 Enoxaparin 40 Mg/0.4 Ml Syringe SUB-Q 40 mg DAILY MARIEL Administration Lactated Ringer's 1,000 mls @ 100 mls/hr 05/20/25 03:25 05/20/25 06:56 Lr - Lactated Ringers Iv IV CONT 100 mls/hr .Q10H MARIEL Administration Ceftriaxone Sodium 1 gm/ 50 mls @ 100 mls/hr 05/21/25 04:00 Sodium Chloride IVPB Q24H MARIEL Metronidazole 500 mg in 100 mls @ 100 mls/hr 05/20/25 12:00 Flagyl 500 Mg/Iso Soln 100 Ml IVPB Q8HR MARIEL Vancomycin HCl 1,000 mg/ 250 mls @ 250 mls/hr 05/21/25 00:00 Sodium Chloride IVPB Q24H MARIEL Ondansetron HCl 4 mg 05/20/25 03:24 Ondansetron Inj 4 Mg/2 Ml Vial IV PUSH Q4H PRN Nausea Radiology Results: ITS Impressions Chest X-Ray 05/19/25 23:25 IMPRESSION: No focal infiltrate or effusion. Head CT 05/20/25 08:29 IMPRESSION: 1. No acute intracranial process. 2. Age-related changes including mild diffuse volume loss and moderate scattered white matter hypoattenuation consistent with chronic small vessel ischemic disease. Abdomen/Pelvis CT 05/20/25 09:39 IMPRESSION: 1. Tree-in-bud opacities in the dependent right middle lobe and at the basilar left lower lobe is also some focal consolidation consistent with aspiration and/or pneumonia. Chest CT 05/20/25 11:25 IMPRESSION: 1. Focal lung disease in mild in the dependent right middle lobe and more prominent at the basilar left lower lobe consistent with aspiration and/or pneumonia. Labs Labs: Laboratory Results - last 24 hr 05/19/25 05/19/25 05/19/25 22:37 22:38 23:26 WBC 9.7 RBC 5.62 Hgb 15.9 Hct 50.3 MCV 89.5 MCH 28.3 MCHC 31.6 L RDW 13.1 Plt Count 179 MPV 9.7 Immature Gran % (Auto) 0.3 Neut % (Auto) 83.7 H Lymph % (Auto) 8.1 L [place] % (Auto) 6.6 Eos % (Auto) 1.0 Baso % (Auto) 0.3 Lymph # (Auto) 0.78 L [place] # (Auto) 0.6 Eos # (Auto) 0.1 Baso # (Auto) 0.0 Abs Immat Gran (auto) 0.03 Absolute Neuts (auto) 8.1 H Absolute Nucleated RBC 0.000 Nucleated RBC % 0.0 PT 16.0 H INR 1.3 APTT 31.3 Sodium 135 L Potassium 5.3 H Chloride 101 Carbon Dioxide 15 L Anion Gap 19 H BUN 32 H D Creatinine 1.25 Estim Creat Clear Calc 34 Estimated GFR 56 L Glucose 95 Lactic Acid 4.2 H* Calcium 9.2 Total Bilirubin 1.0 AST 33 ALT 20 Alkaline Phosphatase 95 Total Creatine Kinase 52 L C-Reactive Protein 10.3 H Total Protein 7.2 Albumin 4.1 Urine Color Yellow Urine Appearance Clear Urine pH 5.5 Ur Specific [place] 1.026 Urine Protein Trace Urine Glucose (UA) Negative Urine Ketones 3+ H Ur Blood (Man) Negative Urine Nitrate Negative Urine Bilirubin Negative Urine Urobilinogen 1.0 Add Ur Microanalysis Reviewed Leukocyte Esterase Rfl Negative Urine RBC 3-5 H Urine WBC 0-5 Ur Squamous Epith Cells Occasional Urine Bacteria None seen Urine Casts 11-20 Hyaline Casts Present Urine Mucus Present Syphilis IgG/IgM Ab 05/20/25 05/20/25 05/20/25 00:40 01:57 06:37 WBC RBC Hgb Hct MCV MCH MCHC RDW Plt Count MPV Immature Gran % (Auto) Neut % (Auto) Lymph % (Auto) [place] % (Auto) Eos % (Auto) Baso % (Auto) Lymph # (Auto) [place] # (Auto) Eos # (Auto) Baso # (Auto) Abs Immat Gran (auto) Absolute Neuts (auto) Absolute Nucleated RBC Nucleated RBC % PT INR APTT Sodium 134 L Potassium Chloride Carbon Dioxide Anion Gap BUN Creatinine Estim Creat Clear Calc Estimated GFR Glucose Lactic Acid 1.4 Calcium Total Bilirubin AST ALT Alkaline Phosphatase Total Creatine Kinase C-Reactive Protein Total Protein Albumin Urine Color Urine Appearance Urine pH Ur Specific [place] Urine Protein Urine Glucose (UA) Urine Ketones Ur Blood (Man) Urine Nitrate Urine Bilirubin Urine Urobilinogen Add Ur Microanalysis Leukocyte Esterase Rfl Urine RBC Urine WBC Ur Squamous Epith Cells Urine Bacteria Urine Casts Hyaline Casts Urine Mucus Syphilis IgG/IgM Ab Non-reactive 05/20/25 05/20/25 05/20/25 06:37 06:37 06:37 WBC RBC Hgb Hct MCV MCH MCHC RDW Plt Count MPV Immature Gran % (Auto) Neut % (Auto) Lymph % (Auto) [place] % (Auto) Eos % (Auto) Baso % (Auto) Lymph # (Auto) [place] # (Auto) Eos # (Auto) Baso # (Auto) Abs Immat Gran (auto) Absolute Neuts (auto) Absolute Nucleated RBC Nucleated RBC % PT INR APTT Sodium Cancelled Potassium 4.4 Cancelled Chloride 101 Cancelled Carbon Dioxide 16 L Anion Gap BUN Creatinine Estim Creat Clear Calc Estimated GFR Glucose Lactic Acid Calcium Total Bilirubin AST ALT Alkaline Phosphatase Total Creatine Kinase C-Reactive Protein Total Protein Albumin Urine Color Urine Appearance Urine pH Ur Specific [place] Urine Protein Urine Glucose (UA) Urine Ketones Ur Blood (Man) Urine Nitrate Urine Bilirubin Urine Urobilinogen Add Ur Microanalysis Leukocyte Esterase Rfl Urine RBC Urine WBC Ur Squamous Epith Cells Urine Bacteria Urine Casts Hyaline Casts Urine Mucus Syphilis IgG/IgM Ab 05/20/25 05/20/25 05/20/25 06:37 06:37 06:37 WBC RBC Hgb Hct MCV MCH MCHC RDW Plt Count MPV Immature Gran % (Auto) Neut % (Auto) Lymph % (Auto) [place] % (Auto) Eos % (Auto) Baso % (Auto) Lymph # (Auto) [place] # (Auto) Eos # (Auto) Baso # (Auto) Abs Immat Gran (auto) Absolute Neuts (auto) Absolute Nucleated RBC Nucleated RBC % PT INR APTT Sodium Potassium Chloride Carbon Dioxide Cancelled Anion Gap 17 H Cancelled BUN 24 H Cancelled Creatinine 1.00 Estim Creat Clear Calc Estimated GFR Glucose Lactic Acid Calcium Total Bilirubin AST ALT Alkaline Phosphatase Total Creatine Kinase C-Reactive Protein Total Protein Albumin Urine Color Urine Appearance Urine pH Ur Specific [place] Urine Protein Urine Glucose (UA) Urine Ketones Ur Blood (Man) Urine Nitrate Urine Bilirubin Urine Urobilinogen Add Ur Microanalysis Leukocyte Esterase Rfl Urine RBC Urine WBC Ur Squamous Epith Cells Urine Bacteria Urine Casts Hyaline Casts Urine Mucus Syphilis IgG/IgM Ab 05/20/25 05/20/25 05/20/25 06:37 06:37 06:37 WBC RBC Hgb Hct MCV MCH MCHC RDW Plt Count MPV Immature Gran % (Auto) Neut % (Auto) Lymph % (Auto) [place] % (Auto) Eos % (Auto) Baso % (Auto) Lymph # (Auto) [place] # (Auto) Eos # (Auto) Baso # (Auto) Abs Immat Gran (auto) Absolute Neuts (auto) Absolute Nucleated RBC Nucleated RBC % PT INR APTT Sodium Potassium Chloride Carbon Dioxide Anion Gap BUN Creatinine Cancelled Estim Creat Clear Calc 41 Cancelled Estimated GFR > 60 Cancelled Glucose 87 Lactic Acid Calcium Total Bilirubin AST ALT Alkaline Phosphatase Total Creatine Kinase C-Reactive Protein Total Protein Albumin Urine Color Urine Appearance Urine pH Ur Specific [place] Urine Protein Urine Glucose (UA) Urine Ketones Ur Blood (Man) Urine Nitrate Urine Bilirubin Urine Urobilinogen Add Ur Microanalysis Leukocyte Esterase Rfl Urine RBC Urine WBC Ur Squamous Epith Cells Urine Bacteria Urine Casts Hyaline Casts Urine Mucus Syphilis IgG/IgM Ab 05/20/25 05/20/25 06:37 06:37 WBC RBC Hgb Hct MCV MCH MCHC RDW Plt Count MPV Immature Gran % (Auto) Neut % (Auto) Lymph % (Auto) [place] % (Auto) Eos % (Auto) Baso % (Auto) Lymph # (Auto) [place] # (Auto) Eos # (Auto) Baso # (Auto) Abs Immat Gran (auto) Absolute Neuts (auto) Absolute Nucleated RBC Nucleated RBC % PT INR APTT Sodium Potassium Chloride Carbon Dioxide Anion Gap BUN Creatinine Estim Creat Clear Calc Estimated GFR Glucose Cancelled Lactic Acid Calcium 8.8 Cancelled Total Bilirubin AST ALT Alkaline Phosphatase Total Creatine Kinase C-Reactive Protein Total Protein Albumin Urine Color Urine Appearance Urine pH Ur Specific [place] Urine Protein Urine Glucose (UA) Urine Ketones Ur Blood (Man) Urine Nitrate Urine Bilirubin Urine Urobilinogen Add Ur Microanalysis Leukocyte Esterase Rfl Urine RBC Urine WBC Ur Squamous Epith Cells Urine Bacteria Urine Casts Hyaline Casts Urine Mucus Syphilis IgG/IgM Ab
[2025-05-20] MEDS: AZITHROMYCIN 500 MG TABLET PO (12:54)
[2025-05-20 17:26] LABS: MRSA (PCR) NOT DETECTED (NOT DETECTE)
[2025-05-21] VITALS (10 sets, daily range): BP systolic 92–104; BP diastolic 54–58; PULSE 72–80; RESP 18; TEMP 36.4–36.9; O2SAT 98–99
[2025-05-21] MEDS: cefTRIAXone 1 GM in SODIUM CHLORIDE 0.9% IV 50 ML 100 ML IVPB (05:00)
[2025-05-21 06:09] LABS: Hematocrit 37.6 % (42.0-52.0); Hemoglobin 12.4 g/dL (14.0-18.0); Immature Granulocyte Percent A 0.3 % (0-0.5); Lymphocytes Absolute Auto 0.69 K/mm3 (0.9-3.2); Mean Corpuscular HGB Conc 33.0 g/dl (32-36); Mean Corpuscular Hemoglobin 28.3 pg (26-34); Mean Corpuscular Volume 85.8 fl (80-100); Nucleated Red Blood Cells Absolute Auto 0.000 K/mm3 (0.0-0.012); Nucleated Red Blood Cells Perc 0.0 % (0.0-0.2); Platelet Count Result 119 k/mm3 (150-375); Red Blood Count 4.38 M/mm3 (4.6-6.20); White Blood Count 3.9 K/mm3 (4.5-10.0)
[2025-05-21 06:32] LABS: Alanine Aminotransferase 7 U/L (6-50); Albumin Level 2.4 g/dL (3.5-5.1); Alkaline Phosphatase 66 U/L (38-126); Anion Gap 4 mmol/L (4-12); Aspartate Amino Transferase 19 U/L (17-59); Bilirubin,Total 0.3 mg/dL (0.2-1.3); Blood Urea Nitrogen 18 mg/dL (9-20); Calcium 7.6 mg/dL (8.4-10.2); Carbon Dioxide 23 mmol/L (22-30); Chloride 102 mmol/L (98-107); Estimated CRCL calculation 43 ml/min; Estimated Glomerular Filt Rate > 60; Glucose 108 mg/dL (65-110); Magnesium 1.9 mg/dL (1.6-2.3); Potassium 3.3 mmol/L (3.4-5.0); Sodium 129 mmol/L (137-145); Total Protein 5.0 g/dL (6.3-8.2)
[2025-05-21 07:00] LABS: Thyroid Stimulating Hormone Reflex 2.100 uIU/mL (0.465-4.68)
[2025-05-21] MEDS: AZITHROMYCIN 500 MG TABLET PO (09:17)
[2025-05-21] MEDS: ENOXAPARIN 40 MG/0.4 ML SYRINGE SUB-Q (09:18)
[2025-05-21] MEDS: ASPIRIN 81 MG ENTERIC TABLET PO (09:18)
[2025-05-21] MEDS: SODIUM CHLORIDE 0.9% IV 1,000 ML 100 ML IV CONT ×2 (09:25→20:55)
--- NOTE | 2025-05-21 11:14 | P.PNIM_ITS ---
Progress Note: A&P Assessment and Plan (1) CAP (community acquired pneumonia): Code(s): J18.9 - Pneumonia, unspecified organism Status: Acute Assessment and Plan: No clear hx or sign of aspiration at this time Check MRSA PCR and urine antigens for pneumococcus and legionella Treat with ceftriaxone and azithromycin as no evidence of abscess 05/21/25: * MRSA PCR urine antigen for pneumococcus and Legionella pending * Continue Rocephin and azithromycin. * Wean oxygen (2) Self-care deficit: Code(s): Z78.9 - Other specified health status Status: Acute Assessment and Plan: * As evidenced by patient being found in apparent filth with dried stool and vomit present on multiple layers of clothing. * He may qualify for SNF or rehab due to debility and need for wound care * Care coordination consulted 05/21/25: * As noted in HPI care coordination did reach out to brother who educated that they do not live in a residential but rather in senior apartments. Patient's brother states secondary to his brother's poor ability to care for himself with regards to proper hygiene etc. 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 (3) Hyponatremia: Code(s): E87.1 - Hypo-osmolality and hyponatremia Status: Acute Assessment and Plan: 05/21/25: * Fluids were discontinued yesterday. Patient's sodium today dropped to 129. Will restart normal saline at 100 mL/hour. * Obtain serum and urine osmolalities * Trend labs and vitals. (4) Impaired skin integrity: Code(s): R23.9 - Unspecified skin changes Status: Acute Assessment and Plan: 05/21/25: * See pictures in EMR. * Awaiting wound consult * Orders placed to turn patient q.2 hours (5) Hyperkalemia: Code(s): E87.5 - Hyperkalemia Status: Resolved Assessment and Plan: * Most likely due to hemoconcentration. * Potassium of 5.3 treated with Lokelma and calcium by ED * 05/20: Eating well, so d/c IVF, f/u labs 05/21/25: * Resolved with potassium 3.3 (6) Lactic acidosis: Code(s): E87.20 - Acidosis, unspecified Status: Acute Assessment and Plan: * Initial lactic acid 4.2. * After hydration patient's repeat lactic acid is 1.4. * Blood cultures x2 pending * Potential source of infection as seen in CT abdomen and pelvis with concern for aspiration in the base the left lung. * CT chest 05/19: Focal lung disease in mild in the dependent right middle lobe and more prominent at the basilar left lower lobe consistent with aspiration and/or pneumonia. * / Resolved (7) Poor personal hygiene: Code(s): R46.0 - Very low level of personal hygiene Status: Acute Assessment and Plan: Whether this is choice, mental illness, or dementia is difficult to determine at this time as he may be suffering from metabolic encephalopathy related to his pneumonia His brother, with whom he live, claims that the patient functions independently at baseline (8) Coronary artery disease: Code(s): I25.10 - Atherosclerotic heart disease of [place] coronary artery without angina pectoris Status: Chronic Assessment and Plan: Resume ASA 81 mg daily Time Spent With Patient Time with patient: 15 - 25 minutes Subjective Date/time seen: 05/21/25 11:14 Interval history: Pt examined at bedside and found to be in no acute distress. He is very [place] and it is difficult for him to understand me, but he verbalizes he feels well other than some pain in his buttock region where he has partial thickness wounds. He remains on Rocephin and Azithromycin for a suspected Aspiration PNA with stable VS. Care coordination has been in touch with brother who confirms and clarifies that they do not live at a residential, but rather senior apartments and he notes that the pt does not have good hygiene practices and wants him to go to a SNF at discharge if we can talk pt into it. Review of Systems Review of Systems: All systems reviewed & are unremarkable except as noted in HPI and below Exam Narrative: General: Very poorly kempt male pt sitting in bed at this time. Eating without difficulty. HEENT: Atraumatic/Normocephalic, MMM Respiratory: CTAB Cardiovascular: RRR, S1 and S2 present without S3, S4,m,r,g,h Abdomen: Soft, NT, BS+x4 Extremities: No cyanosis, clubbing, or edema present. Pulses are palpable 2/2. Active ROM to all four extremities. Neuro: A&Ox3. PERRLA. CN 2-12 intact without any focal deficit. Skin: Warm, partial thickness wounds to the buttocks, back of legs and appears red and warm. No active drainage. Psych: Pleasant, Normal affect and cooperative. Objective Data Vital Signs Vital Signs: Vital Signs - 24 hr 05/20/25 12:00 05/20/25 14:00 05/20/25 16:00 Temperature 98.1 F Pulse Rate 79 81 82 Respiratory Rate 20 Blood Pressure 103/46 L Pulse Oximetry 96 Oxygen Delivery 05/20/25 20:00 05/20/25 20:00 05/20/25 22:00 Temperature 98.0 F Pulse Rate 76 79 Respiratory Rate 18 Blood Pressure 109/47 L Pulse Oximetry 97 Oxygen Delivery Room Air 05/21/25 00:00 05/21/25 04:00 05/21/25 06:00 Temperature 97.5 F L Pulse Rate 74 72 72 Respiratory Rate 18 Blood Pressure 92/58 L Pulse Oximetry 98 Oxygen Delivery Intake/Output Intake/Output: Intake & Output 05/18/25 05/19/25 05/20/25 05/21/25 23:59 23:59 23:59 23:59 Intake Total 1999 3190 480 Output Total 1100 350 Balance 19990 130 Meds/Results Medications: Active Medications Generic Name Dose Route Start Last Admin Trade Name Freq PRN Reason Stop Dose Admin Acetaminophen 650 mg 05/20/25 03:24 Acetaminophen 325 Mg Tablet PO Q4H PRN Mild Pain (1-3) or Fever Aspirin 81 mg 05/21/25 09:00 05/21/25 09:18 Aspirin 81 Mg Enteric Tablet PO 81 mg QAM MARIEL Administration Azithromycin 500 mg 05/20/25 12:20 05/21/25 09:17 Azithromycin 500 Mg Tablet PO 500 mg DAILY MARIEL Administration Enoxaparin Sodium 40 mg 05/20/25 09:00 05/21/25 09:18 Enoxaparin 40 Mg/0.4 Ml Syringe SUB-Q 40 mg DAILY MARIEL Administration Ceftriaxone Sodium 1 gm/ 50 mls @ 100 mls/hr 05/21/25 04:00 05/21/25 05:00 Sodium Chloride IVPB 100 mls/hr Q24H MARIEL Administration Sodium Chloride 1,000 mls @ 100 mls/hr 05/21/25 07:15 05/21/25 09:25 Normal Saline Iv IV CONT 100 mls/hr .Q10H MARIEL Administration Radiology Results: ITS Impressions Chest X-Ray 05/19/25 23:25 IMPRESSION: No focal infiltrate or effusion. Head CT 05/20/25 08:29 IMPRESSION: 1. No acute intracranial process. 2. Age-related changes including mild diffuse volume loss and moderate scattered white matter hypoattenuation consistent with chronic small vessel ischemic disease. Abdomen/Pelvis CT 05/20/25 09:39 IMPRESSION: 1. Tree-in-bud opacities in the dependent right middle lobe and at the basilar left lower lobe is also some focal consolidation consistent with aspiration and/or pneumonia. Chest CT 05/20/25 11:25 IMPRESSION: 1. Focal lung disease in mild in the dependent right middle lobe and more prominent at the basilar left lower lobe consistent with aspiration and/or pneumonia. Labs Labs: Laboratory Results - last 24 hr 05/20/25 05/21/25 15:56 05:59 WBC 3.9 L RBC 4.38 L Hgb 12.4 L D Hct 37.6 L MCV 85.8 MCH 28.3 MCHC 33.0 RDW 13.0 Plt Count 119 L MPV 9.7 Immature Gran % (Auto) 0.3 Neut % (Auto) 66.8 Lymph % (Auto) 17.7 L [place] % (Auto) 12.1 H Eos % (Auto) 2.6 Baso % (Auto) 0.5 Lymph # (Auto) 0.69 L [place] # (Auto) 0.5 Eos # (Auto) 0.1 Baso # (Auto) 0.0 Abs Immat Gran (auto) 0.01 Absolute Neuts (auto) 2.6 Absolute Nucleated RBC 0.000 Nucleated RBC % 0.0 Sodium 129 L Potassium 3.3 L Chloride 102 Carbon Dioxide 23 Anion Gap 4 BUN 18 Creatinine 1.00 Estim Creat Clear Calc 43 Estimated GFR > 60 Glucose 108 Lactic Acid 0.7 Calcium 7.6 L Magnesium 1.9 Total Bilirubin 0.3 AST 19 ALT 7 Alkaline Phosphatase 66 Total Protein 5.0 L Albumin 2.4 L TSH (Reflex) 2.100 Nasal MRSA (PCR) Not detected Quality VTE Prophylaxis VTE prophylaxis: pharmacologic ordered
[2025-05-22] VITALS (7 sets, daily range): BP systolic 93–126; BP diastolic 50–77; PULSE 72–77; RESP 18; TEMP 36.2–37.1; O2SAT 99–100; BMI 21.9
[2025-05-22] MEDS: SODIUM CHLORIDE 0.9% IV 1,000 ML 100 ML IV CONT (05:13)
[2025-05-22] MEDS: cefTRIAXone 1 GM in SODIUM CHLORIDE 0.9% IV 50 ML 100 ML IVPB (05:13)
[2025-05-22] MEDS: ENOXAPARIN 40 MG/0.4 ML SYRINGE SUB-Q (09:08)
[2025-05-22] MEDS: ASPIRIN 81 MG ENTERIC TABLET PO (09:10)
[2025-05-22] MEDS: AZITHROMYCIN 500 MG TABLET PO (09:10)
--- NOTE | 2025-05-22 13:51 | P.PNIM_ITS ---
Progress Note: A&P Assessment and Plan (1) CAP (community acquired pneumonia): Code(s): J18.9 - Pneumonia, unspecified organism Status: Acute Assessment and Plan: No clear hx or sign of aspiration at this time Check MRSA PCR which came back negative and urine antigens for pneumococcus and legionella pending Treat with ceftriaxone and azithromycin as no evidence of abscess Wean oxygen as tolerated (2) Self-care deficit: Code(s): Z78.9 - Other specified health status Status: Acute Assessment and Plan: * As evidenced by patient being found in apparent filth with dried stool and vomit present on multiple layers of clothing. * He may qualify for SNF or rehab due to debility and need for wound care * Care coordination consulted for placement (3) Hyponatremia: Code(s): E87.1 - Hypo-osmolality and hyponatremia Status: Acute Assessment and Plan: Mild. Recheck and monitor Currently on normal saline at 100 cc an hour Will stop that (4) Impaired skin integrity: Code(s): R23.9 - Unspecified skin changes Status: Acute Assessment and Plan: * See pictures in EMR. * Awaiting wound consult * Orders placed to turn patient q.2 hours (5) Hyperkalemia: Code(s): E87.5 - Hyperkalemia Status: Resolved Assessment and Plan: * Most likely due to hemoconcentration. * Potassium of 5.3 treated with Lokelma and calcium by ED * Continue to monitor (6) Lactic acidosis: Code(s): E87.20 - Acidosis, unspecified Status: Acute Assessment and Plan: * Initial lactic acid 4.2. * After hydration patient's repeat lactic acid is 1.4. * Blood cultures x2 no growth to date * Potential source of infection as seen in CT abdomen and pelvis with concern for aspiration in the base the left lung. * CT chest 05/19: Focal lung disease in mild in the dependent right middle lobe and more prominent at the basilar left lower lobe consistent with aspiration and/or pneumonia. * 05/20 Resolved (7) Poor personal hygiene: Code(s): R46.0 - Very low level of personal hygiene Status: Acute Assessment and Plan: Whether this is choice, mental illness, or dementia is difficult to determine at this time as he may be suffering from metabolic encephalopathy related to his pneumonia His brother, with whom he live, claims that the patient functions independently at baseline (8) Coronary artery disease: Code(s): I25.10 - Atherosclerotic heart disease of [place] coronary artery without angina pectoris Status: Chronic Assessment and Plan: Resume ASA 81 mg daily Plan PT OT to see potential placement labs pending at this time Subjective Date/time seen: 05/22/25 13:51 Interval history: no overnight events, no new complaints. feels weak. not much cough. Review of Systems Review of Systems: All systems reviewed & are unremarkable except as noted in HPI and below Exam Narrative: General: Very poorly kempt male pt laying in bed not in acute distress HEENT: Atraumatic/Normocephalic, MMM Respiratory: CTAB Cardiovascular: RRR, S1 and S2 present without S3, S4,m,r,g,h Abdomen: Soft, NT, BS+x4 Extremities: No cyanosis, clubbing, or edema present. Pulses are palpable 2/2. Active ROM to all four extremities. Neuro: A&Ox3. PERRLA. CN 2-12 intact without any focal deficit. Skin: Warm, partial thickness wounds to the buttocks, back of legs and appears red and warm. No active drainage. Psych: Pleasant, Normal affect and cooperative. Objective Data Vital Signs Vital Signs: Vital Signs - 24 hr 05/21/25 14:00 05/21/25 16:00 05/21/25 20:00 Temperature 98.4 F Pulse Rate 78 77 Respiratory Rate 18 Blood Pressure 102/54 L Pulse Oximetry 98 98 Oxygen Delivery Room Air 05/21/25 20:00 05/21/25 22:00 05/22/25 00:00 Temperature 97.8 F Pulse Rate 75 74 74 Respiratory Rate 18 Blood Pressure 104/55 L Pulse Oximetry 99 Oxygen Delivery 05/22/25 04:00 05/22/25 06:00 05/22/25 11:44 Temperature 97.1 F L Pulse Rate 74 72 Respiratory Rate 18 Blood Pressure 107/77 Pulse Oximetry 100 Oxygen Delivery Room Air Intake/Output Intake/Output: Intake & Output 05/19/25 05/20/25 05/21/25 05/22/25 23:59 23:59 23:59 23:59 Intake Total 1999 3190 3590 1510 Output Total 1100 1150 1000 Balance 1999 9297 0672 510 Meds/Results Medications: Active Medications Generic Name Dose Route Start Last Admin Trade Name Julioq PRN Reason Stop Dose Admin Acetaminophen 650 mg 05/20/25 03:24 Acetaminophen 325 Mg Tablet PO Q4H PRN Mild Pain (1-3) or Fever Aspirin 81 mg 05/21/25 09:00 05/22/25 09:10 Aspirin 81 Mg Enteric Tablet PO 81 mg QAM MARIEL Administration Azithromycin 500 mg 05/20/25 12:20 05/22/25 09:10 Azithromycin 500 Mg Tablet PO 500 mg DAILY MARIEL Administration Enoxaparin Sodium 40 mg 05/20/25 09:00 05/22/25 09:08 Enoxaparin 40 Mg/0.4 Ml Syringe SUB-Q 40 mg DAILY MARIEL Administration Ceftriaxone Sodium 1 gm/ 50 mls @ 100 mls/hr 05/21/25 04:00 05/22/25 05:13 Sodium Chloride IVPB 100 mls/hr Q24H MARIEL Administration Sodium Chloride 1,000 mls @ 100 mls/hr 05/21/25 07:15 05/22/25 05:13 Normal Saline Iv IV CONT 100 mls/hr .Q10H MARIEL Administration Radiology Results: ITS Impressions Chest X-Ray 05/19/25 23:25 IMPRESSION: No focal infiltrate or effusion. Head CT 05/20/25 08:29 IMPRESSION: 1. No acute intracranial process. 2. Age-related changes including mild diffuse volume loss and moderate scattered white matter hypoattenuation consistent with chronic small vessel ischemic disease. Abdomen/Pelvis CT 05/20/25 09:39 IMPRESSION: 1. Tree-in-bud opacities in the dependent right middle lobe and at the basilar left lower lobe is also some focal consolidation consistent with aspiration and/or pneumonia. Chest CT 05/20/25 11:25 IMPRESSION: 1. Focal lung disease in mild in the dependent right middle lobe and more prominent at the basilar left lower lobe consistent with aspiration and/or pneumonia. Labs Labs: Laboratory Results - last 24 hr 05/20/25 15:56 Urine Pneumococcal Ag Cancelled
[2025-05-22 14:21] LABS: Hematocrit 36.1 % (42.0-52.0); Hemoglobin 11.8 g/dL (14.0-18.0); Immature Granulocyte Percent A 0.3 % (0-0.5); Lymphocytes Absolute Auto 0.65 K/mm3 (0.9-3.2); Mean Corpuscular HGB Conc 32.7 g/dl (32-36); Mean Corpuscular Hemoglobin 28.9 pg (26-34); Mean Corpuscular Volume 88.3 fl (80-100); Nucleated Red Blood Cells Absolute Auto 0.000 K/mm3 (0.0-0.012); Nucleated Red Blood Cells Perc 0.0 % (0.0-0.2); Platelet Count Result 103 k/mm3 (150-375); Red Blood Count 4.09 M/mm3 (4.6-6.20); White Blood Count 3.1 K/mm3 (4.5-10.0)
[2025-05-22 14:37] LABS: Alanine Aminotransferase 10 U/L (6-50); Albumin Level 2.3 g/dL (3.5-5.1); Alkaline Phosphatase 63 U/L (38-126); Anion Gap 2 mmol/L (4-12); Aspartate Amino Transferase 22 U/L (17-59); Bilirubin,Total 0.1 mg/dL (0.2-1.3); Blood Urea Nitrogen 13 mg/dL (9-20); Calcium 7.2 mg/dL (8.4-10.2); Carbon Dioxide 27 mmol/L (22-30); Chloride 101 mmol/L (98-107); Estimated CRCL calculation 53 ml/min; Estimated Glomerular Filt Rate > 60; Glucose 105 mg/dL (65-110); Magnesium 1.8 mg/dL (1.6-2.3); Potassium 3.4 mmol/L (3.4-5.0); Sodium 130 mmol/L (137-145); Total Protein 4.5 g/dL (6.3-8.2)
[2025-05-22] MEDS: POTASSIUM CHLORIDE 20 MEQ ER TABLET 40 MEQ PO (19:07)
[2025-05-23] VITALS: PULSE 76
[2025-05-23 04:00] VITALS: PULSE 70
[2025-05-23] MEDS: cefTRIAXone 1 GM in SODIUM CHLORIDE 0.9% IV 50 ML 100 ML IVPB (05:20)
[2025-05-23 05:48] LABS: Hematocrit 38.0 % (42.0-52.0); Hemoglobin 12.1 g/dL (14.0-18.0); Immature Granulocyte Percent A 0.6 % (0-0.5); Lymphocytes Absolute Auto 0.70 K/mm3 (0.9-3.2); Mean Corpuscular HGB Conc 31.8 g/dl (32-36); Mean Corpuscular Hemoglobin 28.2 pg (26-34); Mean Corpuscular Volume 88.6 fl (80-100); Nucleated Red Blood Cells Absolute Auto 0.000 K/mm3 (0.0-0.012); Nucleated Red Blood Cells Perc 0.0 % (0.0-0.2); Platelet Count Result 119 k/mm3 (150-375); Red Blood Count 4.29 M/mm3 (4.6-6.20); White Blood Count 3.6 K/mm3 (4.5-10.0)
[2025-05-23 06:00] VITALS: BP 103/44; PULSE 64; RESP 18; TEMP 36.2; O2SAT 100
[2025-05-23 06:09] LABS: Alanine Aminotransferase 11 U/L (6-50); Albumin Level 2.3 g/dL (3.5-5.1); Alkaline Phosphatase 60 U/L (38-126); Anion Gap 2 mmol/L (4-12); Aspartate Amino Transferase 29 U/L (17-59); Bilirubin,Total 0.2 mg/dL (0.2-1.3); Blood Urea Nitrogen 12 mg/dL (9-20); Calcium 7.5 mg/dL (8.4-10.2); Carbon Dioxide 25 mmol/L (22-30); Chloride 104 mmol/L (98-107); Estimated CRCL calculation 55 ml/min; Estimated Glomerular Filt Rate > 60; Glucose 92 mg/dL (65-110); Magnesium 1.9 mg/dL (1.6-2.3); Potassium 3.8 mmol/L (3.4-5.0); Sodium 131 mmol/L (137-145); Total Protein 4.8 g/dL (6.3-8.2)
[2025-05-23 08:00] VITALS: PULSE 69
--- NOTE | 2025-05-23 08:19 | P.PNIM_ITS ---
Progress Note: A&P Assessment and Plan (1) CAP (community acquired pneumonia): Code(s): J18.9 - Pneumonia, unspecified organism Status: Acute Assessment and Plan: No clear hx or sign of aspiration at this time Check MRSA PCR which came back negative and urine antigens for pneumococcus and legionella pending Treat with ceftriaxone and azithromycin as no evidence of abscess Wean oxygen as tolerated (2) Self-care deficit: Code(s): Z78.9 - Other specified health status Status: Acute Assessment and Plan: * As evidenced by patient being found in apparent filth with dried stool and vomit present on multiple layers of clothing. * He may qualify for SNF or rehab due to debility and need for wound care * Care coordination consulted for placement (3) Hyponatremia: Code(s): E87.1 - Hypo-osmolality and hyponatremia Status: Acute Assessment and Plan: Mild. Recheck and monitor Currently on normal saline at 100 cc an hour Will stop that Continue to monitor (4) Impaired skin integrity: Code(s): R23.9 - Unspecified skin changes Status: Acute Assessment and Plan: * See pictures in EMR. * Awaiting wound consult * Orders placed to turn patient q.2 hours (5) Hyperkalemia: Code(s): E87.5 - Hyperkalemia Status: Resolved Assessment and Plan: * Most likely due to hemoconcentration. * Potassium of 5.3 treated with Lokelma and calcium by ED * Continue to monitor (6) Lactic acidosis: Code(s): E87.20 - Acidosis, unspecified Status: Acute Assessment and Plan: * Initial lactic acid 4.2. * After hydration patient's repeat lactic acid is 1.4. * Blood cultures x2 no growth to date * Potential source of infection as seen in CT abdomen and pelvis with concern for aspiration in the base the left lung. * CT chest 05/19: Focal lung disease in mild in the dependent right middle lobe and more prominent at the basilar left lower lobe consistent with aspiration and/or pneumonia. * 05/20 Resolved (7) Poor personal hygiene: Code(s): R46.0 - Very low level of personal hygiene Status: Acute Assessment and Plan: Whether this is choice, mental illness, or dementia is difficult to determine at this time as he may be suffering from metabolic encephalopathy related to his pneumonia His brother, with whom he live, claims that the patient functions independently at baseline (8) Coronary artery disease: Code(s): I25.10 - Atherosclerotic heart disease of [place] coronary artery without angina pectoris Status: Chronic Assessment and Plan: Resume ASA 81 mg daily Plan PT OT to see needs placement. Awaiting placement Subjective Date/time seen: 05/23/25 08:19 Interval history: No new complaints feels weak. Wants to go home. Review of Systems Review of Systems: All systems reviewed & are unremarkable except as noted in HPI and below Exam Narrative: General: Very poorly kempt male pt laying in bed not in acute distress HEENT: Atraumatic/Normocephalic, MMM Respiratory: CTAB Cardiovascular: RRR, S1 and S2 present without S3, S4,m,r,g,h Abdomen: Soft, NT, BS+x4 Extremities: No cyanosis, clubbing, or edema present. Pulses are palpable 2/2. Active ROM to all four extremities. Neuro: A&Ox3. PERRLA. CN 2-12 intact without any focal deficit. Skin: Warm, partial thickness wounds to the buttocks, back of legs and appears red and warm. No active drainage. Psych: Pleasant, Normal affect and cooperative. Objective Data Vital Signs Vital Signs: Vital Signs - 24 hr 05/22/25 11:44 05/22/25 14:45 05/22/25 15:45 Temperature 98.7 F Pulse Rate 73 Respiratory Rate 18 Blood Pressure 93/50 L Pulse Oximetry 100 Oxygen Delivery Room Air Room Air 05/22/25 20:00 05/22/25 20:00 05/22/25 22:29 Temperature 97.9 F Pulse Rate 77 73 Respiratory Rate 18 Blood Pressure 126/65 Pulse Oximetry 99 Oxygen Delivery Room Air 05/23/25 00:00 05/23/25 04:00 05/23/25 06:00 Temperature 97.1 F L Pulse Rate 76 70 64 Respiratory Rate 18 Blood Pressure 103/44 L Pulse Oximetry 100 Oxygen Delivery Intake/Output Intake/Output: Intake & Output 05/20/25 05/21/25 05/22/25 05/23/25 23:59 23:59 23:59 23:59 Intake Total 3190 3590 1990 350 Output Total 1100 1150 1900 1400 Balance 2090 2440 90 -1050 Meds/Results Medications: Active Medications Generic Name Dose Route Start Last Admin Trade Name Freq PRN Reason Stop Dose Admin Acetaminophen 650 mg 05/20/25 03:24 Acetaminophen 325 Mg Tablet PO Q4H PRN Mild Pain (1-3) or Fever Aspirin 81 mg 05/21/25 09:00 05/22/25 09:10 Aspirin 81 Mg Enteric Tablet PO 81 mg QAM MARIEL Administration Azithromycin 500 mg 05/20/25 12:20 05/22/25 09:10 Azithromycin 500 Mg Tablet PO 500 mg DAILY MARIEL Administration Enoxaparin Sodium 40 mg 05/20/25 09:00 05/22/25 09:08 Enoxaparin 40 Mg/0.4 Ml Syringe SUB-Q 40 mg DAILY MARIEL Administration Ceftriaxone Sodium 1 gm/ 50 mls @ 100 mls/hr 05/21/25 04:00 05/23/25 05:20 Sodium Chloride IVPB 100 mls/hr Q24H MARIEL Administration Radiology Results: ITS Impressions Chest X-Ray 05/19/25 23:25 IMPRESSION: No focal infiltrate or effusion. Head CT 05/20/25 08:29 IMPRESSION: 1. No acute intracranial process. 2. Age-related changes including mild diffuse volume loss and moderate scattered white matter hypoattenuation consistent with chronic small vessel ischemic disease. Abdomen/Pelvis CT 05/20/25 09:39 IMPRESSION: 1. Tree-in-bud opacities in the dependent right middle lobe and at the basilar left lower lobe is also some focal consolidation consistent with aspiration and/or pneumonia. Chest CT 05/20/25 11:25 IMPRESSION: 1. Focal lung disease in mild in the dependent right middle lobe and more prominent at the basilar left lower lobe consistent with aspiration and/or pneumonia. Labs Labs: Laboratory Results - last 24 hr 05/20/25 05/22/25 05/23/25 15:56 14:17 05:20 WBC 3.1 L 3.6 L RBC 4.09 L 4.29 L Hgb 11.8 L 12.1 L Hct 36.1 L 38.0 L MCV 88.3 88.6 MCH 28.9 28.2 MCHC 32.7 31.8 L RDW 13.0 13.0 Plt Count 103 L 119 L MPV 9.6 10.0 Immature Gran % (Auto) 0.3 0.6 H Neut % (Auto) 63.0 61.4 Lymph % (Auto) 21.1 19.6 [place] % (Auto) 13.0 H 15.6 H Eos % (Auto) 2.3 2.5 Baso % (Auto) 0.3 0.3 Lymph # (Auto) 0.65 L 0.70 L [place] # (Auto) 0.4 0.6 Eos # (Auto) 0.1 0.1 Baso # (Auto) 0.0 0.0 Abs Immat Gran (auto) 0.01 0.02 Absolute Neuts (auto) 1.9 2.2 Absolute Nucleated RBC 0.000 0.000 Nucleated RBC % 0.0 0.0 Sodium 130 L Potassium 3.4 Chloride 101 Carbon Dioxide 27 Anion Gap 2 L BUN 13 D Creatinine 0.80 Estim Creat Clear Calc 53 Estimated GFR > 60 Glucose 105 Calcium 7.2 L Magnesium 1.8 Total Bilirubin 0.1 L AST 22 ALT 10 Alkaline Phosphatase 63 Total Protein 4.5 L Albumin 2.3 L Urine Pneumococcal Ag Cancelled 05/23/25 05:27 WBC RBC Hgb Hct MCV MCH MCHC RDW Plt Count MPV Immature Gran % (Auto) Neut % (Auto) Lymph % (Auto) [place] % (Auto) Eos % (Auto) Baso % (Auto) Lymph # (Auto) [place] # (Auto) Eos # (Auto) Baso # (Auto) Abs Immat Gran (auto) Absolute Neuts (auto) Absolute Nucleated RBC Nucleated RBC % Sodium 131 L Potassium 3.8 Chloride 104 Carbon Dioxide 25 Anion Gap 2 L BUN 12 Creatinine 0.78 Estim Creat Clear Calc 55 Estimated GFR > 60 Glucose 92 Calcium 7.5 L Magnesium 1.9 Total Bilirubin 0.2 AST 29 ALT 11 Alkaline Phosphatase 60 Total Protein 4.8 L Albumin 2.3 L Urine Pneumococcal Ag
--- NOTE | 2025-05-23 09:41 | P.DS_ITS ---
DS: Admitting Diagnosis Discharge Date 05/23/2025 Admitting Diagnosis weakness DS: Discharge Diagnosis Discharge Diagnosis (1) CAP (community acquired pneumonia): Code(s): J18.9 - Pneumonia, unspecified organism Status: Acute (2) Self-care deficit: Code(s): Z78.9 - Other specified health status Status: Acute (3) Hyponatremia: Code(s): E87.1 - Hypo-osmolality and hyponatremia Status: Acute (4) Impaired skin integrity: Code(s): R23.9 - Unspecified skin changes Status: Acute (5) Hyperkalemia: Code(s): E87.5 - Hyperkalemia Status: Resolved (6) Lactic acidosis: Code(s): E87.20 - Acidosis, unspecified Status: Acute (7) Poor personal hygiene: Code(s): R46.0 - Very low level of personal hygiene Status: Acute (8) Coronary artery disease: Code(s): I25.10 - Atherosclerotic heart disease of [place] coronary artery without angina pectoris Status: Chronic DS: Summary Hospital Course Hospital Course: # CAP (community acquired pneumonia): No clear hx or sign of aspiration at this time Check MRSA PCR which came back negative and urine antigens for pneumococcus and legionella pending Treat with ceftriaxone and azithromycin as no evidence of abscess Wean oxygen as tolerated will switch to oral at discharge. respiraotry cardenas doing well. # Self-care deficit: * As evidenced by patient being found in apparent filth with dried stool and vomit present on multiple layers of clothing. * He may qualify for SNF or rehab due to debility and need for wound care * Care coordination consulted for placement # Hyponatremia: Mild. Recheck and monitor Currently on normal saline at 100 cc an hour Will stop that Continue to monitor # Impaired skin integrity: * See pictures in EMR. * Awaiting wound consult * Orders placed to turn patient q.2 hours # Hyperkalemia: * Most likely due to hemoconcentration. * Potassium of 5.3 treated with Lokelma and calcium by ED * Continue to monitor # Lactic acidosis: * Initial lactic acid 4.2. * After hydration patient's repeat lactic acid is 1.4. * Blood cultures x2 no growth to date * Potential source of infection as seen in CT abdomen and pelvis with concern for aspiration in the base the left lung. * CT chest 05/19: Focal lung disease in mild in the dependent right middle lobe and more prominent at the basilar left lower lobe consistent with aspiration and/or pneumonia. * 05/20 Resolved # Poor personal hygiene: Whether this is choice, mental illness, or dementia is difficult to determine at this time as he may be suffering from metabolic encephalopathy related to his pneumonia His brother, with whom he live, claims that the patient functions independently at baseline # Coronary artery disease: Resume ASA 81 mg daily # Disposition: PT OT to see needs placement. SNF was arranged at [facility] per Care cooridination Time Spent with Patient Time attestation: Total time spent providing and/or coordinating discharge services:35 mins Exam Narrative: General: Very poorly kempt male pt laying in bed not in acute distress HEENT: Atraumatic/Normocephalic, MMM Respiratory: CTAB Cardiovascular: RRR, S1 and S2 present without S3, S4,m,r,g,h Abdomen: Soft, NT, BS+x4 Extremities: No cyanosis, clubbing, or edema present. Pulses are palpable 2/2. Active ROM to all four extremities. Neuro: A&Ox3. PERRLA. CN 2-12 intact without any focal deficit. Skin: Warm, partial thickness wounds to the buttocks, back of legs and appears red and warm. No active drainage. Psych: Pleasant, Normal affect and cooperative. DS: Data Data Completed and Pending Labs on day of discharge: Labs from last 24 hours 05/23/25 05/23/25 05/22/25 05:27 05:20 14:17 WBC 3.6 L 3.1 L RBC 4.29 L 4.09 L Hgb 12.1 L 11.8 L Hct 38.0 L 36.1 L MCV 88.6 88.3 MCH 28.2 28.9 MCHC 31.8 L 32.7 RDW 13.0 13.0 Plt Count 119 L 103 L MPV 10.0 9.6 Immature Gran % (Auto) 0.6 H 0.3 Neut % (Auto) 61.4 63.0 Lymph % (Auto) 19.6 21.1 [place] % (Auto) 15.6 H 13.0 H Eos % (Auto) 2.5 2.3 Baso % (Auto) 0.3 0.3 Lymph # (Auto) 0.70 L 0.65 L [place] # (Auto) 0.6 0.4 Eos # (Auto) 0.1 0.1 Baso # (Auto) 0.0 0.0 Abs Immat Gran (auto) 0.02 0.01 Absolute Neuts (auto) 2.2 1.9 Absolute Nucleated RBC 0.000 0.000 Nucleated RBC % 0.0 0.0 Sodium 131 L 130 L Potassium 3.8 3.4 Chloride 104 101 Carbon Dioxide 25 27 Anion Gap 2 L 2 L BUN 12 13 D Creatinine 0.78 0.80 Estim Creat Clear Calc 55 53 Estimated GFR > 60 > 60 Glucose 92 105 Calcium 7.5 L 7.2 L Magnesium 1.9 1.8 Total Bilirubin 0.2 0.1 L AST 29 22 ALT 11 10 Alkaline Phosphatase 60 63 Total Protein 4.8 L 4.5 L Albumin 2.3 L 2.3 L Preliminary micro results at discharge 05/20/25 00:15 Blood Culture - Preliminary Blood 05/19/25 22:38 Blood Culture - Preliminary Blood 05/20/25 15:55 Specimen Source - Preliminary Urine - Urine,Catheterized Streptococcus pneumoniae Ag Screen - Preliminary Sterile Body Fluid Culture - Preliminary Organism Identification - Preliminary Imaging Radiologist's impression: ITS Impressions Chest X-Ray 05/19/25 23:25 IMPRESSION: No focal infiltrate or effusion. Head CT 05/20/25 08:29 IMPRESSION: 1. No acute intracranial process. 2. Age-related changes including mild diffuse volume loss and moderate scattered white matter hypoattenuation consistent with chronic small vessel ischemic disease. Abdomen/Pelvis CT 05/20/25 09:39 IMPRESSION: 1. Tree-in-bud opacities in the dependent right middle lobe and at the basilar left lower lobe is also some focal consolidation consistent with aspiration and/or pneumonia. Chest CT 05/20/25 11:25 IMPRESSION: 1. Focal lung disease in mild in the dependent right middle lobe and more prominent at the basilar left lower lobe consistent with aspiration and/or pneumonia. Discharge Plan Discharge Attending physician on discharge: Master Cerna Discharging Clinician: Master Cerna Anticipated Discharge Date/Time: 05/23/25 09:40 Patient Disposition: SNF Activity: as tolerated Diet: regular and other - see discharge instructions Discharge Instructions: soft and bite sized, level 6 diet Patient Language: [place] Stand Alone Forms: General Discharge Information Follow-up/Referrals: Manjeet Fernandez MD [Primary Care Provider, Family Practice] - 2 Weeks Discharge Medications: New azithromycin 500 mg tablet 500 mg PO DAILY 2 Days Qty: 2 0RF Rx Instructions: start on day 2 of therapy aspirin 81 mg Tablet,Delayed Release (Dr/Ec) 81 mg PO QAM Qty: 30 0RF amoxicillin-pot clavulanate 875-125 mg tablet 1 tablet PO Q12H Qty: 8 0RF Other Ambulatory Orders: Basic Metabolic Panel (Routine) Timeframe: 1 Week Location: Determined by Patient Ordered By: Master Cerna Date of admission: 05/21/25 10:22 Primary Care Provider: Manjeet Fernandez Admitting Provider: Tabatha Skaggs Attending physician on admission: Tabatha Skaggs Condition: Stable
[2025-05-23] MEDS: ASPIRIN 81 MG ENTERIC TABLET PO (09:43)
[2025-05-23] MEDS: AZITHROMYCIN 500 MG TABLET PO (09:43)
[2025-05-23] MEDS: ACETAMINOPHEN 325 MG TABLET 650 MG PO (09:45)
[2025-05-23] MEDS: ENOXAPARIN 40 MG/0.4 ML SYRINGE SUB-Q (09:47)
[2025-05-23 14:35] VITALS: BP 93/50; PULSE 74; RESP 18; TEMP 36.7; O2SAT 98
[2025-05-23 15:09] LABS: Osmolality, Urine 592 mOsmol/kg (.)
[2025-05-23 21:09] VITALS: BP 119/62; PULSE 64; PULSE 72; RESP 18; RESP 20; TEMP 36.9; O2SAT 100; O2SAT 95
[2025-05-24 01:07] LABS: Osmolality, Serum 277 mOsmol/kg (280-301)
[2025-05-24 08:08] LABS: HSV-1 DNA Negative (Negative); HSV-2 DNA Negative (Negative)
== END 2025-05-23 21:23 | DRG 194 ==
LOC: ANHED 05-20 05:26 → ANH3MED 05-20 07:02
PROVIDERS: Internal Medicine; Nurse Practitioner Adult Health; Admitting Provider Family Medicine; Emergency Provider Student in an Organized Health Care Education/Training Program; PCP Emergency Medicine; Visit Provider Internal Medicine
DX: J18.9 Pneumonia, unspecified organism (principal); E87.1 Hypo-osmolality and hyponatremia; G91.9 Hydrocephalus, unspecified; E87.20 Acidosis, unspecified; I10 Essential (primary) hypertension; I25.10 Atherosclerotic heart disease of native coronary artery without angina pectoris; E87.5 Hyperkalemia; E78.5 Hyperlipidemia, unspecified; L98.8 Other specified disorders of the skin and subcutaneous tissue; R62.7 Adult failure to thrive; R46.0 Very low level of personal hygiene; F79 Unspecified intellectual disabilities; G47.33 Obstructive sleep apnea (adult) (pediatric); Z74.1 Need for assistance with personal care; Z68.21 Body mass index [BMI] 21.0-21.9, adult; I25.2 Old myocardial infarction; Z95.1 Presence of aortocoronary bypass graft
CPT/HCPCS: 36415; 70450; 71045; 71260; 74177; 80048; 80053; 81001; 82550; 83605; 83735; 83930; 83935; 84443; 85025; 85610; 85730; 86140; 86593; 86615; 87040; 87449; 87529; 87641; 87899; 93005; 96360; 96365; 96366; 96367; 96375; 97162; 97165; 99285; A9270; G0378; J0612; J0696; J1650; J1836; J3373; J7030; J7120; Q9967

== ENCOUNTER 2025-07-17 13:06 | Emergency (ER) | payer MEDICARE, MEDICAID, SELFPAY ==
[2025-07-17 13:14] VITALS: BP 124/63; PULSE 70; RESP 20; O2SAT 100
--- NOTE | 2025-07-17 13:17 | ECG_ITS ---
Test Date: 2025-07-17 13:26:19 Measurements Intervals [place] Rate: 69 P: 31 CT: 140 QRS: 20 QRSD: 92 T: 53 QT: 399 QTc: 429 Interpretive Statements SINUS RHYTHM BASELINE ARTIFACT- I, II, AVR, AVL, AVF, V1-V6 NORMAL ECG Compared to ECG 05/19/2025 22:17:35 Left bundle-branch block no longer present Electronically Signed On 07-17-2025 15:36:06 CDT by Dixon Rubio D.O.
[2025-07-17 13:27] VITALS: PULSE 70; RESP 20; TEMP 36.4; O2SAT 100
[2025-07-17 13:47] LABS: Hematocrit 41.4 % (42.0-52.0); Hemoglobin 13.2 g/dL (14.0-18.0); Immature Granulocyte Percent A 0.1 % (0-0.5); Lymphocytes Absolute Auto 0.99 K/mm3 (0.9-3.2); Mean Corpuscular HGB Conc 31.9 g/dl (32-36); Mean Corpuscular Hemoglobin 29.9 pg (26-34); Mean Corpuscular Volume 93.7 fl (80-100); Nucleated Red Blood Cells Absolute Auto 0.000 K/mm3 (0.0-0.012); Nucleated Red Blood Cells Perc 0.0 % (0.0-0.2); Platelet Count Result 153 k/mm3 (150-375); Red Blood Count 4.42 M/mm3 (4.6-6.20); White Blood Count 6.7 K/mm3 (4.5-10.0)
[2025-07-17 14:03] LABS: INR 1.0; Partial Thromboplastin Time 29.7 Seconds (22.3-36.8); Prothrombin Time 13.2 Seconds (11.1-14.7)
[2025-07-17 14:25] LABS: Alanine Aminotransferase 12 U/L (6-50); Albumin Level 3.6 g/dL (3.5-5.1); Alkaline Phosphatase 104 U/L (38-126); Anion Gap 5 mmol/L (4-12); Aspartate Amino Transferase 24 U/L (17-59); Bilirubin,Total 0.3 mg/dL (0.2-1.3); Blood Urea Nitrogen 18 mg/dL (9-20); Calcium 8.5 mg/dL (8.4-10.2); Carbon Dioxide 29 mmol/L (22-30); Chloride 105 mmol/L (98-107); Estimated Glomerular Filt Rate > 60; Glucose 93 mg/dL (65-110); Potassium 4.2 mmol/L (3.4-5.0); Sodium 139 mmol/L (137-145); Total Protein 6.2 g/dL (6.3-8.2)
[2025-07-17 14:45] VITALS: BP 132/65; PULSE 69; RESP 20; O2SAT 100
[2025-07-17 14:59] LABS: Add Urine Microscopic? YES; Appearance Urine Clear (Clear); Glucose Urine UA Negative (Negative); Leukocyte Esterase Ur Negative LEU/UL (Negative); Nitrate Urine Negative (Negative); Non Pathogenic Casts 0-2; Specific Grav Ur 1.023 (1.001-1.035)
--- NOTE | 2025-07-17 15:13 | ED.GENADULT ---
HPI - General Adult General Chief complaint: Altered Mental Status Stated complaint: AMS Time Seen by Provider: 07/17/25 13:28 History of Present Illness HPI narrative: Patient is a 79-year-old male with history of dementia who presents ER with concerns for possible altered mental status. He had some additional confusion after lunch today so they sent him here to be safe. He has no complaints of pain or discomfort. He is oriented to self alone and is aware that he is in the navel area and is at a hospital. He is in no distress. Related Data Allergies Allergy/AdvReac Type Severity Reaction Status Date / Time No Known Allergies Allergy Verified 07/17/25 13:20 Review of Systems Review of Systems: ROS unobtainable: Yes unobtainable due to mental status PMFSH Past Medical History Medical History (Updated 07/17/25 @ 15:16 by Julio Olivarez MD) Impaired skin integrity Hyponatremia Lactic acidosis Hyperkalemia Self-care deficit Intellectual disability Hydrocephalus Anxiety Hyperlipidemia Noted in previous records. Not currently on medication. Hypertension Noted in previous records. Not currently on medication. Obstructive sleep apnea Noted in previous records. He does not use a CPAP. Coronary artery disease STEMI in fall 2018 status post PCI to the LAD. Surgical History Surgical History History of esophagogastroduodenoscopy History of appendectomy History of cardiac catheterization (2018) Fall 2018: PCI to the LAD done at [place]. 07/11/2019: Balloon angioplasty to the distal terminal LAD. Family History Family History (Updated 05/20/25 @ 08:07 by Karlee Maria RN) Other Diabetes mellitus Unknown family medical history Social History Social History Social History: Surrogate decision maker: Boni Flores, brother. Code status: Full code. Smoking status: Never smoker Alcohol intake: never Substance use: never Substance use type: does not use Do You Feel Safe in your Home?: Yes Lack of Transportation: No Lack of Food: Never True Current Housing: I Have Housing Concerned About Future Housing: No Difficulty Paying Gas/Electric Bills: No Difficulty Paying for Meds: No Currently Unemployed: No Education: Decline to Answer Difficulty w/ Childcare or Family Care: No Living arrangements: with family Additional living arrangements comments: The patient lives with his brother in [place]. Spiritual care concerns: No Exam Narrative: GENERAL: Well-appearing, well-nourished, and in no acute distress. HEAD: Normocephalic, atraumatic. ENT: Mucous membranes moist. CHEST: Clear to auscultation. No respiratory distress. HEART: Regular rate and rhythm. Normal peripheral pulses. ABDOMEN: Soft, nontender, nondistended. EXTREMITIES: Normal range of motion. No edema. SKIN: Warm, dry, no rash. NEURO: Alert and oriented x2. PSYCH: Normal mood and affect. Course Course Emergency Course: Unremarkable exam. Patient is resting comfortably without complaints. He is asking to be sent back to the facility that he lives in. Vital Signs Vital signs: Vital Signs Pulse Rate 70 07/17/25 13:14 Respiratory Rate 20 07/17/25 13:14 Blood Pressure 124/63 07/17/25 13:14 Pulse Oximetry 100 07/17/25 13:14 Oxygen Delivery Room Air 07/17/25 13:14 Temperature 97.6 F 07/17/25 13:27 Pulse Rate 69 07/17/25 14:45 Respiratory Rate 20 07/17/25 14:45 Blood Pressure 132/65 07/17/25 14:45 Pulse Oximetry 100 07/17/25 14:45 Oxygen Delivery Room Air 07/17/25 13:35 Medical Decision Making Vital Signs Vital Signs: Vital Signs Pulse Rate 70 07/17/25 13:14 Respiratory Rate 20 07/17/25 13:14 Blood Pressure 124/63 07/17/25 13:14 Pulse Oximetry 100 07/17/25 13:14 Oxygen Delivery Room Air 07/17/25 13:14 Temperature 97.6 F 07/17/25 13:27 Pulse Rate 69 07/17/25 14:45 Respiratory Rate 20 07/17/25 14:45 Blood Pressure 132/65 07/17/25 14:45 Pulse Oximetry 100 07/17/25 14:45 Oxygen Delivery Room Air 07/17/25 13:35 Lab Data 07/17/25 13:33 07/17/25 13:33 Labs: Lab Results 07/17/25 07/17/25 Range/Units 13:33 14:46 WBC 6.7 (4.5-10.0) K/mm3 RBC 4.42 L (4.6-6.20) M/mm3 Hgb 13.2 L (14.0-18.0) g/dL Hct 41.4 L (42.0-52.0) % MCV 93.7 (80-100) fl MCH 29.9 (26-34) pg MCHC 31.9 L (32-36) g/dl RDW 15.3 H (11.5-14.5) % Plt Count 153 (150-375) k/mm3 MPV 9.5 (7.4-10.4) fl Immature Gran % (Auto) 0.1 (0-0.5) % Neut % (Auto) 72.3 (45.5-73.1) % Lymph % (Auto) 14.8 L (18.3-44.2) % [place] % (Auto) 9.7 H (2.6-8.5) % Eos % (Auto) 2.8 (0-4.4) % Baso % (Auto) 0.3 (0.2-1.2) % Lymph # (Auto) 0.99 (0.9-3.2) K/mm3 [place] # (Auto) 0.7 H (0.1-0.6) K/mm3 Eos # (Auto) 0.2 (0-0.3) K/mm3 Baso # (Auto) 0.0 (0.0-0.1) K/mm3 Abs Immat Gran (auto) 0.01 (0.00-0.031) K/mm3 Absolute Neuts (auto) 4.8 (1.3-6.7) K/mm3 Absolute Nucleated RBC 0.000 (0.0-0.012) K/mm3 Nucleated RBC % 0.0 (0.0-0.2) % PT 13.2 (11.1-14.7) Seconds INR 1.0 APTT 29.7 (22.3-36.8) Seconds Sodium 139 (137-145) mmol/L Potassium 4.2 (3.4-5.0) mmol/L Chloride 105 (98-107) mmol/L Carbon Dioxide 29 (22-30) mmol/L Anion Gap 5 (4-12) mmol/L BUN 18 (9-20) mg/dL Creatinine 0.93 (0.7-1.3) mg/dL Estim Creat Clear Calc Not Reportable Estimated GFR > 60 (59 - ) Glucose 93 (65-110) mg/dL Calcium 8.5 (8.4-10.2) mg/dL Total Bilirubin 0.3 (0.2-1.3) mg/dL AST 24 (17-59) U/L ALT 12 (6-50) U/L Alkaline Phosphatase 104 (38-126) U/L Total Protein 6.2 L (6.3-8.2) g/dL Albumin 3.6 (3.5-5.1) g/dL Urine Color Yellow (Yellow) Urine Appearance Clear (Clear) Urine pH 6.5 (5.0-9.0) Ur Specific [place] 1.023 (1.001-1.035) Urine Protein 1+ H (Negative) mg/dL Urine Glucose (UA) Negative (Negative) mg/dL Urine Ketones Negative (Negative) mg/dL Ur Blood (Man) 1+ H (Negative) Urine Nitrate Negative (Negative) Urine Bilirubin Negative (Negative) Urine Urobilinogen 1.0 (<2.0) mg/dL Leukocyte Esterase Rfl Negative (Negative) GERARDO/UL Urine RBC 21-50 H (0-2) /hpf Urine WBC 0-5 (0-3) /hpf Ur Squamous Epith Cells None seen (Few) /hpf Urine Bacteria None seen /hpf Urine Casts 0-2 ECG Data EKG #1: ECG completion date: 07/17/25 ECG completion time: 13:26 EKG Interpretation: normal rate (69), sinus rhythm, no ST changes, normal QRS and normal QT Discharge Plan Discharge Clinical Impression: Normal exam Patient Disposition: Home Condition: Stable Instructions: General Patient Instructions Additional Instructions: Return ER if you have chest pain shortness of breath, he cannot keep down food water, or you lose consciousness. Patient Language: [place] Prescriptions: No Action aspirin 81 mg Tablet,Delayed Release (Dr/Ec) 81 mg PO QAM Qty: 30 0RF azithromycin 500 mg tablet 500 mg PO DAILY 2 Days Qty: 2 0RF Rx Instructions: start on day 2 of therapy amoxicillin-pot clavulanate 875-125 mg tablet 1 tablet PO Q12H Qty: 8 0RF Follow-up/Referrals: Manjeet Fernandez MD [Primary Care Provider, Family Practice] - 1 Week
--- OUTSIDE RECORDS SUMMARY | 2025-07-17 15:15 | XMS_ITS | Clinical Summary ---
Author Organization [facility] Address [address] [place] [id number] Care Team Providers Care Melt House Drag Operator Name Role Phone Unavailable Primary Care [...] COVID-19 Vaccine ( - 2023-2 5 season) 2025 Influenza Adult (#1) 2025 Meningococcal B Vaccine Aged Out No l onger eligible based on patient's age to complete this topic Meningococcal Vaccine Aged Out No titus janette eligible based on patient's age to complete this topic RSV Immunizations Under 20 Months Aged Out No longer eligible based on patient's age to complete this topic
--- OUTSIDE RECORDS SUMMARY | 2025-07-17 15:15 | XMS_ITS | Clinical Summary ---
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
--- OUTSIDE RECORDS SUMMARY | 2025-07-17 15:15 | XMS_ITS | Clinical Summary ---
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 Name Role Phone Unavailable Primary Care Provider [...] on file Legal Sex Male 2:19 PM DOOR PATCHER Gender Identity Not on file Sexual Orientation Not on file Last Filed Vital Signs Vital Sign Reading Time Taken Comments Blood Pressure 122/77 09/30/2017 1:26 PM DOOR PATCHER Pulse 102 09/30/2017 1:26 PM DOOR PATCHER Temperature 36.6 C (97.8 F) 09/30/2017 1:26 PM DOOR PATCHER Respiratory Rate 18 09/30/2017 1:26 PM DOOR PATCHER Oxygen Saturation 92% 09/21/2017 2:08 PM DOOR PATCHER Inhaled Oxygen Concentration - - Weight 100.2 kg (221 lb) 09/30/2017 1:26 PM DOOR PATCHER Height 162.6 cm (5' 4) 09/30/2017 1:26 PM DOOR PATCHER Body Mass Index 37.93 09/30/2017 1:26 PM DOOR PATCHER Plan of Treatment Health Maintenance Due Date Last Done Comments DTAP/TDAP/TD VACCINES (1 - Tdap) 1964 PNEUMOCOCCAL VACCINE 50+ YEARS (1 of 1 - PCV) 10/05/18 96 ZOSTER VACCINE (1 of 2) 1995 RSV VACCINE (60+ or ) (1 - 1-dose 75+ series) 2020 INFLUENZA VACCINE (#1) 2025 Insurance MEDICARE PART B
[2025-07-17 15:40] VITALS: BP 143/88; PULSE 73; RESP 20; O2SAT 100
== END 2025-07-17 15:44 ==
PROVIDERS: Emergency Provider Emergency Medicine; PCP Emergency Medicine
DX: Z04.89 Encounter for examination and observation for other specified reasons (principal); F03.90 Unspecified dementia, unspecified severity, without behavioral disturbance, psychotic disturbance, mood disturbance, and anxiety; I25.10 Atherosclerotic heart disease of native coronary artery without angina pectoris; I25.2 Old myocardial infarction; I10 Essential (primary) hypertension; E78.5 Hyperlipidemia, unspecified; F79 Unspecified intellectual disabilities; Z79.82 Long term (current) use of aspirin; Z98.61 Coronary angioplasty status
CPT/HCPCS: 36415; 80053; 81001; 85025; 85610; 85730; 93005; 99283